=== PATIENT | male | born 1985 ===

== ENCOUNTER 2023-09-05 11:38 | Outpatient (REF) | payer MEDICAID, SELFPAY ==
[2023-09-05 13:17] LABS: MANUAL DIFF FLAG NO
[2023-09-05 13:25] LABS: Basophils Percent Auto 0.4 % (0-2); Eosinophils Percent Auto 0.4 % (0-4); Hematocrit 46.7 % (42.0-52.0); Hemoglobin 15.4 g/dl (14.0-18.0); Imm Gran Abs Auto 0.03 X10*3/uL (0.00-0.03); Imm Gran Pct Auto 0.3 % (0.0-0.4); Mean Corpuscular Hemoglobin 29.1 pg (27.0-33.0); Mean Corpuscular Volume 88.1 fL (80.0-98.0); Mean Platelet Volume 11.2 fL (9.4-12.4); Monocytes Absolute Auto 0.5 X10*3/uL (0.1-1.2); Monocytes Percent Auto 4.7 % (2-11); Neutrophils Absolute Auto 6.7 x10*3/uL (2.0-8.3); Neutrophils Percent Auto 65.2 % (45-73); Platelet Count 370 X10*3/uL (160-400); Red Cell Distribution Width 14.2 % (11.0-16.0); White Blood Count 10.3 X10*3/uL (4.8-10.8)
[2023-09-05 13:34] LABS: Estimated Average Glucose 111 mg/dL; Hemoglobin A1c % 5.5 % (<6.0)
[2023-09-05 14:12] LABS: Microalbum/Creatinine Ratio Ur 26.7 ug/mg cr (<30)
[2023-09-05 14:40] LABS: Alanine Aminotransferase 16 U/L (0-40); Albumin Level 4.4 g/dL (3.5-5.0); Alkaline Phosphatase 89 U/L (39-117); Anion Gap 18 (12-20); Aspartate Amino Transferase 16 U/L (5-37); Bilirubin Total 0.9 mg/dL (0.0-1.0); Blood Urea Nitrogen 9 mg/dL (9-16); Calcium 9.7 mg/dL (8.4-10.2); Carbon Dioxide 22 mmol/L (22-29); Chloride 108 mmol/L (96-108); Cholesterol 202 mg/dL (<200); Estimated Glomerular Filt Rate > 60; Glucose Random 103 mg/dL (60-115); HDL Cholesterol 49 mg/dL (>40); LDL Cholesterol Calculated 131 mg/dL (<100); Potassium 3.6 mmol/L (3.3-5.1); Sodium 144 mmol/L (135-145); Total Protein 8.5 g/dL (6.5-8.0); Triglycerides 111 mg/dL (<150); Vitamin D 25-OH Total 32.7 ng/mL (>30)
[2023-09-06 18:54] LABS: HCV Log PCR <1.18 NOT DETECTED Log IU/mL (NOT DETECTED); HepC Viral Load <15 NOT DETECTED IU/mL (NOT DETECTED)
== END 2023-09-05 11:39 | disposition home or self-care (01) ==
LOC: HO.HHCL 11:38
PROVIDERS: Visit Provider Family Medicine
DX: E11.9 Type 2 diabetes mellitus without complications (principal); E55.9 Vitamin D deficiency, unspecified; K21.9 Gastro-esophageal reflux disease without esophagitis; B18.2 Chronic viral hepatitis C
CPT/HCPCS: 36415; 80053; 80061; 82043; 82306; 82570; 83036; 85025; 87522

== ENCOUNTER 2023-09-30 19:19 | Inpatient (IN) | payer MEDICAID, OTHER, SELFPAY ==
[2023-09-30 19:36] VITALS: BP 130/73; PULSE 73; RESP 16; TEMP 36.6; O2SAT 98; BMI 38.8
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
[2023-09-30 20:44] LABS: MANUAL DIFF FLAG NO
[2023-09-30 20:52] LABS: Basophils Absolute Auto 0.1 X10*3/uL (0.0-0.2); Basophils Percent Auto 0.4 % (0-2); Eosinophils Absolute Auto 0.1 X10*3/uL (0.0-0.4); Eosinophils Percent Auto 0.8 % (0-4); Hematocrit 45.2 % (42.0-52.0); Hemoglobin 15.3 g/dl (14.0-18.0); Imm Gran Abs Auto 0.03 X10*3/uL (0.00-0.03); Imm Gran Pct Auto 0.2 % (0.0-0.4); Lymphocytes Absolute Auto 2.9 X10*3/uL (1.2-4.9); Lymphocytes Percent Auto 21.6 % (20-40); Mean Corpuscular HGB Conc 33.8 g/dl (31.0-36.0); Mean Corpuscular Hemoglobin 29.4 pg (27.0-33.0); Mean Corpuscular Volume 86.9 fL (80.0-98.0); Mean Platelet Volume 10.7 fL (9.4-12.4); Monocytes Absolute Auto 0.7 X10*3/uL (0.1-1.2); Monocytes Percent Auto 4.9 % (2-11); Neutrophils Absolute Auto 9.8 x10*3/uL (2.0-8.3); Neutrophils Percent Auto 72.1 % (45-73); Platelet Count 298 X10*3/uL (160-400); Red Cell Distribution Width 14.3 % (11.0-16.0); White Blood Count 13.6 X10*3/uL (4.8-10.8)
[2023-09-30 21:00] LABS: IDNOW Serial# 08D9AD1C
[2023-09-30 21:01] LABS: COVID-19 Test Negative (Negative)
[2023-09-30 21:09] LABS: Ethanol < 10 mg/dL
[2023-09-30 21:11] LABS: Alanine Aminotransferase 56 U/L (0-40); Albumin Level 4.4 g/dL (3.5-5.0); Alkaline Phosphatase 88 U/L (39-117); Anion Gap 13 (12-20); Aspartate Amino Transferase 158 U/L (5-37); Bilirubin Total 1.9 mg/dL (0.0-1.0); Blood Urea Nitrogen 20 mg/dL (9-16); Carbon Dioxide 22 mmol/L (22-29); Chloride 108 mmol/L (96-108); Creatinine Clr Calc Pharmacy 72.2; Estimated Glomerular Filt Rate 44; Glucose Random 136 mg/dL (60-115); Potassium 3.3 mmol/L (3.3-5.1); Sodium 140 mmol/L (135-145); Total Protein 8.1 g/dL (6.5-8.0)
[2023-09-30 22:44] LABS: Appearance Urine Clear; Color Urine Dark Yellow; Glucose Urine UA Negative (Negative); Leukocyte Esterase Urine Negative (Negative); Nitrite Urine Negative (Negative); Specific Gravity - Urine >= 1.030 (1.005-1.025); UMIC TRIGGER UACC YES; Urine Blood Negative (Negative); Urine Ketones 40 mg/dL (Negative); Urine Protein 30 (1+) mg/dL (Neg-Trace)
[2023-09-30 22:49] LABS: Bacteria Urine None Seen (None Seen); Hyaline Casts Urine 0-2 /LPF (0-2); RBC Urine 0-2 /HPF (0-2); Squamous Epithelial Cell Urine 0-2 /HPF (0-2); WBC Urine 0-5 /HPF (0-5)
[2023-09-30 22:54] LABS: Amphetamine Screen Urine Not Detected (Not Detect); Barbiturates, Urine Not Detected (Not Detect); Benzodiazepines Screen Urine Not Detected (Not Detect); Buprenorphine Scr Not Detected (Not Detect); Cannabinoid Screen Urine POSITIVE (Not Detect); Cocaine Screen Urine POSITIVE (Not Detect); Fentanyl, urine Not Detected (Not Detect); Methadone Screen, Urine Not Detected (Not Detect); Opiate Screen Urine Not Detected (Not Detect); Oxycodone Screen Urine Not Detected (Not Detect); Phencyclidine Screen Urine Not Detected (Not Detect)
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
[2023-10-01 06:30] VITALS: BP 92/68; PULSE 90; RESP 16; TEMP 37.1; O2SAT 98
[2023-10-01 07:25] VITALS: BP 123/74; PULSE 73; RESP 16; TEMP 36.8; O2SAT 97
--- NOTE | 2023-10-01 07:25 | PC.NURSE ---
PT IS A/O X 4 NO SOB/NIA NOTED SPEAKS IN FULL SENTENCES. PT DENIES ANY PAIN/DISC. PT AMB (I) GAIT STEADY TO BATHROOM AND BTB. PT STATES +SI, DENIES ANY HALLUCINATIONS. PT AWARE OF PLAN OF CARE. WILL CONTINUE TO MONITOR.
--- NOTE | 2023-10-01 07:53 | ECG_ITS ---
Test Reason : QT INTERVAL Blood Pressure : / mmHG Vent. Rate : 060 BPM Atrial Rate : 060 BPM P-R Int : 140 ms QRS Dur : 080 ms QT Int : 498 ms P-R-T Axes : 046 018 -05 degrees QTc Int : 498 ms Normal sinus rhythm Nonspecific T wave abnormality Prolonged QT Abnormal ECG No previous ECGs available Referred By: Treva Shannon Electronically Signed By:MURIEL LICONA MD
[2023-10-01 08:07] LABS: Anion Gap 15 (12-20); Blood Urea Nitrogen 16 mg/dL (9-16); Calcium 9.5 mg/dL (8.4-10.2); Carbon Dioxide 21 mmol/L (22-29); Chloride 108 mmol/L (96-108); Creatinine Clr Calc Pharmacy 123.9; Estimated Glomerular Filt Rate > 60; Glucose Random 106 mg/dL (60-115); Potassium 3.2 mmol/L (3.3-5.1); Sodium 141 mmol/L (135-145)
--- NOTE | 2023-10-01 08:29 | ECG_ITS ---
Test Reason : QT INTERVAL Blood Pressure : / mmHG Vent. Rate : 062 BPM Atrial Rate : 062 BPM P-R Int : 152 ms QRS Dur : 078 ms QT Int : 464 ms P-R-T Axes : 031 003 000 degrees QTc Int : 470 ms Normal sinus rhythm Normal ECG When compared with ECG of 01-OCT-2023 08:00, No significant change was found Referred By: Treva Shannon Electronically Signed By:MURIEL LICONA MD
[2023-10-01] MEDS: Potassium Chloride Packet 20 MEQ PACKET 40 MEQ PO (08:40)
--- NOTE | 2023-10-01 10:17 | PHA.MEDREC ---
Pharmacy Consult ? Medication Reconciliation Pharmacy has completed the medication reconciliation. Reviewed med rec done by nursing
[2023-10-01] MEDS: Famotidine 20 MG TABLET 40 MG PO (10:31)
[2023-10-01] MEDS: FLUoxetine HCl 20 MG CAPSULE 40 MG PO (10:31)
[2023-10-01] MEDS: metFORMIN HCl 500 MG TABLET PO ×2 (10:31→16:57)
[2023-10-01] MEDS: Aspirin Enteric Coated 81 MG TABLET.DR PO (10:32)
[2023-10-01] MEDS: Cholecalciferol (Vitamin D3) 25 MCG TABLET 50 MCG PO (10:32)
[2023-10-01] MEDS: Atorvastatin Calcium 20 MG TABLET PO (10:32)
[2023-10-01] MEDS: OXcarbazepine 300 MG TABLET PO ×2 (10:32→21:04)
[2023-10-01] MEDS: OLANZapine 10 MG TABLET PO ×2 (10:33→21:05)
[2023-10-01] MEDS: Losartan Potassium 25 MG TABLET PO (10:40)
[2023-10-01] MEDS: SITagliptin Phosphate 50 MG TABLET PO (11:22)
--- NOTE | 2023-10-01 13:41 | PC.NURSE ---
RN TO RN REPORT GIVEN TO TOBI PT AWARE OF PLAN OF CARE FOR TRANSFER TO [facility].
[2023-10-01 14:48] VITALS: BP 105/59; PULSE 68; RESP 20; TEMP 36.8; O2SAT 97
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
[2023-10-01 20:00] VITALS: BP 125/60; PULSE 65; RESP 16; TEMP 36.9; O2SAT 98
[2023-10-01 21:03] VITALS: BP 125/60
[2023-10-01] MEDS: Prazosin HCL 1 MG CAPSULE 2 MG PO (21:03)
[2023-10-01 21:04] VITALS: BP 125/60
[2023-10-01] MEDS: Prazosin HCL 5 MG CAPSULE PO (21:04)
[2023-10-01] MEDS: traZODone HCL 100 MG TABLET PO (21:04)
[2023-10-02] MEDS: Losartan Potassium 25 MG TABLET PO (08:23)
[2023-10-02] MEDS: Atorvastatin Calcium 20 MG TABLET PO (08:23)
[2023-10-02] MEDS: Aspirin Enteric Coated 81 MG TABLET.DR PO (08:23)
[2023-10-02] MEDS: Cholecalciferol (Vitamin D3) 25 MCG TABLET 50 MCG PO (08:23)
[2023-10-02] MEDS: OXcarbazepine 300 MG TABLET PO ×2 (08:23→20:29)
[2023-10-02] MEDS: SITagliptin Phosphate 50 MG TABLET PO (08:23)
[2023-10-02] MEDS: FLUoxetine HCl 20 MG CAPSULE 40 MG PO (08:23)
[2023-10-02] MEDS: OLANZapine 10 MG TABLET PO ×2 (08:23→20:29)
[2023-10-02] MEDS: Famotidine 20 MG TABLET 40 MG PO (08:23)
[2023-10-02] MEDS: metFORMIN HCl 500 MG TABLET PO ×2 (08:24→17:08)
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
[2023-10-02 20:28] VITALS: BP 109/56
[2023-10-02] MEDS: Prazosin HCL 5 MG CAPSULE PO (20:28)
[2023-10-02] MEDS: Prazosin HCL 1 MG CAPSULE 2 MG PO (20:28)
[2023-10-02] MEDS: traZODone HCL 100 MG TABLET PO (20:29)
[2023-10-02] MEDS: Bacitracin Oint 14 GM TUBE 1 APPL TOPICAL (20:33)
[2023-10-02 21:16] VITALS: BP 109/56; PULSE 78; RESP 16; TEMP 36.4; O2SAT 98
[2023-10-03 07:40] VITALS: BP 95/55; PULSE 62; RESP 14; TEMP 36.9; O2SAT 96
[2023-10-03 08:12] LABS: Glucose, Whole Blood 102 mg/dL (60-115)
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
[2023-10-03] MEDS: OLANZapine 10 MG TABLET PO ×2 (09:35→22:58)
[2023-10-03] MEDS: metFORMIN HCl 500 MG TABLET PO ×2 (09:35→17:09)
[2023-10-03] MEDS: Atorvastatin Calcium 20 MG TABLET PO (09:35)
[2023-10-03] MEDS: OXcarbazepine 300 MG TABLET PO ×2 (09:36→22:58)
[2023-10-03] MEDS: SITagliptin Phosphate 50 MG TABLET PO (09:36)
[2023-10-03] MEDS: FLUoxetine HCl 20 MG CAPSULE 40 MG PO (09:36)
[2023-10-03] MEDS: Losartan Potassium 25 MG TABLET PO (09:36)
[2023-10-03] MEDS: Aspirin Enteric Coated 81 MG TABLET.DR PO (09:36)
[2023-10-03] MEDS: Famotidine 20 MG TABLET 40 MG PO (09:36)
[2023-10-03] MEDS: Cholecalciferol (Vitamin D3) 25 MCG TABLET 50 MCG PO (09:36)
--- NOTE | 2023-10-03 14:49 | MHC.RECOVRN ---
Attempted to meet with pt to check in after consult placed to Addiction Medicine for [employer]. Pt sleeping soundly, does not wake to voice. Will return at a later time.
[2023-10-03 22:50] VITALS: BP 127/76; PULSE 79; RESP 16; TEMP 36.3; O2SAT 98
[2023-10-03 22:58] VITALS: BP 127/76
[2023-10-03] MEDS: Prazosin HCL 1 MG CAPSULE 2 MG PO (22:58)
[2023-10-03] MEDS: Prazosin HCL 5 MG CAPSULE PO (22:58)
[2023-10-03] MEDS: traZODone HCL 100 MG TABLET PO (22:58)
[2023-10-03] MEDS: Bacitracin Oint 14 GM TUBE 1 APPL TOPICAL (23:00)
[2023-10-03 23:02] LABS: Glucose, Whole Blood 93 mg/dL (60-115)
[2023-10-04 08:05] VITALS: BP 126/68; PULSE 68; RESP 18; TEMP 36.7; O2SAT 98
[2023-10-04] MEDS: FLUoxetine HCl 20 MG CAPSULE 40 MG PO (08:41)
[2023-10-04] MEDS: Bacitracin Oint 14 GM TUBE 1 APPL TOPICAL ×2 (08:41→21:34)
[2023-10-04] MEDS: OLANZapine 10 MG TABLET PO ×2 (08:41→21:32)
[2023-10-04 08:42] VITALS: BP 126/68
[2023-10-04] MEDS: Atorvastatin Calcium 20 MG TABLET PO (08:42)
[2023-10-04] MEDS: Losartan Potassium 25 MG TABLET PO (08:42)
[2023-10-04] MEDS: SITagliptin Phosphate 50 MG TABLET PO (08:42)
[2023-10-04] MEDS: OXcarbazepine 300 MG TABLET PO ×2 (08:42→21:31)
[2023-10-04] MEDS: metFORMIN HCl 500 MG TABLET PO ×2 (08:42→18:10)
[2023-10-04] MEDS: Cholecalciferol (Vitamin D3) 25 MCG TABLET 50 MCG PO (08:42)
[2023-10-04] MEDS: Aspirin Enteric Coated 81 MG TABLET.DR PO (08:43)
[2023-10-04] MEDS: Famotidine 20 MG TABLET 40 MG PO (08:43)
[2023-10-04 08:54] LABS: Glucose, Whole Blood 79 mg/dL (60-115)
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
[2023-10-04 21:18] VITALS: BP 135/84; PULSE 75; RESP 16; TEMP 36.4; O2SAT 98
[2023-10-04 21:28] LABS: Glucose, Whole Blood 90 mg/dL (60-115)
[2023-10-04] MEDS: traZODone HCL 100 MG TABLET PO (21:32)
[2023-10-04] MEDS: Prazosin HCL 5 MG CAPSULE PO (21:32)
[2023-10-04] MEDS: Prazosin HCL 1 MG CAPSULE 2 MG PO (21:32)
[2023-10-05 07:35] VITALS: BP 138/87; PULSE 66; RESP 18; TEMP 36.4; O2SAT 99
[2023-10-05 08:14] LABS: Glucose, Whole Blood 181 mg/dL (60-115)
[2023-10-05 08:22] LABS: MANUAL DIFF FLAG NO
[2023-10-05 08:29] LABS: Basophils Absolute Auto 0.1 X10*3/uL (0.0-0.2); Basophils Percent Auto 0.5 % (0-2); Eosinophils Absolute Auto 0.2 X10*3/uL (0.0-0.4); Eosinophils Percent Auto 2.1 % (0-4); Hematocrit 43.9 % (42.0-52.0); Hemoglobin 14.5 g/dl (14.0-18.0); Imm Gran Abs Auto 0.03 X10*3/uL (0.00-0.03); Imm Gran Pct Auto 0.3 % (0.0-0.4); Lymphocytes Absolute Auto 4.1 X10*3/uL (1.2-4.9); Lymphocytes Percent Auto 41.8 % (20-40); Mean Corpuscular Hemoglobin 29.8 pg (27.0-33.0); Mean Corpuscular Volume 90.3 fL (80.0-98.0); Mean Platelet Volume 10.4 fL (9.4-12.4); Monocytes Absolute Auto 0.4 X10*3/uL (0.1-1.2); Monocytes Percent Auto 3.9 % (2-11); Neutrophils Absolute Auto 5.1 x10*3/uL (2.0-8.3); Neutrophils Percent Auto 51.4 % (45-73); Platelet Count 279 X10*3/uL (160-400); Red Blood Count 4.86 X10*6/uL (4.60-5.80); Red Cell Distribution Width 14.1 % (11.0-16.0); White Blood Count 9.8 X10*3/uL (4.8-10.8)
[2023-10-05 08:39] LABS: Alanine Aminotransferase 26 U/L (0-40); Albumin Level 3.8 g/dL (3.5-5.0); Alkaline Phosphatase 83 U/L (39-117); Anion Gap 14 (12-20); Aspartate Amino Transferase 22 U/L (5-37); Bilirubin Total 0.3 mg/dL (0.0-1.0); Blood Urea Nitrogen 13 mg/dL (9-16); Calcium 9.4 mg/dL (8.4-10.2); Carbon Dioxide 24 mmol/L (22-29); Chloride 107 mmol/L (96-108); Cholesterol 134 mg/dL (<200); Estimated Glomerular Filt Rate > 60; Glucose Fasting 157 mg/dL (60-99); HDL Cholesterol 42 mg/dL (>40); LDL Cholesterol Calculated 66 mg/dL (<100); Potassium 3.7 mmol/L (3.3-5.1); Sodium 141 mmol/L (135-145); Total Protein 7.1 g/dL (6.5-8.0); Triglycerides 133 mg/dL (<150)
[2023-10-05] MEDS: Nicotine 21 MG PATCH.TD24 TRANSDERMA (08:44)
[2023-10-05] MEDS: Bacitracin Oint 14 GM TUBE 1 APPL TOPICAL ×2 (08:44→21:39)
[2023-10-05] MEDS: SITagliptin Phosphate 50 MG TABLET PO (08:45)
[2023-10-05] MEDS: FLUoxetine HCl 20 MG CAPSULE 40 MG PO (08:45)
[2023-10-05] MEDS: metFORMIN HCl 500 MG TABLET PO ×2 (08:45→17:34)
[2023-10-05] MEDS: Atorvastatin Calcium 20 MG TABLET PO (08:45)
[2023-10-05] MEDS: Famotidine 20 MG TABLET 40 MG PO (08:45)
[2023-10-05] MEDS: OLANZapine 10 MG TABLET PO ×2 (08:45→21:40)
[2023-10-05] MEDS: Aspirin Enteric Coated 81 MG TABLET.DR PO (08:45)
[2023-10-05] MEDS: OXcarbazepine 300 MG TABLET PO ×2 (08:45→21:40)
[2023-10-05 08:46] VITALS: BP 138/87
[2023-10-05] MEDS: Cholecalciferol (Vitamin D3) 25 MCG TABLET 50 MCG PO (08:46)
[2023-10-05] MEDS: Losartan Potassium 25 MG TABLET PO (08:46)
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
--- NOTE | 2023-10-05 09:43 | MHC.RECOVRN ---
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 Pt awake, alert, easily engages in conversation. Pt states I've done all kinds of drugs. Currently, pt reports cocaine and marijuana use. Pt reports day prior to presentation using cocaine, 7 grams, IN. Pt reports typical amount is 3.5 grams over 2-3 days. Pt states I'll feel like I want to crawl out of my skin so I'll stop for a couple days. Pt denies hx DIEUDONNE tx. Discussed outpatient recovery supports and options, pt continues to express interest in women's swim coach. Pt is also interest in [facility] for further treatment. Pt encouraged to discuss dc plans with SW. Provided pt with written resources and information as well as t/w contact information if needed. Pt denies questions or concerns for t/w. Plan for women's swim coach to see pt 10/06/23.
[2023-10-05 20:53] LABS: Glucose, Whole Blood 100 mg/dL (60-115)
[2023-10-05 21:30] VITALS: BP 141/77; PULSE 73; RESP 16; TEMP 36.9; O2SAT 99
[2023-10-05] MEDS: Prazosin HCL 1 MG CAPSULE 2 MG PO (21:39)
[2023-10-05] MEDS: traZODone HCL 100 MG TABLET PO (21:40)
[2023-10-05] MEDS: Prazosin HCL 5 MG CAPSULE PO (21:40)
[2023-10-06 07:49] VITALS: BP 129/70; PULSE 64; RESP 16; TEMP 36.3; O2SAT 98
[2023-10-06 08:41] VITALS: BP 129/70
[2023-10-06] MEDS: Losartan Potassium 25 MG TABLET PO (08:41)
[2023-10-06] MEDS: Cholecalciferol (Vitamin D3) 25 MCG TABLET 50 MCG PO (08:41)
[2023-10-06] MEDS: metFORMIN HCl 500 MG TABLET PO ×2 (08:41→17:40)
[2023-10-06] MEDS: SITagliptin Phosphate 50 MG TABLET PO (08:41)
[2023-10-06] MEDS: OXcarbazepine 300 MG TABLET PO ×2 (08:41→22:45)
[2023-10-06] MEDS: FLUoxetine HCl 20 MG CAPSULE 40 MG PO (08:41)
[2023-10-06] MEDS: OLANZapine 10 MG TABLET PO ×2 (08:41→22:45)
[2023-10-06] MEDS: Aspirin Enteric Coated 81 MG TABLET.DR PO (08:41)
[2023-10-06] MEDS: Atorvastatin Calcium 20 MG TABLET PO (08:41)
[2023-10-06] MEDS: Famotidine 20 MG TABLET 40 MG PO (08:41)
[2023-10-06] MEDS: Nicotine 21 MG PATCH.TD24 TRANSDERMA (08:43)
[2023-10-06 08:57] LABS: Glucose, Whole Blood 118 mg/dL (60-115)
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
[2023-10-06] MEDS: hydrOXYzine HCL 25 MG TABLET PO (14:25)
[2023-10-06 21:32] LABS: Glucose, Whole Blood 125 mg/dL (60-115)
[2023-10-06 22:40] VITALS: BP 133/81; PULSE 96; RESP 16; TEMP 36.9; O2SAT 97
[2023-10-06] MEDS: Prazosin HCL 5 MG CAPSULE PO (22:44)
[2023-10-06] MEDS: traZODone HCL 100 MG TABLET PO (22:44)
[2023-10-06] MEDS: Bacitracin Oint 14 GM TUBE 1 APPL TOPICAL (22:44)
[2023-10-06] MEDS: Prazosin HCL 1 MG CAPSULE 2 MG PO (22:45)
[2023-10-07 07:59] LABS: Glucose, Whole Blood 85 mg/dL (60-115)
[2023-10-07 08:00] VITALS: BP 110/59; PULSE 61; RESP 18; TEMP 36.4; O2SAT 96
[2023-10-07] MEDS: Atorvastatin Calcium 20 MG TABLET PO (08:39)
[2023-10-07] MEDS: FLUoxetine HCl 20 MG CAPSULE 40 MG PO (08:40)
[2023-10-07] MEDS: Cholecalciferol (Vitamin D3) 25 MCG TABLET 50 MCG PO (08:40)
[2023-10-07 08:41] VITALS: BP 110/59
[2023-10-07] MEDS: Losartan Potassium 25 MG TABLET PO (08:41)
[2023-10-07] MEDS: Aspirin Enteric Coated 81 MG TABLET.DR PO (08:42)
[2023-10-07] MEDS: Famotidine 20 MG TABLET 40 MG PO (08:42)
[2023-10-07] MEDS: OXcarbazepine 300 MG TABLET PO ×2 (08:43→22:26)
[2023-10-07] MEDS: SITagliptin Phosphate 50 MG TABLET PO (08:43)
[2023-10-07] MEDS: metFORMIN HCl 500 MG TABLET PO ×2 (08:43→17:25)
[2023-10-07] MEDS: OLANZapine 10 MG TABLET PO ×2 (08:43→22:28)
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
[2023-10-07] MEDS: hydrOXYzine HCL 25 MG TABLET PO (11:42)
[2023-10-07 21:00] LABS: Glucose, Whole Blood 113 mg/dL (60-115)
[2023-10-07 22:25] VITALS: BP 138/88; PULSE 82; RESP 16; TEMP 36.9; O2SAT 98
[2023-10-07] MEDS: Bacitracin Oint 14 GM TUBE 1 APPL TOPICAL (22:26)
[2023-10-07] MEDS: traZODone HCL 100 MG TABLET PO (22:27)
[2023-10-07] MEDS: Prazosin HCL 5 MG CAPSULE PO (22:27)
[2023-10-07] MEDS: Prazosin HCL 1 MG CAPSULE 2 MG PO (22:27)
[2023-10-08 07:40] VITALS: BP 129/60; PULSE 75; RESP 22; TEMP 35.8; O2SAT 93
[2023-10-08 08:30] LABS: Glucose, Whole Blood 88 mg/dL (60-115)
[2023-10-08] MEDS: Cholecalciferol (Vitamin D3) 25 MCG TABLET 50 MCG PO (08:38)
[2023-10-08] MEDS: FLUoxetine HCl 20 MG CAPSULE 60 MG PO (08:39)
[2023-10-08] MEDS: metFORMIN HCl 500 MG TABLET PO ×2 (08:40→17:08)
[2023-10-08] MEDS: Famotidine 20 MG TABLET 40 MG PO (08:40)
[2023-10-08] MEDS: Atorvastatin Calcium 20 MG TABLET PO (08:40)
[2023-10-08] MEDS: OLANZapine 10 MG TABLET PO ×2 (08:41→22:33)
[2023-10-08] MEDS: Aspirin Enteric Coated 81 MG TABLET.DR PO (08:41)
[2023-10-08] MEDS: OXcarbazepine 300 MG TABLET PO ×2 (08:41→22:32)
[2023-10-08] MEDS: SITagliptin Phosphate 50 MG TABLET PO (08:42)
[2023-10-08 08:49] VITALS: BP 132/74; PULSE 63; RESP 16
[2023-10-08 08:50] VITALS: BP 132/74
[2023-10-08] MEDS: Losartan Potassium 25 MG TABLET PO (08:50)
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
[2023-10-08 20:10] VITALS: BP 141/78; PULSE 77; RESP 16; TEMP 36.7; O2SAT 98
[2023-10-08 22:18] VITALS: BP 127/75; PULSE 70
[2023-10-08] MEDS: Prazosin HCL 1 MG CAPSULE 2 MG PO (22:32)
[2023-10-08] MEDS: Prazosin HCL 5 MG CAPSULE PO (22:33)
[2023-10-08] MEDS: traZODone HCL 100 MG TABLET PO (22:33)
[2023-10-09 07:00] VITALS: BMI 33.5
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
[2023-10-09 09:35] VITALS: BP 121/58; PULSE 98; RESP 16; TEMP 36.7; O2SAT 95
[2023-10-09] MEDS: Aspirin Enteric Coated 81 MG TABLET.DR PO (09:40)
[2023-10-09] MEDS: metFORMIN HCl 500 MG TABLET PO ×2 (09:40→17:43)
[2023-10-09] MEDS: Cholecalciferol (Vitamin D3) 25 MCG TABLET 50 MCG PO (09:40)
[2023-10-09] MEDS: OXcarbazepine 300 MG TABLET PO ×2 (09:40→22:34)
[2023-10-09] MEDS: Atorvastatin Calcium 20 MG TABLET PO (09:40)
[2023-10-09] MEDS: OLANZapine 10 MG TABLET PO ×2 (09:40→22:34)
[2023-10-09] MEDS: SITagliptin Phosphate 50 MG TABLET PO (09:40)
[2023-10-09] MEDS: FLUoxetine HCl 20 MG CAPSULE 60 MG PO (09:40)
[2023-10-09 09:41] VITALS: BP 121/58
[2023-10-09] MEDS: Famotidine 20 MG TABLET 40 MG PO (09:41)
[2023-10-09] MEDS: Losartan Potassium 25 MG TABLET PO (09:41)
[2023-10-09 12:32] LABS: Glucose, Whole Blood 83 mg/dL (60-115)
--- NOTE | 2023-10-09 19:01 | MHC.RECOVSUP ---
? Reason for consult o Current location: 324-1 o Identified substance use concern: Cocane - Support ? Intervention: o Community resources provided o Harm reduction discussion ? Plan: o Patient to follow up with [facility] after discharge ? Additional information: Met with patient and we talked about recovery and Harm reduction.. We talked about recovery resources, And Networking. Patient stated that he wants to go to [facility] program.
[2023-10-09 22:21] VITALS: BP 129/83; PULSE 77; RESP 18; TEMP 36.4; O2SAT 98
[2023-10-09] MEDS: Prazosin HCL 1 MG CAPSULE 2 MG PO (22:33)
[2023-10-09] MEDS: Prazosin HCL 5 MG CAPSULE PO (22:33)
[2023-10-09] MEDS: traZODone HCL 100 MG TABLET PO (22:33)
[2023-10-10 07:39] VITALS: BP 113/64; PULSE 70; RESP 14; TEMP 36.5; O2SAT 97
[2023-10-10 08:12] LABS: Glucose, Whole Blood 138 mg/dL (60-115)
[2023-10-10] MEDS: FLUoxetine HCl 20 MG CAPSULE 60 MG PO (08:40)
[2023-10-10] MEDS: metFORMIN HCl 500 MG TABLET PO ×2 (08:41→17:34)
[2023-10-10] MEDS: OXcarbazepine 300 MG TABLET PO ×2 (08:41→22:11)
[2023-10-10] MEDS: Cholecalciferol (Vitamin D3) 25 MCG TABLET 50 MCG PO (08:41)
[2023-10-10] MEDS: Famotidine 20 MG TABLET 40 MG PO (08:41)
[2023-10-10] MEDS: Atorvastatin Calcium 20 MG TABLET PO (08:41)
[2023-10-10] MEDS: SITagliptin Phosphate 50 MG TABLET PO (08:41)
[2023-10-10] MEDS: Aspirin Enteric Coated 81 MG TABLET.DR PO (08:41)
[2023-10-10] MEDS: Magnesium Hydrox/Alum Hydrox 30 ML ORAL.SUSP PO (08:49)
[2023-10-10 08:52] VITALS: BP 117/68
[2023-10-10] MEDS: Losartan Potassium 25 MG TABLET PO (08:52)
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
[2023-10-10 20:00] VITALS: BP 129/75; PULSE 86; RESP 16; TEMP 36.8; O2SAT 98
[2023-10-10 21:28] LABS: Glucose, Whole Blood 118 mg/dL (60-115)
[2023-10-10] MEDS: Prazosin HCL 1 MG CAPSULE 2 MG PO (22:10)
[2023-10-10] MEDS: traZODone HCL 100 MG TABLET PO (22:11)
[2023-10-10] MEDS: Prazosin HCL 5 MG CAPSULE PO (22:11)
[2023-10-10] MEDS: OLANZapine 10 MG TABLET 20 MG PO (22:11)
[2023-10-11 07:47] VITALS: BP 106/59; PULSE 76; RESP 16; TEMP 36.6; O2SAT 98
[2023-10-11] MEDS: SITagliptin Phosphate 50 MG TABLET PO (08:54)
[2023-10-11] MEDS: FLUoxetine HCl 20 MG CAPSULE 60 MG PO (08:54)
[2023-10-11] MEDS: Atorvastatin Calcium 20 MG TABLET PO (08:54)
[2023-10-11 08:55] VITALS: BP 106/59
[2023-10-11] MEDS: Aspirin Enteric Coated 81 MG TABLET.DR PO (08:55)
[2023-10-11] MEDS: metFORMIN HCl 500 MG TABLET PO ×2 (08:55→17:03)
[2023-10-11] MEDS: Losartan Potassium 25 MG TABLET PO (08:55)
[2023-10-11] MEDS: Famotidine 20 MG TABLET 40 MG PO (08:55)
[2023-10-11] MEDS: Cholecalciferol (Vitamin D3) 25 MCG TABLET 50 MCG PO (08:55)
[2023-10-11 09:07] LABS: Glucose, Whole Blood 86 mg/dL (60-115)
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
[2023-10-11] MEDS: OXcarbazepine 300 MG TABLET PO ×2 (10:07→22:22)
[2023-10-11] MEDS: Magnesium Hydrox/Alum Hydrox 30 ML ORAL.SUSP PO (15:09)
[2023-10-11 22:19] LABS: Glucose, Whole Blood 97 mg/dL (60-115)
[2023-10-11] MEDS: traZODone HCL 100 MG TABLET PO (22:20)
[2023-10-11] MEDS: Prazosin HCL 5 MG CAPSULE PO (22:21)
[2023-10-11] MEDS: OLANZapine 10 MG TABLET 20 MG PO (22:21)
[2023-10-11] MEDS: Prazosin HCL 1 MG CAPSULE 2 MG PO (22:21)
[2023-10-11 22:24] VITALS: BP 163/62; PULSE 82; RESP 16; TEMP 36.6; O2SAT 97
[2023-10-12 08:00] VITALS: BP 119/62; PULSE 66; RESP 18; TEMP 37; O2SAT 97
[2023-10-12 08:28] LABS: Creatinine Clr Calc Pharmacy 139.6; Estimated Glomerular Filt Rate > 60
[2023-10-12 09:00] LABS: Glucose, Whole Blood 86 mg/dL (60-115)
[2023-10-12] MEDS: Famotidine 20 MG TABLET 40 MG PO (09:16)
[2023-10-12] MEDS: FLUoxetine HCl 20 MG CAPSULE 60 MG PO (09:16)
[2023-10-12 09:17] VITALS: BP 119/62
[2023-10-12] MEDS: Losartan Potassium 25 MG TABLET PO (09:17)
[2023-10-12] MEDS: SITagliptin Phosphate 50 MG TABLET PO (09:17)
[2023-10-12] MEDS: Cholecalciferol (Vitamin D3) 25 MCG TABLET 50 MCG PO (09:17)
[2023-10-12] MEDS: OXcarbazepine 300 MG TABLET PO ×2 (09:17→22:28)
[2023-10-12] MEDS: metFORMIN HCl 500 MG TABLET PO ×2 (09:17→16:58)
[2023-10-12] MEDS: Aspirin Enteric Coated 81 MG TABLET.DR PO (09:17)
[2023-10-12] MEDS: Atorvastatin Calcium 20 MG TABLET PO (09:17)
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
[2023-10-12 12:38] LABS: Glucose, Whole Blood 94 mg/dL (60-115)
[2023-10-12 19:35] VITALS: BP 123/66; PULSE 74; RESP 16; TEMP 36.9; O2SAT 99
[2023-10-12 22:02] LABS: Glucose, Whole Blood 129 mg/dL (60-115)
[2023-10-12 22:27] VITALS: BP 130/76
[2023-10-12] MEDS: Prazosin HCL 1 MG CAPSULE 2 MG PO (22:27)
[2023-10-12] MEDS: Prazosin HCL 5 MG CAPSULE PO (22:27)
[2023-10-12] MEDS: traZODone HCL 100 MG TABLET PO (22:28)
[2023-10-12] MEDS: OLANZapine 10 MG TABLET 20 MG PO (22:28)
[2023-10-13 07:56] LABS: Glucose, Whole Blood 78 mg/dL (60-115)
[2023-10-13 08:00] VITALS: BP 128/77; PULSE 77; RESP 16; TEMP 36.8; O2SAT 99
[2023-10-13 08:51] VITALS: BP 128/77
[2023-10-13] MEDS: SITagliptin Phosphate 50 MG TABLET PO (08:51)
[2023-10-13] MEDS: Cholecalciferol (Vitamin D3) 25 MCG TABLET 50 MCG PO (08:51)
[2023-10-13] MEDS: Losartan Potassium 25 MG TABLET PO (08:51)
[2023-10-13] MEDS: FLUoxetine HCl 20 MG CAPSULE 60 MG PO (08:51)
[2023-10-13] MEDS: Famotidine 20 MG TABLET 40 MG PO (08:51)
[2023-10-13] MEDS: metFORMIN HCl 500 MG TABLET PO ×2 (08:51→16:52)
[2023-10-13] MEDS: Aspirin Enteric Coated 81 MG TABLET.DR PO (08:51)
[2023-10-13] MEDS: OXcarbazepine 300 MG TABLET PO ×2 (08:51→22:28)
[2023-10-13] MEDS: Atorvastatin Calcium 20 MG TABLET PO (08:52)
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
[2023-10-13 22:00] VITALS: BP 120/69; PULSE 82; RESP 18; TEMP 36.9; O2SAT 98
[2023-10-13 22:07] LABS: Glucose, Whole Blood 124 mg/dL (60-115)
[2023-10-13 22:27] VITALS: BP 120/69
[2023-10-13] MEDS: Prazosin HCL 1 MG CAPSULE 2 MG PO (22:27)
[2023-10-13 22:28] VITALS: BP 120/69
[2023-10-13] MEDS: Prazosin HCL 5 MG CAPSULE PO (22:28)
[2023-10-13] MEDS: OLANZapine 10 MG TABLET 20 MG PO (22:28)
[2023-10-13] MEDS: traZODone HCL 100 MG TABLET PO (22:29)
[2023-10-14 07:38] VITALS: BP 122/67; PULSE 73; RESP 16; TEMP 36.5; O2SAT 97
[2023-10-14 08:56] LABS: Glucose, Whole Blood 171 mg/dL (60-115)
[2023-10-14 08:59] VITALS: BP 122/67
[2023-10-14] MEDS: metFORMIN HCl 500 MG TABLET PO (08:59)
[2023-10-14] MEDS: Losartan Potassium 25 MG TABLET PO (08:59)
[2023-10-14] MEDS: Atorvastatin Calcium 20 MG TABLET PO (08:59)
[2023-10-14] MEDS: FLUoxetine HCl 20 MG CAPSULE 60 MG PO (08:59)
[2023-10-14] MEDS: OXcarbazepine 300 MG TABLET PO (09:00)
[2023-10-14] MEDS: Aspirin Enteric Coated 81 MG TABLET.DR PO (09:00)
[2023-10-14] MEDS: Famotidine 20 MG TABLET 40 MG PO (09:00)
[2023-10-14] MEDS: SITagliptin Phosphate 50 MG TABLET PO (09:00)
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
== END 2023-10-14 11:57 | disposition home or self-care (01) | DRG 751 ==
LOC: HO.ED 23:48 → HO.PADLT16 10-01 12:53
PROVIDERS: Emergency Medicine; Registered Nurse Emergency; Admitting Provider Registered Nurse; Emergency Provider Internal Medicine; Responsible Provider Registered Nurse; Visit Provider Psychiatry & Neurology Psychiatry
DX: F33.1 Major depressive disorder, recurrent, moderate (principal); R45.851 Suicidal ideations; F17.210 Nicotine dependence, cigarettes, uncomplicated; Z71.6 Tobacco abuse counseling; F43.10 Post-traumatic stress disorder, unspecified; F14.10 Cocaine abuse, uncomplicated; Z20.822 Contact with and (suspected) exposure to COVID-19; Z79.82 Long term (current) use of aspirin; Z79.84 Long term (current) use of oral hypoglycemic drugs; Z79.899 Other long term (current) drug therapy
CPT/HCPCS: 36415; 80048; 80053; 80061; 80307; 81001; 82565; 82947; 85025; 87635; 93005; 99285; S9485

== ENCOUNTER → 2023-10-01 07:53 | Outpatient (BNV) | payer MEDICAID, SELFPAY | PROVIDERS: Emergency Provider Internal Medicine; Visit Provider Internal Medicine Cardiovascular Disease | DX: I45.81 Long QT syndrome (principal) | CPT/HCPCS: 93010 ==

== ENCOUNTER → 2023-10-01 12:46 | Outpatient (BNV) | payer OTHER, SELFPAY | PROVIDERS: Admitting Provider Registered Nurse; Emergency Provider Internal Medicine; Responsible Provider Registered Nurse; Visit Provider Registered Nurse | DX: F33.2 Major depressive disorder, recurrent severe without psychotic features (principal); F14.10 Cocaine abuse, uncomplicated; F43.11 Post-traumatic stress disorder, acute | CPT/HCPCS: 99231; 99232; 99233 ==

== ENCOUNTER 2023-10-15 20:56 | Emergency (ER) | payer OTHER, SELFPAY ==
[2023-10-15 21:03] VITALS: BP 152/89; PULSE 82; O2SAT 99; BMI 31.2
[2023-10-15 21:09] VITALS: BP 159/96; PULSE 96; RESP 17; TEMP 36.4; O2SAT 98
[2023-10-15 21:36] LABS: Appearance Urine Cloudy; Color Urine Yellow; Glucose Urine UA Negative (Negative); Leukocyte Esterase Urine Negative (Negative); Nitrite Urine Negative (Negative); PH 5.5 (5.0-9.0); Specific Gravity - Urine >= 1.030 (1.005-1.025); UMIC TRIGGER UACC YES; Urine Blood Trace (Negative); Urine Ketones 15 mg/dL (Negative); Urine Protein 30 (1+) mg/dL (Neg-Trace)
[2023-10-15 21:47] LABS: Bacteria Urine None Seen (None Seen); RBC Urine 0-2 /HPF (0-2); Squamous Epithelial Cell Urine 0-2 /HPF (0-2); WBC Urine 0-5 /HPF (0-5)
[2023-10-15 22:26] LABS: MANUAL DIFF FLAG NO
--- NOTE | 2023-10-15 22:26 | ED_ITS ---
HPI - Psych General Chief Complaint: Psychiatric Symptoms Stated Complaint: SI Time Seen by Provider: 10/15/23 20:57 Source: patient Mode of arrival: EMS Limitations: no limitations History of Present Illness HPI Narrative: Patient is a 38-year-old male who presents emergency department for evaluation via EMS. He was discharged from inpatient psychiatric care at this hospital yesterday. He reports that he went to [facility] in [place]. He reports that the staff from inpatient psych floor felt that he may have been leaving too early, and had tried to advise him against it but he wanted to leave. He states that he was having hallucinations today where he was demons because he thought they had killed his son. He ultimately went to his friend's house after asking for a gun because he wanted to kill himself. He endorses SI at this time. He is denying homicidal ideations. He denies any recreational drug or alcohol usage. EMS reported found patient at a park, where he called EMS on his own Related Data Home Medications ?Medication ?Instructions ?Recorded ?Confirmed quetiapine 100 mg tablet 100 mg PO DAILY 10/15/23 10/15/23 sitagliptin phosphate 50 mg tablet 25 mg PO DAILY 10/15/23 10/15/23 (Merna) Previous Rx's ?Medication ?Instructions ?Recorded aspirin 81 mg tablet,delayed 81 mg PO DAILY #30 tabs 10/14/23 release atorvastatin 20 mg tablet 20 mg PO DAILY #30 tabs 10/14/23 cholecalciferol (vitamin D3) 25 50 mcg (2 x 25 mcg (1,000 unit)) 10/14/23 mcg (1,000 unit) tablet PO DAILY #30 tabs fluoxetine 60 mg tablet 60 mg PO DAILY #30 tabs 10/14/23 metformin 500 mg tablet 500 mg PO BIDWM #60 tabs 10/14/23 olanzapine 20 mg tablet 20 mg PO BEDTIME #30 tabs 10/14/23 trazodone 100 mg tablet 100 mg PO BEDTIME #30 tabs 10/14/23 Allergies Allergy/AdvReac Type Severity Reaction Status Date / Time No Known Allergies Allergy Verified 10/15/23 21:06 Review of Systems 2 Review of Systems: Yes all other systems are reviewed and are negative PMFSH Past Medical History Attestation statement: The following information was validated with the patient. Source: old records reviewed Social History Social History Household Members Other:: ex Housing: Apartment Do you presently have visiting nurse or other home services: No Patient Tobacco Use Status: Current everyday Tobacco user Tobacco use type: Cigarette Cigarette Packs Per Day: 0.25 Cigarettes Per Day: 5.0 Smoked in Last 30 Days: No Second Hand Smoke Exposure: No Substance Use Type: Crack/Cocaine and Marijuana Advance Directives: No Advance Directives Information Provided: No Do you have a plan to hurt others: No Plan service: No Sexual orientation: Straight/Heterosexual Physical Exam 2 Vital Signs: Vital Signs: Last Vital Signs Temp 97.9 F 10/16/23 01:02 Pulse 76 10/16/23 01:02 Resp 16 10/16/23 01:02 BP 138/75 10/16/23 01:02 Pulse Ox 96 10/16/23 01:02 O2 Del Method Room Air 10/16/23 01:02 BMI result Body Mass Index 31.2 Appearance: Alert.?Oriented to person, place and time. No acute distress.?Normal affect. Eyes: Pupils equal, round and reactive to light.? ENT: Pharynx normal.?? Neck: Normal inspection.? Neck supple.?? CVS: Heart sounds normal. Normal heart rate and rhythm.? Pulses normal.?? Respiratory: No respiratory distress.? Lung sounds clear to auscultation bilaterally?? Abdomen: Soft and non-tender. Normoactive bowel sounds. Skin: Skin warm and dry.? Normal skin color.? Extremities: No lower extremity edema.? Neuro: Moves all extremities spontaneously. Sensation intact bilaterally. CN II- XII intact. No focal neuro deficits. Ambulates with normal steady gait. Medications Administered Generic Name Dose Route Start Last Admin Trade Name Freq PRN Reason Stop Dose Admin Olanzapine 20 mg 10/15/23 22:45 10/15/23 22:43 Olanzapine 10 Mg Tablet PO 20 mg BEDTIME ISAÍAS Administration Trazodone HCl 100 mg 10/15/23 22:45 10/15/23 22:43 Trazodone Hcl 100 Mg Tablet PO 100 mg BEDTIME ISAÍAS Administration Medical Decision Making Medical Decision Making [facility] Narrative: Patient is a 38-year-old male past medical history of depression, PTSD, substance use disorder who presents emergency department for evaluation suicidal ideations and visual hallucinations as per HPI. At the time my evaluation he is calm and cooperative. Of note he was discharged yesterday from inpatient psych after admission from 10/02/2023-10/14/2023 discharged to [facility], at that time was denying SI/HI/hallucinations. He has no physical complaints and his physical examination is benign at this time. Plan to obtain basic labs for medical clearance and refer to care team for further evaluation planning/determination as to whether further inpatient psych services are required at this time. Differential Diagnosis Differential Diagnoses: The differential diagnosis associated with the presentation includes Admission/Observation Consideration of admission/observation: Escalation of care including admission/observation considered (See narrative above) Placed in physician observation 23:55 - no respiratory distress, speaking clear full sentences, calm and cooperative. Consult Healthcare Provider Management of the patient was discussed with: Behavioral Health Provider (Care team) Lab Data MDM Lab Attestation statement: I reviewed the patient's lab results. CBC reveals leukocytosis which may be reactive in nature, currently asymptomatic for any infectious pathology, normocytic anemia, no electrolyte derangement, no IVIS, transaminases within normal range, normal hydroxybutyrate. Urinalysis without evidence of infection. Toxicology positive for cocaine and marijuana. Alcohol level below detectable limits 10/15/23 22:16 10/15/23 22:17 Labs: Lab Results 10/15/23 10/15/23 10/15/23 Range/Units 21:16 22:16 22:17 WBC 16.4 H (4.8-10.8) X10*3/uL RBC 4.51 L (4.60-5.80) X10*6/uL Hgb 13.1 L (14.0-18.0) g/dl Hct 39.7 L (42.0-52.0) % MCV 88.0 (80.0-98.0) fL MCH 29.0 (27.0-33.0) pg MCHC 33.0 (31.0-36.0) g/dl RDW 14.4 (11.0-16.0) % Plt Count 339 (160-400) X10*3/uL MPV 10.1 (9.4-12.4) fL Immature Gran % (Auto) 0.4 (0.0-0.4) % Neut % (Auto) 82.0 H (45-73) % Lymph % (Auto) 11.8 L (20-40) % [place] % (Auto) 5.6 (2-11) % Eos % (Auto) 0.0 (0-4) % Baso % (Auto) 0.2 (0-2) % Lymph # (Auto) 1.9 (1.2-4.9) X10*3/uL [place] # (Auto) 0.9 (0.1-1.2) X10*3/uL Eos # (Auto) 0.0 (0.0-0.4) X10*3/uL Baso # (Auto) 0.0 (0.0-0.2) X10*3/uL Abs Immat Gran (auto) 0.07 H (0.00-0.03) X10*3/uL Absolute Neuts (auto) 13.5 H (2.0-8.3) x10*3/uL Absolute Nucleated RBC 0.000 (0.0-0.012) X10*3/uL Nucleated RBC % (auto) 0.0 (0.0-0.2) /100WBC Sodium 143 (135-145) mmol/L Potassium 3.7 (3.3-5.1) mmol/L Chloride 107 (96-108) mmol/L Carbon Dioxide 22 (22-29) mmol/L Anion Gap 18 (12-20) BUN 13 (9-16) mg/dL Creatinine 0.91 (0.5-1.4) mg/dL Estim Creat Clear Calc 136.1 Estimated GFR > 60 POC Glucose (60-115) mg/dL Random Glucose 111 (60-115) mg/dL Calcium 9.7 (8.4-10.2) mg/dL Total Bilirubin 0.7 (0.0-1.0) mg/dL Direct Bilirubin 0.2 (0.0-0.5) mg/dL AST 30 (5-37) U/L ALT 23 (0-40) U/L Alkaline Phosphatase 77 (39-117) U/L Total Protein 7.7 (6.5-8.0) g/dL Albumin 4.2 (3.5-5.0) g/dL Beta-Hydroxybutyrate 0.16 (0.02-0.27) mmol/L Urine Color Yellow Urine Appearance Cloudy Urine pH 5.5 (5.0-9.0) Ur Specific [place] >= 1.030 H (1.005-1.025) Urine Protein 30 (1+) H (Neg-Trace) mg/dL Urine Glucose (UA) Negative (Negative) mg/dL Urine Ketones 15 (Negative) mg/dL Urine Blood Trace H (Negative) Urine Nitrite Negative (Negative) Ur Leukocyte Esterase Negative (Negative) Urine RBC 0-2 (0-2) /HPF Urine WBC 0-5 (0-5) /HPF Ur Squamous Epith Cells 0-2 (0-2) /HPF Urine Bacteria None Seen (None Seen) Hyaline Casts 3-5 (0-2) /LPF Salicylates < 5.0 L (15-30) mg/dL Urine Opiates Screen Not Detected (Not Detect) Ur Buprenorphine Scrn Not Detected (Not Detect) ng/mL Ur Oxycodone Screen Not Detected (Not Detect) ng/mL Urine Methadone Screen Not Detected (Not Detect) ng/mL Urine Fentanyl Screen Not Detected (Not Detect) Acetaminophen < 3 (<30) mcg/mL Ur Barbiturates Screen Not Detected (Not Detect) Ur Phencyclidine Scrn Not Detected (Not Detect) Ur Amphetamines Screen Not Detected (Not Detect) U Benzodiazepines Scrn Not Detected (Not Detect) Urine Cocaine Screen POSITIVE H (Not Detect) U Marijuana (THC) Screen POSITIVE H (Not Detect) Ethyl Alcohol < 10 mg/dL 10/16/23 Range/Units 01:02 WBC (4.8-10.8) X10*3/uL RBC (4.60-5.80) X10*6/uL Hgb (14.0-18.0) g/dl Hct (42.0-52.0) % MCV (80.0-98.0) fL MCH (27.0-33.0) pg MCHC (31.0-36.0) g/dl RDW (11.0-16.0) % Plt Count (160-400) X10*3/uL MPV (9.4-12.4) fL Immature Gran % (Auto) (0.0-0.4) % Neut % (Auto) (45-73) % Lymph % (Auto) (20-40) % [place] % (Auto) (2-11) % Eos % (Auto) (0-4) % Baso % (Auto) (0-2) % Lymph # (Auto) (1.2-4.9) X10*3/uL [place] # (Auto) (0.1-1.2) X10*3/uL Eos # (Auto) (0.0-0.4) X10*3/uL Baso # (Auto) (0.0-0.2) X10*3/uL Abs Immat Gran (auto) (0.00-0.03) X10*3/uL Absolute Neuts (auto) (2.0-8.3) x10*3/uL Absolute Nucleated RBC (0.0-0.012) X10*3/uL Nucleated RBC % (auto) (0.0-0.2) /100WBC Sodium (135-145) mmol/L Potassium (3.3-5.1) mmol/L Chloride (96-108) mmol/L Carbon Dioxide (22-29) mmol/L Anion Gap (12-20) BUN (9-16) mg/dL Creatinine (0.5-1.4) mg/dL Estim Creat Clear Calc Estimated GFR POC Glucose 97 (60-115) mg/dL Random Glucose (60-115) mg/dL Calcium (8.4-10.2) mg/dL Total Bilirubin (0.0-1.0) mg/dL Direct Bilirubin (0.0-0.5) mg/dL AST (5-37) U/L ALT (0-40) U/L Alkaline Phosphatase (39-117) U/L Total Protein (6.5-8.0) g/dL Albumin (3.5-5.0) g/dL Beta-Hydroxybutyrate (0.02-0.27) mmol/L Urine Color Urine Appearance Urine pH (5.0-9.0) Ur Specific [place] (1.005-1.025) Urine Protein (Neg-Trace) mg/dL Urine Glucose (UA) (Negative) mg/dL Urine Ketones (Negative) mg/dL Urine Blood (Negative) Urine Nitrite (Negative) Ur Leukocyte Esterase (Negative) Urine RBC (0-2) /HPF Urine WBC (0-5) /HPF Ur Squamous Epith Cells (0-2) /HPF Urine Bacteria (None Seen) Hyaline Casts (0-2) /LPF Salicylates (15-30) mg/dL Urine Opiates Screen (Not Detect) Ur Buprenorphine Scrn (Not Detect) ng/mL Ur Oxycodone Screen (Not Detect) ng/mL Urine Methadone Screen (Not Detect) ng/mL Urine Fentanyl Screen (Not Detect) Acetaminophen (<30) mcg/mL Ur Barbiturates Screen (Not Detect) Ur Phencyclidine Scrn (Not Detect) Ur Amphetamines Screen (Not Detect) U Benzodiazepines Scrn (Not Detect) Urine Cocaine Screen (Not Detect) U Marijuana (THC) Screen (Not Detect) Ethyl Alcohol mg/dL Discharge Plan Discharge Clinical Impression: Suicidal ideation, Depression, Hallucinations, Cocaine use disorder Patient Disposition: Still a Patient Prescriptions: No Action atorvastatin 20 mg Tablet 20 mg PO DAILY Qty: 30 0RF aspirin 81 mg Tablet,Delayed Release (Dr/Ec) 81 mg PO DAILY Qty: 30 0RF fluoxetine 60 mg tablet 60 mg PO DAILY Qty: 30 0RF olanzapine 20 mg tablet 20 mg PO BEDTIME Qty: 30 0RF trazodone 100 mg Tablet 100 mg PO BEDTIME Qty: 30 0RF metformin 500 mg Tablet 500 mg PO BIDWM Qty: 60 0RF cholecalciferol (vitamin D3) 25 mcg (1,000 unit) Tablet 50 mcg PO DAILY Qty: 30 0RF Januvia 50 mg tablet 25 mg PO DAILY quetiapine 100 mg Tablet 100 mg PO DAILY Interventions: [place]-Suicide Risk Severity Scale Last Done: 10/15/23 22:11 Print Language: Romanian
[2023-10-15 22:27] LABS: Basophils Percent Auto 0.2 % (0-2); Hematocrit 39.7 % (42.0-52.0); Hemoglobin 13.1 g/dl (14.0-18.0); Imm Gran Abs Auto 0.07 X10*3/uL (0.00-0.03); Imm Gran Pct Auto 0.4 % (0.0-0.4); Lymphocytes Absolute Auto 1.9 X10*3/uL (1.2-4.9); Lymphocytes Percent Auto 11.8 % (20-40); Mean Platelet Volume 10.1 fL (9.4-12.4); Monocytes Absolute Auto 0.9 X10*3/uL (0.1-1.2); Monocytes Percent Auto 5.6 % (2-11); Neutrophils Absolute Auto 13.5 x10*3/uL (2.0-8.3); Platelet Count 339 X10*3/uL (160-400); Red Blood Count 4.51 X10*6/uL (4.60-5.80); Red Cell Distribution Width 14.4 % (11.0-16.0); White Blood Count 16.4 X10*3/uL (4.8-10.8)
[2023-10-15 22:30] LABS: Amphetamine Screen Urine Not Detected (Not Detect); Barbiturates, Urine Not Detected (Not Detect); Benzodiazepines Screen Urine Not Detected (Not Detect); Buprenorphine Scr Not Detected (Not Detect); Cannabinoid Screen Urine POSITIVE (Not Detect); Cocaine Screen Urine POSITIVE (Not Detect); Fentanyl, urine Not Detected (Not Detect); Methadone Screen, Urine Not Detected (Not Detect); Opiate Screen Urine Not Detected (Not Detect); Oxycodone Screen Urine Not Detected (Not Detect); Phencyclidine Screen Urine Not Detected (Not Detect)
[2023-10-15 22:43] LABS: Acetaminophen LAB < 3 mcg/mL (<30); Salicylate < 5.0 mg/dL (15-30)
[2023-10-15 22:43] LABS: Alanine Aminotransferase 23 U/L (0-40); Albumin Level 4.2 g/dL (3.5-5.0); Alkaline Phosphatase 77 U/L (39-117); Anion Gap 18 (12-20); Aspartate Amino Transferase 30 U/L (5-37); Beta-Hydroxybutyrate 0.16 mmol/L (0.02-0.27); Bilirubin Direct 0.2 mg/dL (0.0-0.5); Bilirubin Total 0.7 mg/dL (0.0-1.0); Blood Urea Nitrogen 13 mg/dL (9-16); Calcium 9.7 mg/dL (8.4-10.2); Carbon Dioxide 22 mmol/L (22-29); Chloride 107 mmol/L (96-108); Creatinine Clr Calc Pharmacy 136.1; Estimated Glomerular Filt Rate > 60; Ethanol < 10 mg/dL; Glucose Random 111 mg/dL (60-115); Potassium 3.7 mmol/L (3.3-5.1); Sodium 143 mmol/L (135-145); Total Protein 7.7 g/dL (6.5-8.0)
[2023-10-15] MEDS: OLANZapine 10 MG TABLET 20 MG PO (22:43)
[2023-10-15] MEDS: traZODone HCL 100 MG TABLET PO (22:43)
--- NOTE | 2023-10-15 23:59 | PC.NURSE ---
care team at bedside
[2023-10-16 01:02] VITALS: BP 138/75; PULSE 76; RESP 16; TEMP 36.6; O2SAT 96
[2023-10-16 01:06] LABS: Glucose, Whole Blood 97 mg/dL (60-115)
[2023-10-16] MEDS: metFORMIN HCl 500 MG TABLET PO ×2 (08:31→16:59)
[2023-10-16] MEDS: Cholecalciferol (Vitamin D3) 25 MCG TABLET 50 MCG PO (09:03)
[2023-10-16] MEDS: Aspirin Enteric Coated 81 MG TABLET.DR PO (09:03)
[2023-10-16] MEDS: QUEtiapine Fumarate 100 MG TABLET PO (09:03)
[2023-10-16] MEDS: Atorvastatin Calcium 20 MG TABLET PO (09:03)
[2023-10-16] MEDS: FLUoxetine HCl 20 MG CAPSULE 60 MG PO (09:03)
[2023-10-16 09:12] VITALS: BP 126/75; PULSE 98; RESP 16; TEMP 36.9; O2SAT 98
[2023-10-16] MEDS: SITagliptin Phosphate 25 MG TABLET PO (09:16)
--- NOTE | 2023-10-16 09:47 | PC.NURSE ---
Assumed care of patient at 0645. Patient is observed resting in his bed. No signs of distress observed. Breathing is even and unlabored. Will continue plan of care.
--- NOTE | 2023-10-16 14:29 | MHC.CARE ---
Patient has been accepted to [facility] for today 10/16/23. The address is [address] [place] [id number] [address] doc is Dr. Lane. ETA is [phone].
[2023-10-16 14:45] LABS: MANUAL DIFF FLAG NO
[2023-10-16 14:49] LABS: Basophils Absolute Auto 0.1 X10*3/uL (0.0-0.2); Basophils Percent Auto 0.6 % (0-2); Eosinophils Absolute Auto 0.1 X10*3/uL (0.0-0.4); Eosinophils Percent Auto 1.2 % (0-4); Hematocrit 37.9 % (42.0-52.0); Hemoglobin 12.7 g/dl (14.0-18.0); Imm Gran Abs Auto 0.04 X10*3/uL (0.00-0.03); Imm Gran Pct Auto 0.3 % (0.0-0.4); Lymphocytes Absolute Auto 3.6 X10*3/uL (1.2-4.9); Lymphocytes Percent Auto 30.7 % (20-40); Mean Corpuscular HGB Conc 33.5 g/dl (31.0-36.0); Mean Corpuscular Hemoglobin 29.6 pg (27.0-33.0); Mean Corpuscular Volume 88.3 fL (80.0-98.0); Mean Platelet Volume 9.9 fL (9.4-12.4); Monocytes Absolute Auto 0.9 X10*3/uL (0.1-1.2); Monocytes Percent Auto 7.7 % (2-11); Neutrophils Absolute Auto 6.9 x10*3/uL (2.0-8.3); Neutrophils Percent Auto 59.5 % (45-73); Platelet Count 337 X10*3/uL (160-400); Red Blood Count 4.29 X10*6/uL (4.60-5.80); Red Cell Distribution Width 14.4 % (11.0-16.0); White Blood Count 11.6 X10*3/uL (4.8-10.8)
[2023-10-16 15:05] LABS: Alanine Aminotransferase 20 U/L (0-40); Albumin Level 3.5 g/dL (3.5-5.0); Alkaline Phosphatase 73 U/L (39-117); Anion Gap 15 (12-20); Aspartate Amino Transferase 29 U/L (5-37); Bilirubin Total 0.6 mg/dL (0.0-1.0); Blood Urea Nitrogen 12 mg/dL (9-16); Calcium 8.9 mg/dL (8.4-10.2); Carbon Dioxide 24 mmol/L (22-29); Chloride 107 mmol/L (96-108); Creatinine Clr Calc Pharmacy 156.7; Estimated Glomerular Filt Rate > 60; Glucose Random 105 mg/dL (60-115); Potassium 3.5 mmol/L (3.3-5.1); Sodium 142 mmol/L (135-145); Total Protein 6.5 g/dL (6.5-8.0)
[2023-10-16 18:36] VITALS: BP 126/75; PULSE 98; RESP 16; TEMP 36.9; O2SAT 98
== END 2023-10-16 18:40 | disposition still patient (30) ==
PROVIDERS: Emergency Medicine; Emergency Provider Emergency Medicine
DX: F33.1 Major depressive disorder, recurrent, moderate (principal); R45.851 Suicidal ideations; F14.10 Cocaine abuse, uncomplicated; Z79.899 Other long term (current) drug therapy; Z51.81 Encounter for therapeutic drug level monitoring
CPT/HCPCS: 36415; 80053; 80143; 80179; 80307; 81001; 82010; 82248; 82947; 85025; 99285; S9485

== ENCOUNTER 2023-11-20 22:49 | Inpatient (IN) | payer MEDICAID, OTHER, SELFPAY ==
[2023-11-20 23:00] VITALS: BP 142/90; PULSE 98; RESP 16; TEMP 37.3; O2SAT 97; BMI 31.2
[2023-11-20 23:01] VITALS: RESP 16
--- NOTE | 2023-11-20 23:25 | ED_ITS ---
HPI - Psych General Chief Complaint: Psychiatric Symptoms Stated Complaint: SI Time Seen by Provider: 11/20/23 23:03 Source: patient Mode of arrival: ambulatory Limitations: no limitations History of Present Illness ED Provider: irina PULIDO Narrative: Patient history of PTSD, depression, schizoaffective disorder history of cocaine use comes here for increased depression with suicidal thoughts plan to jump off the bridge. Patient is not taking his medication as he is supposed to hearing voices telling him to kill himself increased life stresses and poor sleep been admitted to the hospital with similar reasons in the past Related Data Home Medications ?Medication ?Instructions ?Recorded ?Confirmed atorvastatin 20 mg tablet 20 mg PO QAM 11/20/23 11/20/23 famotidine 40 mg tablet 40 mg PO QAM 11/20/23 11/20/23 losartan 25 mg tablet 25 mg PO QAM 11/20/23 11/20/23 metformin 500 mg tablet 500 mg PO BID 11/20/23 11/20/23 oxcarbazepine 300 mg tablet 300 mg PO BID 11/20/23 11/20/23 sitagliptin phosphate 50 mg tablet 50 mg PO DAILY 11/20/23 11/20/23 (Januvia) Allergies Allergy/AdvReac Type Severity Reaction Status Date / Time No Known Allergies Allergy Verified 11/20/23 23:01 Review of Systems 2 Review of Systems: Yes all other systems are reviewed and are negative [facility] Social History Social History Household Members Other:: ex Housing: Apartment Do you presently have visiting nurse or other home services: No Patient Tobacco Use Status: Current everyday Tobacco user Tobacco use type: Cigarette Cigarette Packs Per Day: 0.25 Cigarettes Per Day: 5.0 Smoked in Last 30 Days: Yes Second Hand Smoke Exposure: No Use of substances other than those prescribed or required for medical reasons: Yes Substance Use Type: Crack/Cocaine and Marijuana Substance Use Frequency: Weekly Last Used Substance: Days (ago) Any prior treatment program specific to substance use: No Advance Directives: No Advance Directives Information Provided: Yes service: No Sexual orientation: Straight/Heterosexual Physical Exam 2 Vital Signs: Vital Signs: Last Vital Signs Temp 99.2 F 11/20/23 23:00 Pulse 98 11/20/23 23:00 Resp 16 11/20/23 23:01 BP 140/92 H 11/21/23 00:12 Pulse Ox 97 11/20/23 23:00 O2 Del Method Room Air 11/20/23 23:00 BMI result Body Mass Index 31.2 Appearance: Alert. Oriented X3. No acute distress. Eyes: PERRLA, No Nystagmus ENT: Pharynx normal. Oral Mucosa moist Neck: Normal inspection. Neck supple. CVS: Normal heart rate and rhythm. Pulses normal. Respiratory: No respiratory distress. Equal air entry bilateral, no wheezing/rales/rhonchi Abdomen: Soft and nontender. Bowel sounds are present, no mass palpable, no CVA tenderness Skin: Skin warm and dry. Normal skin color. Normal skin turgor. Extremities: No lower extremity edema. No calf tenderness psych: Feel depressed and suicidal no current plan at this time Neuro: Oriented X 3. No motor deficit. No sensory deficit.No cerebellar signs , cranial nerves II-XII intact Medications Administered Generic Name Dose Route Start Last Admin Trade Name Freq PRN Reason Stop Dose Admin Atorvastatin Calcium 20 mg 11/20/23 23:30 11/21/23 00:11 Atorvastatin Calcium 20 Mg Tablet PO 20 mg DAILY ISAÍAS Administration Famotidine 40 mg 11/20/23 23:30 11/21/23 00:12 Famotidine 20 Mg Tablet PO 40 mg DAILY ISAÍAS Administration Losartan Potassium 25 mg 11/20/23 23:30 11/21/23 00:12 Losartan Potassium 25 Mg Tablet PO 25 mg DAILY ISAÍAS Administration Protocol Metformin HCl 500 mg 11/20/23 23:30 11/21/23 00:12 Metformin Hcl 500 Mg Tablet PO 500 mg BID ISAÍAS Administration Oxcarbazepine 300 mg 11/20/23 23:30 11/21/23 00:11 Oxcarbazepine 300 Mg Tablet PO 300 mg BID ISAÍAS Administration Discontinued Medications Generic Name Dose Route Start Last Admin Trade Name Freq PRN Reason Stop Dose Admin Lorazepam 2 mg 11/20/23 23:23 11/21/23 00:12 Lorazepam 1 Mg Tablet PO 11/20/23 23:24 2 mg ONCE ONE Administration Medical Decision Making Medical Decision Making [facility] Narrative: Patient with significant depression with suicidal ideation with history of cocaine abuse previous psych admission will get psych consultation Differential Diagnosis Differential Diagnoses: The differential diagnosis associated with the presentation includes Lab Data [facility] Lab Attestation statement: I reviewed the patient's lab results. 11/20/23 23:26 11/20/23 23:26 Labs: Lab Results 11/20/23 11/20/23 Range/Units 23:21 23:26 WBC 12.5 H (4.8-10.8) X10*3/uL RBC 4.43 L (4.60-5.80) X10*6/uL Hgb 13.2 L (14.0-18.0) g/dl Hct 38.7 L (42.0-52.0) % MCV 87.4 (80.0-98.0) fL MCH 29.8 (27.0-33.0) pg MCHC 34.1 (31.0-36.0) g/dl RDW 15.0 (11.0-16.0) % Plt Count 315 (160-400) X10*3/uL MPV 10.2 (9.4-12.4) fL Immature Gran % (Auto) 0.3 (0.0-0.4) % Neut % (Auto) 79.6 H (45-73) % Lymph % (Auto) 14.8 L (20-40) % [place] % (Auto) 5.0 (2-11) % Eos % (Auto) 0.0 (0-4) % Baso % (Auto) 0.3 (0-2) % Lymph # (Auto) 1.9 (1.2-4.9) X10*3/uL [place] # (Auto) 0.6 (0.1-1.2) X10*3/uL Eos # (Auto) 0.0 (0.0-0.4) X10*3/uL Baso # (Auto) 0.0 (0.0-0.2) X10*3/uL Abs Immat Gran (auto) 0.04 H (0.00-0.03) X10*3/uL Absolute Neuts (auto) 10.0 H (2.0-8.3) x10*3/uL Absolute Nucleated RBC 0.000 (0.0-0.012) X10*3/uL Nucleated RBC % (auto) 0.0 (0.0-0.2) /100WBC Sodium 144 (135-145) mmol/L Potassium 4.0 (3.3-5.1) mmol/L Chloride 106 (96-108) mmol/L Carbon Dioxide 26 (22-29) mmol/L Anion Gap 16 (12-20) BUN 16 (9-16) mg/dL Creatinine 1.11 (0.5-1.4) mg/dL Estim Creat Clear Calc 121.3 Estimated GFR > 60 Random Glucose 100 (60-115) mg/dL Calcium 9.7 D (8.4-10.2) mg/dL Total Bilirubin 0.6 (0.0-1.0) mg/dL AST 40 H (5-37) U/L ALT 45 H (0-40) U/L Alkaline Phosphatase 91 (39-117) U/L Total Protein 8.4 H (6.5-8.0) g/dL Albumin 4.5 (3.5-5.0) g/dL Urine Color Yellow Urine Appearance Clear Urine pH 5.5 (5.0-9.0) Ur Specific [place] >= 1.030 H (1.005-1.025) Urine Protein 30 (1+) H (Neg-Trace) mg/dL Urine Glucose (UA) Negative (Negative) mg/dL Urine Ketones Trace (Negative) mg/dL Urine Blood Negative (Negative) Urine Nitrite Negative (Negative) Ur Leukocyte Esterase Negative (Negative) Urine RBC 0-2 (0-2) /HPF Urine WBC 0-5 (0-5) /HPF Ur Squamous Epith Cells 0-2 (0-2) /HPF Urine Bacteria None Seen (None Seen) Hyaline Casts 0-2 (0-2) /LPF Urine Opiates Screen Not Detected (Not Detect) Ur Buprenorphine Scrn Not Detected (Not Detect) ng/mL Ur Oxycodone Screen Not Detected (Not Detect) ng/mL Urine Methadone Screen Not Detected (Not Detect) ng/mL Urine Fentanyl Screen Not Detected (Not Detect) Ur Barbiturates Screen Not Detected (Not Detect) Ur Phencyclidine Scrn Not Detected (Not Detect) Ur Amphetamines Screen Not Detected (Not Detect) U Benzodiazepines Scrn Not Detected (Not Detect) Urine Cocaine Screen POSITIVE H (Not Detect) U Marijuana (THC) Screen Not Detected (Not Detect) Ethyl Alcohol < 10 mg/dL Discharge Plan Discharge Clinical Impression: MDD (major depressive disorder), recurrent episode, Suicidal ideation, PTSD (post-traumatic stress disorder), Cocaine use disorder, Bipolar disorder Patient Disposition: Still a Patient Prescriptions: No Action metformin 500 mg tablet 500 mg PO BID atorvastatin 20 mg tablet 20 mg PO QAM famotidine 40 mg tablet 40 mg PO QAM oxcarbazepine 300 mg tablet 300 mg PO BID losartan 25 mg tablet 25 mg PO QAM Januvia 50 mg tablet 50 mg PO DAILY Interventions: [place]-Suicide Risk Severity Scale Last Done: 11/20/23 23:02 Print Language: Kinyarwanda
[2023-11-20 23:33] LABS: Basophils Percent Auto 0.3 % (0-2); Hematocrit 38.7 % (42.0-52.0); Hemoglobin 13.2 g/dl (14.0-18.0); Imm Gran Abs Auto 0.04 X10*3/uL (0.00-0.03); Imm Gran Pct Auto 0.3 % (0.0-0.4); Lymphocytes Absolute Auto 1.9 X10*3/uL (1.2-4.9); Lymphocytes Percent Auto 14.8 % (20-40); MANUAL DIFF FLAG NO; Mean Corpuscular HGB Conc 34.1 g/dl (31.0-36.0); Mean Corpuscular Hemoglobin 29.8 pg (27.0-33.0); Mean Corpuscular Volume 87.4 fL (80.0-98.0); Mean Platelet Volume 10.2 fL (9.4-12.4); Monocytes Absolute Auto 0.6 X10*3/uL (0.1-1.2); Neutrophils Percent Auto 79.6 % (45-73); Platelet Count 315 X10*3/uL (160-400); Red Blood Count 4.43 X10*6/uL (4.60-5.80); White Blood Count 12.5 X10*3/uL (4.8-10.8)
[2023-11-20 23:35] LABS: Appearance Urine Clear; Color Urine Yellow; Glucose Urine UA Negative (Negative); Leukocyte Esterase Urine Negative (Negative); Nitrite Urine Negative (Negative); PH 5.5 (5.0-9.0); Specific Gravity - Urine >= 1.030 (1.005-1.025); UMIC TRIGGER UA YES; Urine Blood Negative (Negative); Urine Ketones Trace mg/dL (Negative); Urine Protein 30 (1+) mg/dL (Neg-Trace)
[2023-11-20 23:41] LABS: Bacteria Urine None Seen (None Seen); Hyaline Casts Urine 0-2 /LPF (0-2); RBC Urine 0-2 /HPF (0-2); Squamous Epithelial Cell Urine 0-2 /HPF (0-2); WBC Urine 0-5 /HPF (0-5)
[2023-11-20 23:49] LABS: Amphetamine Screen Urine Not Detected (Not Detect); Barbiturates, Urine Not Detected (Not Detect); Benzodiazepines Screen Urine Not Detected (Not Detect); Buprenorphine Scr Not Detected (Not Detect); Cannabinoid Screen Urine Not Detected (Not Detect); Cocaine Screen Urine POSITIVE (Not Detect); Fentanyl, urine Not Detected (Not Detect); Methadone Screen, Urine Not Detected (Not Detect); Opiate Screen Urine Not Detected (Not Detect); Oxycodone Screen Urine Not Detected (Not Detect); Phencyclidine Screen Urine Not Detected (Not Detect)
[2023-11-20 23:52] LABS: Ethanol < 10 mg/dL
[2023-11-20 23:53] LABS: Alanine Aminotransferase 45 U/L (0-40); Albumin Level 4.5 g/dL (3.5-5.0); Alkaline Phosphatase 91 U/L (39-117); Anion Gap 16 (12-20); Aspartate Amino Transferase 40 U/L (5-37); Bilirubin Total 0.6 mg/dL (0.0-1.0); Blood Urea Nitrogen 16 mg/dL (9-16); Calcium 9.7 mg/dL (8.4-10.2); Carbon Dioxide 26 mmol/L (22-29); Chloride 106 mmol/L (96-108); Creatinine Clr Calc Pharmacy 121.3; Estimated Glomerular Filt Rate > 60; Glucose Random 100 mg/dL (60-115); Sodium 144 mmol/L (135-145); Total Protein 8.4 g/dL (6.5-8.0)
[2023-11-21] VITALS (7 sets, daily range): BP systolic 123–142; BP diastolic 69–98; PULSE 74–76; RESP 16–18; TEMP 36.4–37.2; O2SAT 98–100; BMI 33.8
--- NOTE | 2023-11-21 | ECG_ITS ---
Test Reason : cocaine use Blood Pressure : / mmHG Vent. Rate : 072 BPM Atrial Rate : 072 BPM P-R Int : 168 ms QRS Dur : 084 ms QT Int : 412 ms P-R-T Axes : 033 008 019 degrees QTc Int : 451 ms Normal sinus rhythm Normal ECG When compared with ECG of 01-OCT-2023 10:15, No significant change was found Referred By: Treva Shannon Electronically Signed By:SONIYA NAVA
[2023-11-21] MEDS: OXcarbazepine 300 MG TABLET PO ×3 (00:11→21:03)
[2023-11-21] MEDS: Atorvastatin Calcium 20 MG TABLET PO ×2 (00:11→08:45)
[2023-11-21] MEDS: metFORMIN HCl 500 MG TABLET PO ×3 (00:12→21:03)
[2023-11-21] MEDS: Famotidine 20 MG TABLET 40 MG PO ×2 (00:12→08:45)
[2023-11-21] MEDS: LORazepam 1 MG TABLET 2 MG PO (00:12)
[2023-11-21] MEDS: Losartan Potassium 25 MG TABLET PO ×2 (00:12→08:45)
--- NOTE | 2023-11-21 02:04 | MHC.CARE ---
T/W attempted to awaken Pt at 2am but he would not wake up.(Previously medicated) . He will be assessed in the morning.
--- NOTE | 2023-11-21 06:42 | PC.NURSE ---
Patient slept through the night, no distress observed/reported, meds and meals compliant, disposition pending care team evaluation, VSS, will continue to monitor
[2023-11-21] MEDS: SITagliptin Phosphate 50 MG TABLET PO (08:45)
--- NOTE | 2023-11-21 18:40 | PC.ADMIT ---
Taran arrived via wheelchair from [facility] ED at 1700. He signed a CV with Dr Ramires. Cooperated with the safety/skin check. He is polite, soft spoken and oriented x4. Taran self presented to the ED after standing on a bridge planning to jump and was stopped by a stranger in a car, who offered to drive him to the hospital. He reports that he has not been taking his medications as i should have , I was feeling ok, didn't think I needed them . I need help, I want to go to a program after this, I cant do it on my own, I thought I could. He says his girlfriend told him that she has been cheating on him with a friend of his . Because he hasn't been taking his meds, the auditory hallucinations have been intermittently present. He finds them distressing as they tell me to do bad things to myself , the cocaine helps quiet them. But this time the [facility] told him to kill my girlfriend, her brother, her friend and myself , he reports having access to firearms. He endorses urge to kill himself now but doesn't have a plan currently. He reports no AH/VH at this time. He reports using marijuana daily and snorting cocaine a few times a week, last 2 days ago. He smokes 1/2 ppd cigarettes, but declines any NRT at this time. He did not want to discuss trauma history but was incarcerated a few times, last released 2018. He denies most health concerns but does have some lower back and left knee pain intermittently. His skin check was unremarkable. He remains on 15 minute safety checks.
[2023-11-21] MEDS: QUEtiapine Fumarate 300 MG TABLET PO (21:03)
[2023-11-21] MEDS: hydrOXYzine HCL 25 MG TABLET PO (21:04)
[2023-11-21] MEDS: OLANZapine 5 MG TABLET PO (21:04)
[2023-11-21] MEDS: traZODone HCL 100 MG TABLET PO (21:04)
[2023-11-22 08:00] VITALS: BP 132/88; PULSE 91; RESP 16; TEMP 36.5; O2SAT 93
[2023-11-22 08:31] LABS: Estimated Average Glucose 117 mg/dL; Hemoglobin A1c % 5.7 % (<6.0)
[2023-11-22 08:32] LABS: Cholesterol 152 mg/dL (<200); HDL Cholesterol 62 mg/dL (>40); LDL Cholesterol Calculated 65 mg/dL (<100); Triglycerides 128 mg/dL (<150)
[2023-11-22] MEDS: metFORMIN HCl 500 MG TABLET PO ×2 (09:01→21:09)
[2023-11-22] MEDS: Atorvastatin Calcium 20 MG TABLET PO (09:01)
[2023-11-22] MEDS: SITagliptin Phosphate 50 MG TABLET PO (09:02)
[2023-11-22] MEDS: Famotidine 20 MG TABLET 40 MG PO (09:02)
[2023-11-22] MEDS: OXcarbazepine 300 MG TABLET PO ×2 (09:02→21:09)
[2023-11-22 09:03] VITALS: BP 132/88
[2023-11-22] MEDS: Losartan Potassium 25 MG TABLET PO (09:03)
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
[2023-11-22 20:00] VITALS: BP 145/81; PULSE 73; RESP 18; TEMP 36.4; O2SAT 98
[2023-11-22] MEDS: traZODone HCL 100 MG TABLET PO (21:09)
[2023-11-22] MEDS: QUEtiapine Fumarate 300 MG TABLET PO (21:12)
[2023-11-23 08:00] VITALS: BP 133/72; PULSE 88; RESP 18; TEMP 36.8; O2SAT 97
[2023-11-23 08:10] VITALS: BP 133/72
[2023-11-23] MEDS: SITagliptin Phosphate 50 MG TABLET PO (08:10)
[2023-11-23] MEDS: Losartan Potassium 25 MG TABLET PO (08:10)
[2023-11-23] MEDS: OXcarbazepine 300 MG TABLET PO ×2 (08:10→22:26)
[2023-11-23] MEDS: metFORMIN HCl 500 MG TABLET PO ×2 (08:10→22:26)
[2023-11-23] MEDS: Atorvastatin Calcium 20 MG TABLET PO (08:10)
[2023-11-23] MEDS: Famotidine 20 MG TABLET 40 MG PO (08:11)
[2023-11-23 09:39] LABS: Glucose, Whole Blood 173 mg/dL (60-115)
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
[2023-11-23 20:00] VITALS: BP 134/72; BP 134/79; PULSE 83; TEMP 36.4; O2SAT 96; O2SAT 98
[2023-11-23] MEDS: traZODone HCL 100 MG TABLET PO (22:26)
[2023-11-23] MEDS: QUEtiapine Fumarate 300 MG TABLET PO (22:26)
[2023-11-24 08:00] VITALS: BP 126/88; PULSE 71; RESP 16; TEMP 36.3; O2SAT 97
[2023-11-24] MEDS: OLANZapine 5 MG TABLET PO (08:58)
[2023-11-24] MEDS: Famotidine 20 MG TABLET 40 MG PO (08:58)
[2023-11-24] MEDS: Atorvastatin Calcium 20 MG TABLET PO (08:58)
[2023-11-24] MEDS: SITagliptin Phosphate 50 MG TABLET PO (08:58)
[2023-11-24] MEDS: metFORMIN HCl 500 MG TABLET PO ×2 (08:58→21:33)
[2023-11-24] MEDS: Losartan Potassium 25 MG TABLET PO (08:58)
[2023-11-24] MEDS: OXcarbazepine 300 MG TABLET PO ×2 (08:59→21:33)
--- NOTE | 2023-11-24 10:09 | P.PNPSI_ITS ---
Subjective Subjective Date of Service: 11/24/23 Reason For Visit: Psychosis Interim History: Met with patient; discussed with team Patient reports that his mood is much better. He is glad that medication doses were not increased. Patient said that he would very much like to go to a program and reached out to a place called [facility] where he is on a waiting list. Patient said otherwise he does not want to go to [facility] since there is drug use there and in the vicinity. Patient reports sleeping well, eating well. He asks for point of care to be added since he says he checks his blood pressure twice a day; resume writer reviewed labs and hemoglobin A1c 5.7 Mental Status Exam Mental Status Exam Narrative: Pt is alert and oriented; behavior is cooperative, friendly and calm; patient is not in distress; dressed in hospital attire, facial tattoos facial piercings; unkempt;described as good and affect congruent, brighter; eye contact appropriate; Speech is normal rate, volume and prosody and not pressured; no psychomotor retardation; thought process is organized and goal directed; Thought content is on tx; otherwise pertinent to relevant topics and without any delusional content, paranoid ideations or grandiosity; no SI; no HI; no AH Patients insight and judgment fair. Diagnostics Vital Signs (24Hr): Vital Signs - 24 hr 11/23/23 20:00 11/23/23 20:00 11/24/23 08:00 Temperature 97.5 F 97.5 F 97.3 F Pulse Rate 83 83 71 Respiratory Rate 16 Blood Pressure 134/72 134/79 126/88 Pulse Oximetry 98 96 97 Oxygen Delivery Method Room Air Room Air Room Air BMI result Body Mass Index 33.8 Labs 11/20/23 23:26 11/20/23 23:26 Labs: Laboratory Results - last 48 hr 11/23/23 09:36 POC Glucose 173 H Medications Medications Current Medications Acetaminophen (Acetaminophen 325 Mg Tablet) 650 mg PO Q6H PRN PRN Reason: Headache/Pain Mild Scale (1-3) Al Hydroxide/Mg Hydroxide (Magnesium Hydrox/Alum Hydrox 30 Ml Oral.Susp) 30 ml PO Q6H PRN PRN Reason: Heartburn/Nausea Atorvastatin Calcium (Atorvastatin Calcium 20 Mg Tablet) 20 mg PO DAILY [facility] Last Admin: 11/24/23 08:58 Dose: 20 mg Famotidine (Famotidine 20 Mg Tablet) 40 mg PO DAILY [facility] Last Admin: 11/24/23 08:58 Dose: 40 mg Hydroxyzine HCl (Hydroxyzine Hcl 25 Mg Tablet) 25 mg PO Q6H PRN PRN Reason: Anxiety Last Admin: 11/21/23 21:04 Dose: 25 mg Losartan Potassium (Losartan Potassium 25 Mg Tablet) 25 mg PO DAILY [facility]; Protocol Last Admin: 11/24/23 08:58 Dose: 25 mg Magnesium Hydroxide (Milk Of Magnesia 30 Ml Oral.Susp) 30 ml PO DAILY PRN PRN Reason: Constipation Metformin HCl (Metformin Hcl 500 Mg Tablet) 500 mg PO BID [facility] Last Admin: 11/24/23 08:58 Dose: 500 mg Nicotine (Nicotine 21 Mg Patch.Td24) 21 mg TRANSDERMA DAILY PRN PRN Reason: smoking cessation Nicotine Polacrilex (Nicotine Polacrilex 2 Mg Gum) 4 mg BUCCAL Q2H PRN PRN Reason: Nicotine Cravings Olanzapine (Olanzapine 5 Mg Tablet) 5 mg PO TID PRN PRN Reason: agitation Last Admin: 11/24/23 08:58 Dose: 5 mg Oxcarbazepine (Oxcarbazepine 300 Mg Tablet) 300 mg PO BID [facility] Last Admin: 11/24/23 08:59 Dose: 300 mg Quetiapine Fumarate (Quetiapine Fumarate 300 Mg Tablet) 300 mg PO BEDTIME [facility] Last Admin: 11/23/23 22:26 Dose: 300 mg Sitagliptin Phosphate (Sitagliptin Phosphate 50 Mg Tablet) 50 mg PO DAILY [facility] Last Admin: 11/24/23 08:58 Dose: 50 mg Trazodone HCl (Trazodone Hcl 100 Mg Tablet) 100 mg PO BEDTIME [facility] Last Admin: 11/23/23 22:26 Dose: 100 mg Allergies Allergies Allergy/AdvReac Type Severity Reaction Status Date / Time No Known Allergies Allergy Verified 11/20/23 23:01 Assessment & Plan Assessment & Plan (1) Bipolar disorder: Status: Acute Code(s): F31.9 - Bipolar disorder, unspecified (2) PTSD (post-traumatic stress disorder): Status: Acute Code(s): F43.10 - Post-traumatic stress disorder, unspecified (3) Cocaine use disorder: Status: Acute Code(s): F14.10 - Cocaine abuse, uncomplicated Plan Patient is a 38-year-old male with history of depression PTSD, mood lability who presents for depression and SI in the face of broken relationship, coming off medication and relapse with cocaine. Patient says that he was overall doing well until, happy, living with his girlfriend, taking his medications and sober for 2 months about a month ago when he found out his girlfriend and best friend were having an affair. He said I snapped, said Fck-it and feeling depressed and hurt, gave in to relapse. He stopped taking his medications and for the past several weeks he has been homeless and engaged in ongoing cocaine abuse, depression, and having suicidal thoughts. He was admitted to [facility] but felt he left too soon and this past week he walked to a bridge planning to jump off; a pedestrian reached out to him and helped him come to the hospital. Patient denies any alcohol or opiate abuse; Patient endorses history of trauma. Patient endorses history of manic episode, while sober but not on medication, most recently a few months ago where for about 4 days, had excessively high energy, did not need any sleep, was talking very fast, felt like he was on something although he was fully sober; patient was cleaning all parts of the house over and over and was talking to unsafe people and visiting unsafe areas, places he would never go otherwise; patient also said during this time he had some paranoid thoughts, thinking people were watching him and his girlfriend got him to the hospital and he was psychiatrically admitted. A similar episode happened several months earlier. Formulation/clinical reasoning: From report, patient meets criteria for bipolar disorder; this was discussed with patient who accepts this possibility. It seems though that he only had manic episodes when he was not taking his prescribed Seroquel 300 mg q.h.s. which he has been on for years. Also his current depression seems triggered by situational event rather than medications being ineffective, so for now, will continue current medication regimen. Patient reports AH but says they are only present when depressed. -patient says he very much wants a program to help him be sober Hospital course: On admission, patient depressed, with lingering SI; restarted home medications 11/22 still depressed with suicidal thoughts; hoping that current home dose of Seroquel 300 mg will again become enough to help with depression and wants to remain on current dose before going up. Patient made sexually inappropriate remarks to female staff however was easily redirectable and very apologetic. Again discussed diagnosis and patient said he feels that bipolar disorder seems to make sense. 11/23 patient reports mood is good and that he is doing much better. Wants medications to stay at current dose. Still wants to go to a program but not [facility] due to reputation. Plan: CV Q 15 minute checks Continue Seroquel 300 mg q.h.s. Continue trazodone 100 mg q.h.s. Continue Trileptal 300 mg b.i.d. Continue Atorvastatin 20 mg daily Continue Famotidine 40 mg daily Continue Losartan 25 mg daily Continue Metformin 500 mg b.i.d. Continue Januvia 50 mg daily Patient educated on: diagnosis, medication risk/benefits, substance abuse and therapeutic strategies Informed Consent: understands Reason for continued inpatient stay Substantial Risk for: stable for discharge Time Spent With Patient Time: Total time managing care of this patient today ____ minutes.
--- NOTE | 2023-11-24 14:31 | MHC.RECOVRN ---
Met with pt on [facility] after consult placed to Addiction Medicine for cocaine use. Pt had presented to the ED reporting SI with plan to jump off bridge. Subsequently admitted to the behavioral health unit. Pt laying in bed, eyes closed, wakes to voice and engages in conversation. Pt reports cocaine use, 2 grams daily x 4 months. Pt reports K2 use, last use 7-8 months ago. Denies other substances. Pt reports longest period in recovery was while in [facility], 6 months. Pt denies other times in recovery. Pt is interested in reducing use. Discussed recovery resources and supports. Pt interested in cost recovery technician and continuing with inpatient [facility] treatment upon discharge from [facility]. Provided pt with written resources as well as t/w contact information if needed. Plan for assistant football coach to meet with pt this evening. Pt denies questions or concerns for t/w.
[2023-11-24 20:00] VITALS: BP 166/91; PULSE 74; TEMP 36.4; O2SAT 98
[2023-11-24] MEDS: traZODone HCL 100 MG TABLET PO (21:32)
[2023-11-24] MEDS: QUEtiapine Fumarate 300 MG TABLET PO (21:32)
[2023-11-24 23:50] VITALS: BP 137/65; PULSE 95; TEMP 36.4
[2023-11-25 00:02] LABS: Glucose, Whole Blood 109 mg/dL (60-115)
[2023-11-25 08:00] VITALS: BP 141/86; PULSE 67; RESP 16; TEMP 36.4; O2SAT 99
[2023-11-25] MEDS: metFORMIN HCl 500 MG TABLET PO ×2 (09:08→21:38)
[2023-11-25] MEDS: Famotidine 20 MG TABLET 40 MG PO (09:08)
[2023-11-25] MEDS: Losartan Potassium 25 MG TABLET PO (09:09)
[2023-11-25] MEDS: Atorvastatin Calcium 20 MG TABLET PO (09:09)
[2023-11-25] MEDS: hydrOXYzine HCL 25 MG TABLET PO (09:09)
[2023-11-25] MEDS: OXcarbazepine 300 MG TABLET PO ×2 (09:09→21:38)
[2023-11-25] MEDS: OLANZapine 5 MG TABLET PO (09:09)
[2023-11-25] MEDS: SITagliptin Phosphate 50 MG TABLET PO (09:09)
--- NOTE | 2023-11-25 09:58 | P.PNPSI_ITS ---
Subjective Subjective Date of Service: 11/25/23 Reason For Visit: Psychosis Interim History: met with patient; discussed with team Same presentation, no AVH, no SI. Still wants program at [facility]. No complaints; social with peers; no groups. Mental Status Exam Mental Status Exam Narrative: Pt is alert and oriented; behavior is cooperative, friendly and calm; patient is not in distress; dressed in hospital attire, facial tattoos facial piercings; unkempt;described as good and affect congruent, brighter; eye contact appropriate; Speech is normal rate, volume and prosody and not pressured; no psychomotor retardation; thought process is organized and goal directed; Thought content is on tx; otherwise pertinent to relevant topics and without any delusional content, paranoid ideations or grandiosity; no SI; no HI; no AH Patients insight and judgment fair. Diagnostics Vital Signs (24Hr): Vital Signs - 24 hr 11/24/23 20:00 11/24/23 23:50 11/25/23 08:00 Temperature 97.6 F 97.6 F 97.5 F Pulse Rate 74 95 67 Respiratory Rate 16 Blood Pressure 166/91 H 137/65 141/86 H Pulse Oximetry 98 99 Oxygen Delivery Method Room Air Room Air BMI result Body Mass Index 33.8 Labs 11/20/23 23:26 11/20/23 23:26 Labs: Laboratory Results - last 48 hr 11/24/23 23:58 POC Glucose 109 Medications Medications Current Medications Acetaminophen (Acetaminophen 325 Mg Tablet) 650 mg PO Q6H PRN PRN Reason: Headache/Pain Mild Scale (1-3) Al Hydroxide/Mg Hydroxide (Magnesium Hydrox/Alum Hydrox 30 Ml Oral.Susp) 30 ml PO Q6H PRN PRN Reason: Heartburn/Nausea Atorvastatin Calcium (Atorvastatin Calcium 20 Mg Tablet) 20 mg PO DAILY [facility] Last Admin: 11/25/23 09:09 Dose: 20 mg Famotidine (Famotidine 20 Mg Tablet) 40 mg PO DAILY [facility] Last Admin: 11/25/23 09:08 Dose: 40 mg Hydroxyzine HCl (Hydroxyzine Hcl 25 Mg Tablet) 25 mg PO Q6H PRN PRN Reason: Anxiety Last Admin: 11/25/23 09:09 Dose: 25 mg Losartan Potassium (Losartan Potassium 25 Mg Tablet) 25 mg PO DAILY [facility]; Protocol Last Admin: 11/25/23 09:09 Dose: 25 mg Magnesium Hydroxide (Milk Of Magnesia 30 Ml Oral.Susp) 30 ml PO DAILY PRN PRN Reason: Constipation Metformin HCl (Metformin Hcl 500 Mg Tablet) 500 mg PO BID [facility] Last Admin: 11/25/23 09:08 Dose: 500 mg Nicotine (Nicotine 21 Mg Patch.Td24) 21 mg TRANSDERMA DAILY PRN PRN Reason: smoking cessation Nicotine Polacrilex (Nicotine Polacrilex 2 Mg Gum) 4 mg BUCCAL Q2H PRN PRN Reason: Nicotine Cravings Olanzapine (Olanzapine 5 Mg Tablet) 5 mg PO TID PRN PRN Reason: agitation Last Admin: 11/25/23 09:09 Dose: 5 mg Oxcarbazepine (Oxcarbazepine 300 Mg Tablet) 300 mg PO BID [facility] Last Admin: 11/25/23 09:09 Dose: 300 mg Quetiapine Fumarate (Quetiapine Fumarate 300 Mg Tablet) 300 mg PO BEDTIME [facility] Last Admin: 11/24/23 21:32 Dose: 300 mg Sitagliptin Phosphate (Sitagliptin Phosphate 50 Mg Tablet) 50 mg PO DAILY [facility] Last Admin: 11/25/23 09:09 Dose: 50 mg Trazodone HCl (Trazodone Hcl 100 Mg Tablet) 100 mg PO BEDTIME [facility] Last Admin: 11/24/23 21:32 Dose: 100 mg Allergies Allergies Allergy/AdvReac Type Severity Reaction Status Date / Time No Known Allergies Allergy Verified 11/20/23 23:01 Assessment & Plan Assessment & Plan (1) Bipolar disorder: Status: Acute Code(s): F31.9 - Bipolar disorder, unspecified (2) PTSD (post-traumatic stress disorder): Status: Acute Code(s): F43.10 - Post-traumatic stress disorder, unspecified (3) Cocaine use disorder: Status: Acute Code(s): F14.10 - Cocaine abuse, uncomplicated Plan Patient is a 38-year-old male with history of depression PTSD, mood lability who presents for depression and SI in the face of broken relationship, coming off medication and relapse with cocaine. Patient says that he was overall doing well until, happy, living with his girlfriend, taking his medications and sober for 2 months about a month ago when he found out his girlfriend and best friend were having an affair. He said I snapped, said Fck-it and feeling depressed and hurt, gave in to relapse. He stopped taking his medications and for the past several weeks he has been homeless and engaged in ongoing cocaine abuse, depression, and having suicidal thoughts. He was admitted to [facility] but felt he left too soon and this past week he walked to a bridge planning to jump off; a pedestrian reached out to him and helped him come to the hospital. Patient denies any alcohol or opiate abuse; Patient endorses history of trauma. Patient endorses history of manic episode, while sober but not on medication, most recently a few months ago where for about 4 days, had excessively high energy, did not need any sleep, was talking very fast, felt like he was on something although he was fully sober; patient was cleaning all parts of the house over and over and was talking to unsafe people and visiting unsafe areas, places he would never go otherwise; patient also said during this time he had some paranoid thoughts, thinking people were watching him and his girlfriend got him to the hospital and he was psychiatrically admitted. A similar episode happened several months earlier. Formulation/clinical reasoning: From report, patient meets criteria for bipolar disorder; this was discussed with patient who accepts this possibility. It seems though that he only had manic episodes when he was not taking his prescribed Seroquel 300 mg q.h.s. which he has been on for years. Also his current depression seems triggered by situational event rather than medications being ineffective, so for now, will continue current medication regimen. Patient reports AH but says they are only present when depressed. -patient says he very much wants a program to help him be sober Hospital course: On admission, patient depressed, with lingering SI; restarted home medications 11/22 still depressed with suicidal thoughts; hoping that current home dose of Seroquel 300 mg will again become enough to help with depression and wants to remain on current dose before going up. Patient made sexually inappropriate remarks to female staff however was easily redirectable and very apologetic. Again discussed diagnosis and patient said he feels that bipolar disorder seems to make sense. 11/23 patient reports mood is good and that he is doing much better. Wants medications to stay at current dose. Still wants to go to a program but not [facility] due to reputation. 11/24 continue current tx plan Plan: CV Q 15 minute checks Continue Seroquel 300 mg q.h.s. Continue trazodone 100 mg q.h.s. Continue Trileptal 300 mg b.i.d. Continue Atorvastatin 20 mg daily Continue Famotidine 40 mg daily Continue Losartan 25 mg daily Continue Metformin 500 mg b.i.d. Continue Januvia 50 mg daily Patient educated on: diagnosis and medication risk/benefits Informed Consent: understands Reason for continued inpatient stay Substantial Risk for: stable for discharge Time Spent With Patient Time: Total time managing care of this patient today ____ minutes.
[2023-11-25 20:00] VITALS: BP 125/70; PULSE 81; RESP 16; TEMP 37.2; O2SAT 97
[2023-11-25] MEDS: QUEtiapine Fumarate 300 MG TABLET PO (21:37)
[2023-11-25] MEDS: traZODone HCL 100 MG TABLET PO (21:38)
[2023-11-25 21:54] LABS: Glucose, Whole Blood 160 mg/dL (60-115)
[2023-11-26 08:00] VITALS: BP 122/65; PULSE 96; RESP 16; TEMP 36.4; O2SAT 95
[2023-11-26 08:03] LABS: Glucose, Whole Blood 98 mg/dL (60-115)
[2023-11-26] MEDS: OXcarbazepine 300 MG TABLET PO ×2 (08:58→21:33)
[2023-11-26] MEDS: OLANZapine 5 MG TABLET PO (08:58)
[2023-11-26] MEDS: hydrOXYzine HCL 25 MG TABLET PO (08:58)
[2023-11-26] MEDS: SITagliptin Phosphate 50 MG TABLET PO (08:58)
[2023-11-26] MEDS: Atorvastatin Calcium 20 MG TABLET PO (08:58)
[2023-11-26] MEDS: Losartan Potassium 25 MG TABLET PO (08:59)
[2023-11-26] MEDS: Famotidine 20 MG TABLET 40 MG PO (08:59)
[2023-11-26] MEDS: metFORMIN HCl 500 MG TABLET PO ×2 (08:59→21:32)
[2023-11-26] MEDS: Magnesium Hydrox/Alum Hydrox 30 ML ORAL.SUSP PO (09:52)
--- NOTE | 2023-11-26 15:43 | P.PNPSI_ITS ---
Subjective Subjective Date of Service: 11/26/23 Reason For Visit: Psychosis Interim History: met with patient; discussed with team Same presentation. Patient says he is doing good feeling good, no AH, no SI and hopeful about getting into a program. Otherwise he says he will just go to a hotel until he gets accepted somewhere. Patient knows that this is a risk for relapse but has nowhere else to go and wants to be sober. Patient appropriate with peers and staff; social in the milieu. Not going to groups Mental Status Exam Mental Status Exam Narrative: Pt is alert and oriented; behavior is cooperative, friendly and calm; patient is not in distress; dressed in hospital attire, facial tattoos facial piercings; unkempt;described as good and affect congruent, brighter; eye contact appropriate; Speech is normal rate, volume and prosody and not pressured; no psychomotor retardation; thought process is organized and goal directed; Thought content is on tx; otherwise pertinent to relevant topics and without any delusional content, paranoid ideations or grandiosity; no SI; no HI; no AH Patients insight and judgment fair. Diagnostics Vital Signs (24Hr): Vital Signs - 24 hr 11/25/23 20:00 11/26/23 08:00 Temperature 98.9 F 97.5 F Pulse Rate 81 96 Respiratory Rate 16 16 Blood Pressure 125/70 122/65 Pulse Oximetry 97 95 Oxygen Delivery Method Room Air Room Air BMI result Body Mass Index 33.8 Labs 11/20/23 23:26 11/20/23 23:26 Labs: Laboratory Results - last 48 hr 11/24/23 11/25/23 11/26/23 23:58 21:35 07:54 POC Glucose 109 160 H 98 Medications Medications Current Medications Acetaminophen (Acetaminophen 325 Mg Tablet) 650 mg PO Q6H PRN PRN Reason: Headache/Pain Mild Scale (1-3) Al Hydroxide/Mg Hydroxide (Magnesium Hydrox/Alum Hydrox 30 Ml Oral.Susp) 30 ml PO Q6H PRN PRN Reason: Heartburn/Nausea Last Admin: 11/26/23 09:52 Dose: 30 ml Atorvastatin Calcium (Atorvastatin Calcium 20 Mg Tablet) 20 mg PO DAILY [facility] Last Admin: 11/26/23 08:58 Dose: 20 mg Famotidine (Famotidine 20 Mg Tablet) 40 mg PO DAILY [facility] Last Admin: 11/26/23 08:59 Dose: 40 mg Hydroxyzine HCl (Hydroxyzine Hcl 25 Mg Tablet) 25 mg PO Q6H PRN PRN Reason: Anxiety Last Admin: 11/26/23 08:58 Dose: 25 mg Losartan Potassium (Losartan Potassium 25 Mg Tablet) 25 mg PO DAILY [facility]; Protocol Last Admin: 11/26/23 08:59 Dose: 25 mg Magnesium Hydroxide (Milk Of Magnesia 30 Ml Oral.Susp) 30 ml PO DAILY PRN PRN Reason: Constipation Metformin HCl (Metformin Hcl 500 Mg Tablet) 500 mg PO BID [facility] Last Admin: 11/26/23 08:59 Dose: 500 mg Nicotine (Nicotine 21 Mg Patch.Td24) 21 mg TRANSDERMA DAILY PRN PRN Reason: smoking cessation Nicotine Polacrilex (Nicotine Polacrilex 2 Mg Gum) 4 mg BUCCAL Q2H PRN PRN Reason: Nicotine Cravings Olanzapine (Olanzapine 5 Mg Tablet) 5 mg PO TID PRN PRN Reason: agitation Last Admin: 11/26/23 08:58 Dose: 5 mg Oxcarbazepine (Oxcarbazepine 300 Mg Tablet) 300 mg PO BID [facility] Last Admin: 11/26/23 08:58 Dose: 300 mg Quetiapine Fumarate (Quetiapine Fumarate 300 Mg Tablet) 300 mg PO BEDTIME [facility] Last Admin: 11/25/23 21:37 Dose: 300 mg Sitagliptin Phosphate (Sitagliptin Phosphate 50 Mg Tablet) 50 mg PO DAILY [facility] Last Admin: 11/26/23 08:58 Dose: 50 mg Trazodone HCl (Trazodone Hcl 100 Mg Tablet) 100 mg PO BEDTIME [facility] Last Admin: 11/25/23 21:38 Dose: 100 mg Allergies Allergies Allergy/AdvReac Type Severity Reaction Status Date / Time No Known Allergies Allergy Verified 11/20/23 23:01 Assessment & Plan Assessment & Plan (1) Bipolar disorder: Status: Acute Code(s): F31.9 - Bipolar disorder, unspecified (2) PTSD (post-traumatic stress disorder): Status: Acute Code(s): F43.10 - Post-traumatic stress disorder, unspecified (3) Cocaine use disorder: Status: Acute Code(s): F14.10 - Cocaine abuse, uncomplicated Plan Patient is a 38-year-old male with history of depression PTSD, mood lability who presents for depression and SI in the face of broken relationship, coming off medication and relapse with cocaine. Patient says that he was overall doing well until, happy, living with his girlfriend, taking his medications and sober for 2 months about a month ago when he found out his girlfriend and best friend were having an affair. He said I snapped, said Fck-it and feeling depressed and hurt, gave in to relapse. He stopped taking his medications and for the past several weeks he has been homeless and engaged in ongoing cocaine abuse, depression, and having suicidal thoughts. He was admitted to [facility] but felt he left too soon and this past week he walked to a bridge planning to jump off; a pedestrian reached out to him and helped him come to the hospital. Patient denies any alcohol or opiate abuse; Patient endorses history of trauma. Patient endorses history of manic episode, while sober but not on medication, most recently a few months ago where for about 4 days, had excessively high energy, did not need any sleep, was talking very fast, felt like he was on something although he was fully sober; patient was cleaning all parts of the house over and over and was talking to unsafe people and visiting unsafe areas, places he would never go otherwise; patient also said during this time he had some paranoid thoughts, thinking people were watching him and his girlfriend got him to the hospital and he was psychiatrically admitted. A similar episode happened several months earlier. Formulation/clinical reasoning: From report, patient meets criteria for bipolar disorder; this was discussed with patient who accepts this possibility. It seems though that he only had manic episodes when he was not taking his prescribed Seroquel 300 mg q.h.s. which he has been on for years. Also his current depression seems triggered by situational event rather than medications being ineffective, so for now, will continue current medication regimen. Patient reports AH but says they are only present when depressed. -patient says he very much wants a program to help him be sober Hospital course: On admission, patient depressed, with lingering SI; restarted home medications 11/22 still depressed with suicidal thoughts; hoping that current home dose of Seroquel 300 mg will again become enough to help with depression and wants to remain on current dose before going up. Patient made sexually inappropriate remarks to female staff however was easily redirectable and very apologetic. Again discussed diagnosis and patient said he feels that bipolar disorder seems to make sense. 11/23 patient reports mood is good and that he is doing much better. Wants medications to stay at current dose. Still wants to go to a program but not [facility] due to reputation. 11/24 continue current tx plan 11/25 same presentation; continue treatment plan -POC's WNL Plan: CV Q 15 minute checks Continue Seroquel 300 mg q.h.s. Continue trazodone 100 mg q.h.s. Continue Trileptal 300 mg b.i.d. Continue Atorvastatin 20 mg daily Continue Famotidine 40 mg daily Continue Losartan 25 mg daily Continue Metformin 500 mg b.i.d. Continue Januvia 50 mg daily Patient educated on: diagnosis, medication risk/benefits and therapeutic strategies Informed Consent: understands Reason for continued inpatient stay Substantial Risk for: stable for discharge Time Spent With Patient Time: Total time managing care of this patient today ____ minutes.
[2023-11-26 19:45] VITALS: BP 140/83; PULSE 75; TEMP 36.4; O2SAT 99
[2023-11-26 21:32] VITALS: BP 140/83
[2023-11-26] MEDS: traZODone HCL 100 MG TABLET PO (21:32)
[2023-11-26] MEDS: QUEtiapine Fumarate 300 MG TABLET PO (21:32)
[2023-11-26] MEDS: cloNIDine HCL 0.1 MG TABLET PO (21:32)
[2023-11-26 21:48] LABS: Glucose, Whole Blood 174 mg/dL (60-115)
[2023-11-27 07:00] VITALS: BMI 35.1
[2023-11-27 08:31] LABS: Glucose, Whole Blood 134 mg/dL (60-115)
[2023-11-27 08:48] LABS: Creatinine Clr Calc Pharmacy 144.6; Estimated Glomerular Filt Rate > 60
[2023-11-27 08:52] VITALS: BP 133/85; PULSE 76; RESP 20; TEMP 36.3; O2SAT 98
[2023-11-27 08:56] VITALS: BP 133/85
[2023-11-27] MEDS: Famotidine 20 MG TABLET 40 MG PO (08:56)
[2023-11-27] MEDS: OXcarbazepine 300 MG TABLET PO ×2 (08:56→21:16)
[2023-11-27] MEDS: Losartan Potassium 25 MG TABLET PO (08:56)
[2023-11-27] MEDS: SITagliptin Phosphate 50 MG TABLET PO (08:56)
[2023-11-27] MEDS: Atorvastatin Calcium 20 MG TABLET PO (08:57)
[2023-11-27] MEDS: metFORMIN HCl 500 MG TABLET PO ×2 (09:06→21:16)
--- NOTE | 2023-11-27 16:58 | P.PNPSI_ITS ---
Subjective Subjective Date of Service: 11/27/23 Reason For Visit: Psychosis Interim History: Met with patient; discussed with team Patient reports much trouble sleeping and that clonidine has not helped all. He again asks for increase in Seroquel; pattern chart writer reviewed risks/side effects and that they are dose dependent with which patient understood but feels that potential benefit of increased dose outweighs the risks. Otherwise patient reports he has in a good mood, doing well and grateful for help received. Mental Status Exam Mental Status Exam Narrative: Pt is alert and oriented; behavior is cooperative, friendly and calm; patient is not in distress; dressed in hospital attire, facial tattoos facial piercings; unkempt;described as good and affect congruent, brighter; eye contact appropriate; Speech is normal rate, volume and prosody and not pressured; no psychomotor retardation; thought process is organized and goal directed; Thought content is on tx; otherwise pertinent to relevant topics and without any delusional content, paranoid ideations or grandiosity; no SI; no HI; no AH Patients insight and judgment fair. Diagnostics Vital Signs (24Hr): Vital Signs - 24 hr 11/26/23 19:45 11/26/23 21:32 11/27/23 08:52 Temperature 97.5 F 97.4 F Pulse Rate 75 76 Respiratory Rate 20 Blood Pressure 140/83 H 140/83 H 133/85 Pulse Oximetry 99 98 Oxygen Delivery Method Room Air Room Air 11/27/23 08:56 Temperature Pulse Rate Respiratory Rate Blood Pressure 133/85 Pulse Oximetry Oxygen Delivery Method BMI result Body Mass Index 35.1 Labs 11/20/23 23:26 11/27/23 08:01 Labs: Laboratory Results - last 48 hr 11/25/23 11/26/23 11/26/23 21:35 07:54 21:44 Creatinine Estim Creat Clear Calc Estimated GFR POC Glucose 160 H 98 174 H 11/27/23 11/27/23 08:01 08:20 Creatinine 0.89 Estim Creat Clear Calc 144.6 Estimated GFR > 60 POC Glucose 134 H Medications Medications Current Medications Acetaminophen (Acetaminophen 325 Mg Tablet) 650 mg PO Q6H PRN PRN Reason: Headache/Pain Mild Scale (1-3) Al Hydroxide/Mg Hydroxide (Magnesium Hydrox/Alum Hydrox 30 Ml Oral.Susp) 30 ml PO Q6H PRN PRN Reason: Heartburn/Nausea Last Admin: 11/26/23 09:52 Dose: 30 ml Atorvastatin Calcium (Atorvastatin Calcium 20 Mg Tablet) 20 mg PO DAILY [facility] Last Admin: 11/27/23 08:57 Dose: 20 mg Clonidine HCl (Clonidine Hcl 0.1 Mg Tablet) 0.1 mg PO BEDTIME [facility]; Protocol Last Admin: 11/26/23 21:32 Dose: 0.1 mg Clonidine HCl (Clonidine Hcl 0.1 Mg Tablet) 0.1 mg PO Q4H PRN; Protocol PRN Reason: anxiety/continued insomnia Famotidine (Famotidine 20 Mg Tablet) 40 mg PO DAILY [facility] Last Admin: 11/27/23 08:56 Dose: 40 mg Hydroxyzine HCl (Hydroxyzine Hcl 25 Mg Tablet) 25 mg PO Q6H PRN PRN Reason: Anxiety Last Admin: 11/26/23 08:58 Dose: 25 mg Losartan Potassium (Losartan Potassium 25 Mg Tablet) 25 mg PO DAILY [facility]; Protocol Last Admin: 11/27/23 08:56 Dose: 25 mg Magnesium Hydroxide (Milk Of Magnesia 30 Ml Oral.Susp) 30 ml PO DAILY PRN PRN Reason: Constipation Metformin HCl (Metformin Hcl 500 Mg Tablet) 500 mg PO BID [facility] Last Admin: 11/27/23 09:06 Dose: 500 mg Nicotine (Nicotine 21 Mg Patch.Td24) 21 mg TRANSDERMA DAILY PRN PRN Reason: smoking cessation Nicotine Polacrilex (Nicotine Polacrilex 2 Mg Gum) 4 mg BUCCAL Q2H PRN PRN Reason: Nicotine Cravings Olanzapine (Olanzapine 5 Mg Tablet) 5 mg PO TID PRN PRN Reason: agitation Last Admin: 11/26/23 08:58 Dose: 5 mg Oxcarbazepine (Oxcarbazepine 300 Mg Tablet) 300 mg PO BID [facility] Last Admin: 11/27/23 08:56 Dose: 300 mg Quetiapine Fumarate (Quetiapine Fumarate 300 Mg Tablet) 300 mg PO BEDTIME [facility] Last Admin: 11/26/23 21:32 Dose: 300 mg Sitagliptin Phosphate (Sitagliptin Phosphate 50 Mg Tablet) 50 mg PO DAILY [facility] Last Admin: 11/27/23 08:56 Dose: 50 mg Trazodone HCl (Trazodone Hcl 100 Mg Tablet) 100 mg PO BEDTIME [facility] Last Admin: 11/26/23 21:32 Dose: 100 mg Allergies Allergies Allergy/AdvReac Type Severity Reaction Status Date / Time No Known Allergies Allergy Verified 11/20/23 23:01 Assessment & Plan Assessment & Plan (1) Bipolar disorder: Status: Acute Code(s): F31.9 - Bipolar disorder, unspecified (2) PTSD (post-traumatic stress disorder): Status: Acute Code(s): F43.10 - Post-traumatic stress disorder, unspecified (3) Cocaine use disorder: Status: Acute Code(s): F14.10 - Cocaine abuse, uncomplicated Plan Patient is a 38-year-old male with history of depression PTSD, mood lability who presents for depression and SI in the face of broken relationship, coming off medication and relapse with cocaine. Patient says that he was overall doing well until, happy, living with his girlfriend, taking his medications and sober for 2 months about a month ago when he found out his girlfriend and best friend were having an affair. He said I snapped, said Fck-it and feeling depressed and hurt, gave in to relapse. He stopped taking his medications and for the past several weeks he has been homeless and engaged in ongoing cocaine abuse, depression, and having suicidal thoughts. He was admitted to [facility] but felt he left too soon and this past week he walked to a bridge planning to jump off; a pedestrian reached out to him and helped him come to the hospital. Patient denies any alcohol or opiate abuse; Patient endorses history of trauma. Patient endorses history of manic episode, while sober but not on medication, most recently a few months ago where for about 4 days, had excessively high energy, did not need any sleep, was talking very fast, felt like he was on something although he was fully sober; patient was cleaning all parts of the house over and over and was talking to unsafe people and visiting unsafe areas, places he would never go otherwise; patient also said during this time he had some paranoid thoughts, thinking people were watching him and his girlfriend got him to the hospital and he was psychiatrically admitted. A similar episode happened several months earlier. Formulation/clinical reasoning: From report, patient meets criteria for bipolar disorder; this was discussed with patient who accepts this possibility. It seems though that he only had manic episodes when he was not taking his prescribed Seroquel 300 mg q.h.s. which he has been on for years. Also his current depression seems triggered by situational event rather than medications being ineffective, so for now, will continue current medication regimen. Patient reports AH but says they are only present when depressed. -patient says he very much wants a program to help him be sober Hospital course: On admission, patient depressed, with lingering SI; restarted home medications 11/22 still depressed with suicidal thoughts; hoping that current home dose of Seroquel 300 mg will again become enough to help with depression and wants to remain on current dose before going up. Patient made sexually inappropriate remarks to female staff however was easily redirectable and very apologetic. Again discussed diagnosis and patient said he feels that bipolar disorder seems to make sense. 11/23 patient reports mood is good and that he is doing much better. Wants medications to stay at current dose. Still wants to go to a program but not [facility] due to reputation. 11/24 continue current tx plan 11/25 same presentation; continue treatment plan -POC's WNL 11/26 increase Seroquel to 400 mg Patient remains in good behavioral and impulse control; appropriate peers and staff; feels stable and is asking for and anticipating discharge on Friday with which pattern chart writer agrees. His plan is to stay in a hotel and though he knows he is vulnerable for relapse he is optimistic about staying sober and hopeful to get into [facility] treatment program for which he is currently on the list and waiting for an opening. Patient is not in imminent risk for harm to self and appropriate to return to the community for treatment. His discharge request is honored. Plan: CV Q 15 minute checks Increase to Seroquel 400 mg q.h.s. Continue trazodone 100 mg q.h.s. Continue Trileptal 300 mg b.i.d. Continue Atorvastatin 20 mg daily Continue Famotidine 40 mg daily Continue Losartan 25 mg daily Continue Metformin 500 mg b.i.d. Continue Januvia 50 mg daily Patient educated on: diagnosis, medication risk/benefits and substance abuse Informed Consent: understands Reason for continued inpatient stay Substantial Risk for: stable for discharge Time Spent With Patient Time: Total time managing care of this patient today ____ minutes.
[2023-11-27 20:00] VITALS: BP 178/100; PULSE 89; RESP 18; TEMP 36.6; O2SAT 96
[2023-11-27 20:33] LABS: Glucose, Whole Blood 129 mg/dL (60-115)
[2023-11-27 21:15] VITALS: BP 178/100
[2023-11-27] MEDS: cloNIDine HCL 0.1 MG TABLET PO (21:15)
[2023-11-27] MEDS: traZODone HCL 100 MG TABLET PO (21:16)
[2023-11-27] MEDS: hydrOXYzine HCL 25 MG TABLET PO (21:16)
[2023-11-27] MEDS: OLANZapine 5 MG TABLET PO (21:16)
[2023-11-27] MEDS: QUEtiapine Fumarate 300 MG TABLET PO (21:45)
[2023-11-28 07:51] LABS: Glucose, Whole Blood 119 mg/dL (60-115)
[2023-11-28 08:27] VITALS: BP 124/58; PULSE 65; RESP 16; TEMP 36.4; O2SAT 98
[2023-11-28 09:41] VITALS: BP 140/94
[2023-11-28] MEDS: Famotidine 20 MG TABLET 40 MG PO (09:41)
[2023-11-28] MEDS: metFORMIN HCl 500 MG TABLET PO ×2 (09:41→22:34)
[2023-11-28] MEDS: Losartan Potassium 25 MG TABLET PO ×2 (09:41→15:00)
[2023-11-28] MEDS: Atorvastatin Calcium 20 MG TABLET PO (09:41)
[2023-11-28] MEDS: SITagliptin Phosphate 50 MG TABLET PO (09:42)
[2023-11-28] MEDS: OXcarbazepine 300 MG TABLET PO ×2 (09:42→22:34)
--- NOTE | 2023-11-28 12:15 | PM.PSYDC ---
DS: Providers Provider Date of Service: 11/29/23 Date of admission: 11/21/23 16:17 Date of discharge: 11/29/23 Primary care physician: Unknown Physician Attending physician on admission: Mick Ramires Consults: 11/20/23 23:16 Consult to Care Team Stat Comment: Reason for consultation: si 11/21/23 21:03 Addiction Medicine Routine Consulting Provider: Addiction Covering Reason for consultation: cocaine use disorder Has provider been notified: Yes Attending physician on discharge: Mick Ramires DS: Diagnosis Discharge Diagnosis (1) Bipolar disorder: Status: Acute (2) PTSD (post-traumatic stress disorder): Status: Acute (3) Cocaine use disorder: Status: Acute DS: Medications Discharge Medications Home Medications: Previous Rx's ?Medication ?Instructions ?Recorded atorvastatin 20 mg tablet 20 mg PO QAM 30 days #30 tabs 11/28/23 famotidine 40 mg tablet 40 mg PO QAM 30 days #30 tabs 11/28/23 hydroxyzine HCl 25 mg tablet 25 mg PO Q6H PRN Anxiety 30 days 11/28/23 #60 tabs losartan 50 mg tablet 50 mg PO DAILY 30 days #30 tabs 11/28/23 metformin 500 mg tablet 500 mg PO BID 30 days #60 tabs 11/28/23 oxcarbazepine 300 mg tablet 300 mg PO BID 30 days #60 tabs 11/28/23 quetiapine 400 mg tablet 400 mg PO BEDTIME 30 days #30 tabs 11/28/23 sitagliptin phosphate 50 mg tablet 50 mg PO DAILY 30 days #30 tabs 11/28/23 (Januvia) trazodone 100 mg tablet 100 mg PO BEDTIME PRN insomnia 30 11/28/23 days #30 tabs Mental Status Exam Mental Status Exam Narrative: Pt is alert and oriented; behavior is cooperative, friendly and calm; patient is not in distress; dressed in casual attire, facial tattoos facial piercings; unkempt;described as good and affect congruent, brighter; eye contact appropriate; Speech is normal rate, volume and prosody and not pressured; no psychomotor retardation; thought process is organized and goal directed; Thought content is on tx; otherwise pertinent to relevant topics and without any delusional content, paranoid ideations or grandiosity; no SI; no HI; no AH Patients insight and judgment fair. Data Data Completed and Pending Completed studies during hospitalization [Text1]: 11/22/23 11/23/23 11/24/23 08:02 09:36 23:58 Creatinine Estim Creat Clear Calc Estimated GFR POC Glucose 173 H 109 Estimat Average Glucose 117 Hemoglobin A1c % 5.7 Triglycerides 128 Cholesterol 152 LDL Cholesterol, Calc 65 HDL Cholesterol 62 11/25/23 11/26/23 11/26/23 21:35 07:54 21:44 Creatinine Estim Creat Clear Calc Estimated GFR POC Glucose 160 H 98 174 H Estimat Average Glucose Hemoglobin A1c % Triglycerides Cholesterol LDL Cholesterol, Calc HDL Cholesterol 11/27/23 11/27/23 11/27/23 08:01 08:20 20:26 Creatinine 0.89 Estim Creat Clear Calc 144.6 Estimated GFR > 60 POC Glucose 134 H 129 H Estimat Average Glucose Hemoglobin A1c % Triglycerides Cholesterol LDL Cholesterol, Calc HDL Cholesterol 11/28/23 07:47 Creatinine Estim Creat Clear Calc Estimated GFR POC Glucose 119 H Estimat Average Glucose Hemoglobin A1c % Triglycerides Cholesterol LDL Cholesterol, Calc HDL Cholesterol DS: Summary Hospital Course Hospital Course: Patient is a 38-year-old male with history of depression PTSD, mood lability who presents for depression and SI in the face of broken relationship, coming off medication and relapse with cocaine. Patient says that he was overall doing well until, happy, living with his girlfriend, taking his medications and sober for 2 months about a month ago when he found out his girlfriend and best friend were having an affair. He said I snapped, said Fck-it and feeling depressed and hurt, gave in to relapse. He stopped taking his medications and for the past several weeks he has been homeless and engaged in ongoing cocaine abuse, depression, and having suicidal thoughts. He was admitted to [facility] but felt he left too soon and this past week he walked to a bridge planning to jump off; a pedestrian reached out to him and helped him come to the hospital. Patient denies any alcohol or opiate abuse; Patient endorses history of trauma. Patient endorses history of manic episode, while sober but not on medication, most recently a few months ago where for about 4 days, had excessively high energy, did not need any sleep, was talking very fast, felt like he was on something although he was fully sober; patient was cleaning all parts of the house over and over and was talking to unsafe people and visiting unsafe areas, places he would never go otherwise; patient also said during this time he had some paranoid thoughts, thinking people were watching him and his girlfriend got him to the hospital and he was psychiatrically admitted. A similar episode happened several months earlier. Formulation/clinical reasoning: From report, patient meets criteria for bipolar disorder; this was discussed with patient who accepts this possibility. It seems though that he only had manic episodes when he was not taking his prescribed Seroquel 300 mg q.h.s. which he has been on for years. Also his current depression seems triggered by situational event rather than medications being ineffective, so for now, will continue current medication regimen. Patient reports AH but says they are only present when depressed. -patient says he very much wants a program to help him be sober Hospital course: On admission, patient depressed, with lingering SI; restarted home medications 11/22 still depressed with suicidal thoughts; hoping that current home dose of Seroquel 300 mg will again become enough to help with depression and wants to remain on current dose before going up. Patient made sexually inappropriate remarks to female staff however was easily redirectable and very apologetic. Again discussed diagnosis and patient said he feels that bipolar disorder seems to make sense. 11/23 patient reports mood is good and that he is doing much better. Wants medications to stay at current dose. Still wants to go to a program but not [facility] due to reputation. 11/24 continue current tx plan 11/25 same presentation; continue treatment plan -POC's WNL 11/26 increase Seroquel to 400 mg Patient remains in good behavioral and impulse control; appropriate peers and staff; feels stable and is asking for and anticipating discharge on Friday with which typewriter assembler agrees. His plan is to stay in a hotel and though he knows he is vulnerable for relapse he is optimistic about staying sober and hopeful to get into [facility] treatment program for which he is currently on the list and waiting for an opening. Patient is not in imminent risk for harm to self and appropriate to return to the community for treatment. His discharge request is honored. Medication: Increase to Seroquel 400 mg q.h.s. Continue trazodone 100 mg q.h.s. Continue Trileptal 300 mg b.i.d. Continue Atorvastatin 20 mg daily Continue Famotidine 40 mg daily Continue Losartan 25 mg daily Continue Metformin 500 mg b.i.d. Continue Januvia 50 mg daily Time spent discussing smoking cessation with patient: 3 to 10 minutes Status at Discharge Functional status at discharge: independent ambulation Overall status at discharge: patient is back to baseline Time Spent with Patient Time attestation: Total time managing care of this patient today ____ minutes. Time spent: Less than 30 minutes Discharge Plan Discharge Anticipated Discharge Date/Time: 11/29/23 10:30 Patient Disposition: Care Home Discharge Diagnosis: Bipolar I disorder, severe, recurrent, most recently depressed, in full remission Referrals: ALISE CARRERO: [facility] (Therapy) [Other] - 12/09/23 10:00 am (Hospital discharge appointment Initial diagnostic evaluation for therapy Appointment in person at [facility]) Tino Bar: [facility] (Psychiatry) [Other] - 01/05/24 4:00 pm (Hospital Discharge appointment Initial psychiatric evaluation for medication management by a psychiatric provider. Appointment in person at [facility]) Physician,Unknown J [Primary Care Provider] - 1 Week Discharge Medications: Discontinued metformin 500 mg tablet 500 mg PO BID atorvastatin 20 mg tablet 20 mg PO QAM famotidine 40 mg tablet 40 mg PO QAM oxcarbazepine 300 mg tablet 300 mg PO BID losartan 25 mg tablet 25 mg PO QAM Januvia 50 mg tablet 50 mg PO DAILY No Action atorvastatin 20 mg tablet 20 mg PO DAILY 30 Days Qty: 30 1RF prazosin 5 mg capsule 5 mg PO BEDTIME 30 Days Qty: 30 1RF Rx Instructions: Take with 2 mg capsule quetiapine 50 mg Tablet 50 mg PO BEDTIME 30 Days Qty: 30 1RF Rx Instructions: Take with 300 mg tablet simethicone [Gas Relief (simethicone)] 80 mg Tablet,Chewable 80 mg PO QIDWMHS PRN (Reason: flatulance) 30 Days Qty: 60 0RF Januvia 50 mg Tablet 50 mg PO DAILY 30 Days Qty: 30 0RF losartan 50 mg tablet 50 mg PO DAILY 30 Days Qty: 30 0RF metformin 500 mg tablet 500 mg PO BID 30 Days Qty: 60 0RF quetiapine 300 mg tablet 300 mg PO BEDTIME 30 Days Qty: 30 1RF Rx Instructions: Take with 50 mg tablet oxcarbazepine 300 mg tablet 300 mg PO BID 30 Days Qty: 60 1RF famotidine 20 mg tablet 20 mg PO BID 30 Days Qty: 60 1RF trazodone 100 mg Tablet 100 mg PO BEDTIME PRN (Reason: insomnia) 30 Days Qty: 30 1RF hydroxyzine HCl 25 mg Tablet 25 mg PO Q6H PRN (Reason: Anxiety) 30 Days Qty: 60 1RF prazosin 2 mg capsule 2 mg PO BEDTIME 30 Days Qty: 30 1RF Rx Instructions: Take with 5 mg capsule cholecalciferol (vitamin D3) [Vitamin D3] 25 mcg (1,000 unit) Tablet 25 mcg PO DAILY 30 Days Qty: 30 0RF melatonin 5 mg tablet 10 mg PO BEDTIME PRN (Reason: sleep) 30 Days Qty: 60 1RF Discharge Orders: Discharge Order (Routine); Ordered 11/29/23 Ordered By: Mick Ramires Diet: Diabetic diet Activity on Discharge: As tolerated Stand Alone Forms: Patient Portal Discharge page, Community Support Print Language: Portuguese Care Plan Goals: Maintain mood and safe behaviors Take medications as prescribed Continue to pursue sobriety Practice coping skills Continue with outpatient providers and reach out to them as needed Health Concerns: Mood stability and behaviors Sobriety Diabetes Hypertension Plan of Treatment: Follow up with your PCP, psychiatric provider and other outpatient providers regarding above concerns Take medications as prescribed Assessment: Risk assessment at time of discharge:? Patient was interviewed prior to discharge and found to be fully oriented and without any SI or HI. Patient has improved insight and judgment and wants to continue treatment. Patient is not in imminent risk of harm to self or others and has a safety plan that includes presenting to the closest ER or calling 911 if feeling unsafe.? Patient has been observed closely by nursing and unit staff throughout admission; patient has not engaged in any behaviors that suggest dangerousness to self or others and has demonstrated appropriate behaviors and impulse control Discharge Date/Time: 11/29/23 10:35
--- NOTE | 2023-11-28 13:25 | HO.PSYCHPN ---
Subjective Subjective Date of Service: 11/28/23 Reason For Visit: Psychosis Subjective Notes: Conditional Voluntary Interim History: Active on unit, social with peers. Pt reports feeling good today; pt stated, I'm not feeling anxious or depressed. I feel ready to go. I'm going to go back to my ex-girlfriend's apartment because I don't have anywhere else to go. I'm going to look for a room to rent . Pt denies SI/HI/VH/AH. Medication Compliance: Yes Side effects from medications: No Attending Groups: Yes Review of Systems Constitutional: Reports as per HPI Eyes: Reports as per HPI Reports as per HPI Cardiovascular: Reports as per HPI Respiratory: Reports as per HPI Gastrointestinal: Reports as per HPI Genitourinary: Reports as per HPI Musculoskeletal: Reports as per HPI Skin/Breast: Reports as per HPI Reports as per HPI Psychiatric: Reports as per HPI Endocrine: Reports as per HPI Hematologic/Lymphatic: Reports as per HPI Allergic/Immunologic: Reports as per HPI Mental Status Exam Mental Status Exam Narrative: Pt is alert and oriented; behavior is cooperative, friendly and calm; dressed in casual attire; mood is described as good ; eye contact appropriate; Speech is normal rate, volume and not pressured; thought process is organized and goal directed; Thought content is on tx; otherwise pertinent to relevant topics and without any delusional content, paranoid ideations or grandiosity; denies SI/HI/VH/AH. Diagnostics Vital Signs (24Hr): Vital Signs - 24 hr 11/27/23 20:00 11/27/23 21:15 11/28/23 08:27 Temperature 98 F 97.6 F Pulse Rate 89 65 Respiratory Rate 18 16 Blood Pressure 178/100 H 178/100 H 124/58 L Pulse Oximetry 96 98 Oxygen Delivery Method Room Air Room Air 11/28/23 09:41 Temperature Pulse Rate Respiratory Rate Blood Pressure 140/94 H Pulse Oximetry Oxygen Delivery Method BMI result Body Mass Index 35.1 Labs 11/20/23 23:26 11/27/23 08:01 Labs: Laboratory Results - last 48 hr 11/26/23 11/27/23 11/27/23 21:44 08:01 08:20 Creatinine 0.89 Estim Creat Clear Calc 144.6 Estimated GFR > 60 POC Glucose 174 H 134 H 11/27/23 11/28/23 20:26 07:47 Creatinine Estim Creat Clear Calc Estimated GFR POC Glucose 129 H 119 H Medications Medications Current Medications Acetaminophen (Acetaminophen 325 Mg Tablet) 650 mg PO Q6H PRN PRN Reason: Headache/Pain Mild Scale (1-3) Al Hydroxide/Mg Hydroxide (Magnesium Hydrox/Alum Hydrox 30 Ml Oral.Susp) 30 ml PO Q6H PRN PRN Reason: Heartburn/Nausea Last Admin: 11/26/23 09:52 Dose: 30 ml Atorvastatin Calcium (Atorvastatin Calcium 20 Mg Tablet) 20 mg PO DAILY [facility] [place] Last Admin: 11/28/23 09:41 Dose: 20 mg Clonidine HCl (Clonidine Hcl 0.1 Mg Tablet) 0.1 mg PO Q4H PRN; Protocol PRN Reason: anxiety/continued insomnia Famotidine (Famotidine 20 Mg Tablet) 40 mg PO DAILY [facility] [place] Last Admin: 11/28/23 09:41 Dose: 40 mg Hydroxyzine HCl (Hydroxyzine Hcl 25 Mg Tablet) 25 mg PO Q6H PRN PRN Reason: Anxiety Last Admin: 11/27/23 21:16 Dose: 25 mg Losartan Potassium (Losartan Potassium 50 Mg Tablet) 50 mg PO DAILY [facility] [place]; Protocol Magnesium Hydroxide (Milk Of Magnesia 30 Ml Oral.Susp) 30 ml PO DAILY PRN PRN Reason: Constipation Metformin HCl (Metformin Hcl 500 Mg Tablet) 500 mg PO BID [facility] [place] Last Admin: 11/28/23 09:41 Dose: 500 mg Naloxone HCl (Naloxone Hcl Nasal Take Home 4 Mg [place]) 8 mg NOSTRILALT ONCE ONE Stop: 11/29/23 09:01 Nicotine (Nicotine 21 Mg Patch.Td24) 21 mg TRANSDERMA DAILY PRN PRN Reason: smoking cessation Nicotine Polacrilex (Nicotine Polacrilex 2 Mg Gum) 4 mg BUCCAL Q2H PRN PRN Reason: Nicotine Cravings Olanzapine (Olanzapine 5 Mg Tablet) 5 mg PO TID PRN PRN Reason: agitation Last Admin: 11/27/23 21:16 Dose: 5 mg Oxcarbazepine (Oxcarbazepine 300 Mg Tablet) 300 mg PO BID [facility] [place] Last Admin: 11/28/23 09:42 Dose: 300 mg Quetiapine Fumarate (Quetiapine Fumarate 400 Mg Tablet) 400 mg PO BEDTIME [facility] [place] Sitagliptin Phosphate (Sitagliptin Phosphate 50 Mg Tablet) 50 mg PO DAILY [facility] [place] Last Admin: 11/28/23 09:42 Dose: 50 mg Trazodone HCl (Trazodone Hcl 100 Mg Tablet) 100 mg PO BEDTIME [facility] Last Admin: 11/27/23 21:16 Dose: 100 mg Allergies Allergies Allergy/AdvReac Type Severity Reaction Status Date / Time No Known Allergies Allergy Verified 11/20/23 23:01 Assessment & Plan Assessment & Plan (1) Bipolar disorder: Status: Acute Code(s): F31.9 - Bipolar disorder, unspecified (2) PTSD (post-traumatic stress disorder): Status: Acute Code(s): F43.10 - Post-traumatic stress disorder, unspecified (3) Cocaine use disorder: Status: Acute Code(s): F14.10 - Cocaine abuse, uncomplicated Plan Patient is a 38-year-old male with history of depression PTSD, mood lability who presents for depression and SI in the face of broken relationship, coming off medication and relapse with cocaine. Patient says that he was overall doing well until, happy, living with his girlfriend, taking his medications and sober for 2 months about a month ago when he found out his girlfriend and best friend were having an affair. He said I snapped, said Fck-it and feeling depressed and hurt, gave in to relapse. He stopped taking his medications and for the past several weeks he has been homeless and engaged in ongoing cocaine abuse, depression, and having suicidal thoughts. He was admitted to [facility] but felt he left too soon and this past week he walked to a bridge planning to jump off; a pedestrian reached out to him and helped him come to the hospital. Patient denies any alcohol or opiate abuse; Patient endorses history of trauma. Patient endorses history of manic episode, while sober but not on medication, most recently a few months ago where for about 4 days, had excessively high energy, did not need any sleep, was talking very fast, felt like he was on something although he was fully sober; patient was cleaning all parts of the house over and over and was talking to unsafe people and visiting unsafe areas, places he would never go otherwise; patient also said during this time he had some paranoid thoughts, thinking people were watching him and his girlfriend got him to the hospital and he was psychiatrically admitted. A similar episode happened several months earlier. Formulation/clinical reasoning: From report, patient meets criteria for bipolar disorder; this was discussed with patient who accepts this possibility. It seems though that he only had manic episodes when he was not taking his prescribed Seroquel 300 mg q.h.s. which he has been on for years. Also his current depression seems triggered by situational event rather than medications being ineffective, so for now, will continue current medication regimen. Patient reports AH but says they are only present when depressed. -patient says he very much wants a program to help him be sober Hospital course: On admission, patient depressed, with lingering SI; restarted home medications 11/22 still depressed with suicidal thoughts; hoping that current home dose of Seroquel 300 mg will again become enough to help with depression and wants to remain on current dose before going up. Patient made sexually inappropriate remarks to female staff however was easily redirectable and very apologetic. Again discussed diagnosis and patient said he feels that bipolar disorder seems to make sense. 11/23 patient reports mood is good and that he is doing much better. Wants medications to stay at current dose. Still wants to go to a program but not [facility] due to reputation. 11/24 continue current tx plan 11/25 same presentation; continue treatment plan -POC's WNL 11/26 increase Seroquel to 400 mg Patient remains in good behavioral and impulse control; appropriate peers and staff; feels stable and is asking for and anticipating discharge on Friday with which sheet writer agrees. His plan is to stay in a hotel and though he knows he is vulnerable for relapse he is optimistic about staying sober and hopeful to get into [facility] treatment program for which he is currently on the list and waiting for an opening. Patient is not in imminent risk for harm to self and appropriate to return to the community for treatment. His discharge request is honored. 11/27: Active on unit, social with peers. Pt reports feeling good today; pt stated, I'm not feeling anxious or depressed. I feel ready to go. I'm going to go back to my ex-girlfriend's apartment because I don't have anywhere else to go. I'm going to look for a room to rent . Pt denies SI/HI/VH/AH. Plan: CV Q 15 minute checks Increase to Seroquel 400 mg q.h.s. Continue trazodone 100 mg q.h.s. Continue Trileptal 300 mg b.i.d. Continue Atorvastatin 20 mg daily Continue Famotidine 40 mg daily Continue Losartan 25 mg daily Continue Metformin 500 mg b.i.d. Continue Januvia 50 mg daily Patient educated on: diagnosis, medication risk/benefits and therapeutic strategies Informed Consent: understands Reason for continued inpatient stay Substantial Risk for: stable for discharge Time Spent With Patient Time: Total time managing care of this patient today _20___ minutes.
[2023-11-28 15:00] VITALS: BP 133/67
[2023-11-28 20:00] VITALS: BP 124/87; PULSE 93; TEMP 36.6; O2SAT 96
[2023-11-28 20:21] LABS: Glucose, Whole Blood 107 mg/dL (60-115)
[2023-11-28] MEDS: QUEtiapine Fumarate 400 MG TABLET PO (22:36)
[2023-11-28] MEDS: traZODone HCL 100 MG TABLET PO (22:36)
[2023-11-29 08:26] VITALS: BP 110/69; PULSE 84; RESP 16; TEMP 36.3; O2SAT 97
[2023-11-29 08:59] LABS: Glucose, Whole Blood 117 mg/dL (60-115)
[2023-11-29] MEDS: OXcarbazepine 300 MG TABLET PO (09:20)
[2023-11-29] MEDS: SITagliptin Phosphate 50 MG TABLET PO (09:20)
[2023-11-29] MEDS: Atorvastatin Calcium 20 MG TABLET PO (09:21)
[2023-11-29] MEDS: Famotidine 20 MG TABLET 40 MG PO (09:21)
[2023-11-29] MEDS: metFORMIN HCl 500 MG TABLET PO (09:21)
[2023-11-29 09:25] VITALS: BP 110/69
[2023-11-29] MEDS: Naloxone HCl Nasal TAKE HOME 4 MG SPRAY 8 MG NOSTRILALT (09:25)
[2023-11-29] MEDS: Losartan Potassium 50 MG TABLET PO (09:25)
== END 2023-11-29 10:35 | disposition home or self-care (01) | DRG 753 ==
LOC: HO.ED 11-21 02:01 → HO.PM5 11-21 16:34
PROVIDERS: Admitting Provider Psychiatry & Neurology Psychiatry; Emergency Provider Internal Medicine; Visit Provider Psychiatry & Neurology Psychiatry
DX: F31.9 Bipolar disorder, unspecified (principal); R45.851 Suicidal ideations; F17.210 Nicotine dependence, cigarettes, uncomplicated; F43.10 Post-traumatic stress disorder, unspecified; Z71.6 Tobacco abuse counseling; Z79.84 Long term (current) use of oral hypoglycemic drugs; Z79.899 Other long term (current) drug therapy
CPT/HCPCS: 36415; 80053; 80061; 80307; 81001; 82565; 82947; 83036; 85025; 93005; 99285; S9485

== ENCOUNTER → 2023-11-21 14:53 | Outpatient (BNV) | payer MEDICAID, SELFPAY | PROVIDERS: Admitting Provider Psychiatry & Neurology Psychiatry; Emergency Provider Internal Medicine; Visit Provider Internal Medicine | DX: F14.10 Cocaine abuse, uncomplicated (principal) | CPT/HCPCS: 93010 ==

== ENCOUNTER → 2023-11-21 16:17 | Outpatient (BNV) | payer OTHER, SELFPAY | PROVIDERS: Admitting Provider Psychiatry & Neurology Psychiatry; Emergency Provider Internal Medicine; Visit Provider Psychiatry & Neurology Psychiatry | DX: F31.4 Bipolar disorder, current episode depressed, severe, without psychotic features (principal); F14.10 Cocaine abuse, uncomplicated; F43.11 Post-traumatic stress disorder, acute | CPT/HCPCS: 99231; 99232 ==

== ENCOUNTER 2023-12-30 23:08 | Inpatient (IN) | payer MEDICAID, SELFPAY ==
--- NOTE | 2023-12-30 | ECG_ITS ---
Test Reason : TACHYCARDIA Blood Pressure : / mmHG Vent. Rate : 125 BPM Atrial Rate : 125 BPM P-R Int : 138 ms QRS Dur : 066 ms QT Int : 332 ms P-R-T Axes : 066 050 017 degrees QTc Int : 479 ms Sinus tachycardia Possible Left atrial enlargement Borderline ECG When compared with ECG of 21-NOV-2023 14:53, Vent. rate has increased BY 53 BPM Referred By: Generic ED Physician Electronically Signed By:SONIYA NAVA
[2023-12-30 23:10] VITALS: BP 131/82; PULSE 137; RESP 18; TEMP 36.6; O2SAT 95; BMI 37.7
[2023-12-30 23:31] LABS: MANUAL DIFF FLAG NO
[2023-12-30 23:33] LABS: Basophils Absolute Auto 0.1 X10*3/uL (0.0-0.2); Basophils Percent Auto 0.3 % (0-2); Hematocrit 48.6 % (42.0-52.0); Hemoglobin 16.3 g/dl (14.0-18.0); Imm Gran Abs Auto 0.11 X10*3/uL (0.00-0.03); Imm Gran Pct Auto 0.6 % (0.0-0.4); Lymphocytes Absolute Auto 1.3 X10*3/uL (1.2-4.9); Lymphocytes Percent Auto 6.8 % (20-40); Mean Corpuscular HGB Conc 33.5 g/dl (31.0-36.0); Mean Corpuscular Hemoglobin 29.7 pg (27.0-33.0); Mean Corpuscular Volume 88.7 fL (80.0-98.0); Mean Platelet Volume 10.2 fL (9.4-12.4); Monocytes Absolute Auto 1.2 X10*3/uL (0.1-1.2); Monocytes Percent Auto 6.1 % (2-11); Neutrophils Percent Auto 86.2 % (45-73); Platelet Count 303 X10*3/uL (160-400); Red Blood Count 5.48 X10*6/uL (4.60-5.80); Red Cell Distribution Width 14.7 % (11.0-16.0); White Blood Count 19.6 X10*3/uL (4.8-10.8)
--- NOTE | 2023-12-30 23:47 | PC.NURSE ---
addendum to triage- patient states fully current with medications he was dc'ed with states uses [facility] for pharmacy. states some recent use of thc and cocaine last 2d [employer] no hallucinations present states contracts for safety presently. also states living with ex and theres some conflicts there.
[2023-12-30 23:51] LABS: Alanine Aminotransferase 30 U/L (0-40); Alkaline Phosphatase 94 U/L (39-117); Anion Gap 22 (12-20); Aspartate Amino Transferase 47 U/L (5-37); Bilirubin Total 1.1 mg/dL (0.0-1.0); Blood Urea Nitrogen 28 mg/dL (9-16); Calcium 10.3 mg/dL (8.4-10.2); Carbon Dioxide 16 mmol/L (22-29); Chloride 111 mmol/L (96-108); Creatinine Clr Calc Pharmacy 60.9; Estimated Glomerular Filt Rate 34; Ethanol < 10 mg/dL; Glucose Random 122 mg/dL (60-115); Potassium 3.7 mmol/L (3.3-5.1); Sodium 145 mmol/L (135-145); Total Protein 9.2 g/dL (6.5-8.0)
--- NOTE | 2023-12-31 | ECG_ITS ---
Test Reason : psych symptoms Blood Pressure : / mmHG Vent. Rate : 070 BPM Atrial Rate : 070 BPM P-R Int : 160 ms QRS Dur : 092 ms QT Int : 448 ms P-R-T Axes : 039 003 -37 degrees QTc Int : 483 ms Normal sinus rhythm Nonspecific T wave abnormality Prolonged QT Abnormal ECG When compared with ECG of 30-DEC-2023 23:16, Vent. rate has decreased BY [address] and T wave abnormality lateral leads Referred By: Gopal Dent Electronically Signed By:SONIYA NAVA
[2023-12-31 00:02] VITALS: BP 132/87; PULSE 122; RESP 20; TEMP 36.2; O2SAT 96
--- OUTSIDE RECORDS SUMMARY | 2023-12-31 00:54 | XMS_ITS | Continuity of Care Document ---
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 endorse feeling ready for discharge and commits to safety. I provided him with updated information around his appointments, which includes an intake at [facility] in [place] on August 13 at 10am for therapy, pscyhiatry and case management. He was also given a new patient packet for [facility] P[facility] and endorsed he would complete this form to schedule his first PCP appointment with them. . Discharge Information Case Management Discharge Plan : Case Management Discharge Plan Data 08/09/2022 10:23 EST Discharge Level of Care at Discharge Home/Longterm/Foster Care * Isaac Pérez RN: SIGN, VERIFY, PERFORM Event Display: Progress Note Hospital Authored Date: [id number] Patient: MICHELINE AMIN Age: 37 years Sex: Male : 1985 Associated Diagnoses: None Author: Isaac Pérez RN Findings Problems Problem 1 : Problem - 1 08/08/2022 8:00 EST Problem 1 Danger/self - suicidal ideation Goals, Problem 1 Micheline will maintain safety. Problem 1, Patient agrees to Attend groups, Demonstrate ability to care for self, Identify 2 goals for treatment, Identify 2 strengths, Increase ability to refrain from impulses to harm self, Take PRN medication as needed, Take scheduled medication, Work with Psychiatrist to find acceptable medication plan, Develop a safety plan for outpatient treatment, Verbalize ability to cope w/ anxiety using2 new skills, Rationally counter negative thoughts in a positive manner, Other: Alert staff if having urges to SH and/or SI Problem 1, Nursing Interventions Assess/observe regularly for signs of increasing agitation, Assess/observe regularly for signs of increasing anxiety, Encourage participation in groups, Explain unit rules clearly & honestly to pt, Monitor food and fluid intake, Monitor hygiene, Monitor nutrition, Monitor sleep, Offer medication as needed, Provide information about illness and recovery, Provide information about medication, Set limits - behavior that interferes w/healing environment, Review safety plan each shift, Meet regularly w/ pt -allow him/her to talk about concerns, Meet regularly w/ pt -allow him/her to talk about feelings, Assist patient to identify strengths . Narrative/Incidental Micheline appeared asleep in bed when the shift started. He slept for 6+ hours overnight without any concerns noted or verbalized. He remains safe on unit standard checks. He is on a VPP without any incidence of aggression or agitations observed. He is for discharge today at 10AM via cab at [facility] in [place], [place].. * Brenda Hoffman RN: MODIFY, SIGN, VERIFY, PERFORM Event Display: Progress Note Hospital Authored Date: Patient: MICHELINE AMIN Age: 37 years Sex: Male : 1985 Associated Diagnoses: None Author: Brenda Hoffman RN Findings Problems Problem 1 : Problem - 1 08/08/2022 8:00 EST Problem 1 Danger/self - suicidal ideation Goals, Problem 1 Micheline will maintain safety. Problem 1, Patient agrees to Attend groups, Demonstrate ability to care for self, Identify 2 goals for treatment, Identify 2 strengths, Increase ability to refrain from impulses to harm self, Take PRN medication as needed, Take scheduled medication, Work with Psychiatrist to find acceptable medication plan, Develop a safety plan for outpatient treatment, Verbalize ability to cope w/ anxiety using2 new skills, Rationally counter negative thoughts in a positive manner, Other: Alert staff if having urges to SH and/or SI Problem 1, Nursing Interventions Assess/observe regularly for signs of increasing agitation, Assess/observe regularly for signs of increasing anxiety, Encourage participation in groups, Explain unit rules clearly & honestly to pt, Monitor food and fluid intake, Monitor hygiene, Monitor nutrition, Monitor sleep, Offer medication as needed, Provide information about illness and recovery, Provide information about medication, Set limits - behavior that interferes w/healing environment, Review safety plan each shift, Meet regularly w/ pt -allow him/her to talk about concerns, Meet regularly w/ pt -allow him/her to talk about feelings, Assist patient to identify strengths Problem 1, Psychiatrist Interventions Evaluate medication, Order medication as appropriate, Supervise treatment Problem 1, Counselor Interventions Encourage participation in groups, Explain unit rules clearly & honestly to pt, Set limits - behavior that interferes w/healing environment Problem 1, Social Work Interventions Review discharge plans [employer] Comment: Problem 1 ADRYAN Guevara Problem 1, Start Date and Time 07/31/2022 14:48 Reviewed Plan With, Problem 1 Patient Patient Progression, Problem 1 Progressing . Narrative/Incidental Micheline was received on the unit in no cardiopulmonary distress no complains voiced. Physically well. He is on unit standard safety checks and is on a VPP with no incidence of aggression or agitation. He was calm and cooperative on approach by this communications writer, speech clear normal tone, rational. Thought process, logical and connected. Denies any suicidal or homicidal ideations, no delusions expressed. Denies ay anxiety or depression. No pain. Micheline quickly become loud stating I know you heard what happened and what I said and I am keeping on that I really hate that woman This communications writer redirected Micheline with which he was compliant. This communications writer continues to set limits with Micheline. He self presented for blood glucose check which was 117@1656, no insulin coverage needed. He stated to this communications writer Ms Pacheco, if I have ever done anything to offend you I am sorry . He at 100% of dinner and spent most of the shift watching TV with peers. Occasionally seen pacing with peer and being loud. He self presented for VS and HS medications which he took willingly. Micheline had a fair shift basic need met, nursing care and management ongoing. . Note * Sarah MOSES, Joi Ruiz: MODIFY, PERFORM Event Display: Discharge/Transfer Note Hospital Authored Date: Patient: ??MICHELINE AMIN ? Age:??37 Years?Sex:??Male?:??1985?? Patient Information Discharge Location: U Primary Care Physician: Not on Staff, PCP Admit Date/Time: 07/31/22 11:35 Discharge Disposition Discharge Disposition: ?? 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 _ Discharge Medications Carbamazepine (carBAMazepine 200 mg oral tablet)?200?Milligram?1?tablet?By Mouth?2 times a day Fluoxetine (FLUoxetine 40 mg oral capsule)?1?capsule?40?Milligram?By Mouth?Daily Insulin Lispro (insulin lispro 100 u/ml subcutaneous injection)?0?unit(s)?Subcutaneous Injection?3 times a day before meals?<150: zero insulin, ??151-200: 2 units, 201-250: 4 units,251-300: 6 units, 301-350: 8 units, > 350: 10 units & Call PCP Metformin (metFORMIN 500 mg oral tablet)?2?tab(s)?1,000?Milligram?By Mouth?Daily Pantoprazole (pantoprazole 40 mg oral delayed release tablet)?1?tab(s)?40?Milligram?By Mouth?Daily Quetiapine (QUEtiapine XR Tablet)?1,000?Milligram?By Mouth?Daily at bedtime ? Quality Measures Tobacco Use Treatment:? Substance Use Treatment Provided at Discharge:? Screening for Metabolic Disorders:?Lipid Panel:??Has Results for Lipid Panel within the last 12 months ? Inpatient Medications Medications (11) Active SCHEDULED: (7) Carbamazepine 200 mg Tablet (carBAMazepine 200 mg oral tablet) ??200 mg, By Mouth, 2 times a day Fluoxetine 20 mg Capsule (FLUoxetine 20 mg oral capsule) ??40 mg, By Mouth, Daily Insulin Lispro 100 units/mL Inj (3mL) (Insulin LISPRO Sliding Scale) ??2-10 units, Subcutaneous Injection, 3 times a day before meals Melatonin 3 mg Tablet (Melatonin Tablet) ??9 mg, By Mouth, Daily at bedtime Metformin 500 mg Tablet (metFORMIN 500 mg oral tablet) ??1,000 mg 2 each, By Mouth, Daily Pantoprazole 40 mg EC Tablet (pantoprazole 40 mg oral delayed release tablet) ??40 mg, By Mouth, Daily Quetiapine 400mg XR Tablet + QUEtiapine 200 mg XR (QUEtiapine XR Tablet) ??1,000 mg, By Mouth, Daily at bedtime CONTINUOUS: (0) PRN: (4) Acetaminophen 325 mg Tablet (Acetaminophen Tablet) ??650 mg, By Mouth, Every 4 hours Al hydroxide/Mg hydroxide/simethicone 200 mg-200 mg-20 mg/5 mL Susp UD (Maalox Plus Liquid) ??30 mL, By Mouth, Every 4 hours Bisacodyl 5 mg EC Tablet (Dulcolax Tablet) ??5 mg, By Mouth, 2 times a day Olanzapine 5 mg Tablet (Zyprexa Tablet) ??5 mg, By Mouth, Every 4 hours ? Allergies Allergies ?(Active and Proposed Allergies Only) NKA? (Severity: Unknown severity, Onset: Unknown) ? Hospital Course He did fairly well during his hospitalization, compliant with treatment. There were some??behavioral issues especially with??other patients, female patients that??did to be monitored and limits set.??He did not have any major problems with his medications.??[place] He is connected with appointments to [facility] in [place]??and he is going to be calling [facility] for a bed opening??when available. He has enough of his medications??that he is on right now. I strongly recommended, decreasing his Seroquel to 800 mg??at most. Currently he is on 1000 mg.??The reasons for this were discussed. ?? Objective Assessment and Plan Assessment:??Continue current regimen and plans.??Social work is pursuing [facility] bed availability ?? Discharge Planning:? Vital Signs?? Temperature: 97.7 DegF (08/08/22 22:39:00) Temperature Route: Tympanic (08/08/22 22:39:00) Pulse Rate:??92 bpm??High (08/08/22 22:39:00) Respiratory Rate: 18 br/min (08/08/22 22:39:00) Systolic Blood Pressure: 124 mm Hg (08/08/22 22:39:00) Diastolic Blood Pressure: 80 mm Hg (08/08/22 22:39:00) Mean Arterial Pressure: 95 mm Hg (08/08/22 22:39:00) Pulse Pressure: 44 mm Hg (08/08/22 22:39:00) Oxygen Saturation: 99 % (08/08/22 22:39:00) ? . Physical Exam From admission note: History of Present Illness Identifying information:?Micheline Amin is a 37-year-old gentleman with past medical history significant for??[id number] diabetes mellitus,??gastroesophageal reflux disease,??and??bipolar disorder, who initially presented to [facility] on??07/06/2022 for evaluation of suicidal ideation??with plans to shoot himself with??a firearm that he owns, recently hospitalized on the [facility]. ?? History of Present Illness:? Mr. Amin discharged from the hospital about a week ago, and??stayed with??a fellow patient??in her home. ?? It was weird, she is weird.?? I spazzed out yesterday morning, had an episode, and I made threats against myself.?? I felt suicidal, and I said??I had jump off a building. ?? He states that the week with her was very sexual, but something is wrong with her. ??We would have sex, and then walked to??[employer] to buy condoms.?? He reports that??for a day, he did not take his quetiapine medication and I would think??crazy shit.?? The first day I did not take it at all,??and if we rode by building,??I had envision myself jumping off. ?? Today he states that he is thinking about having plastic surgery, to??hide from the??white supremacist gang members who he believes are tracking him. ?? I want to change my appearance.?? I was thinking I could get my eyes moved to the side of??my head,??and then have the middle of my head turned into sharks head,??and I could get a few rows of teeth. ??I think they will see me??as a predator. ?? W guadalupe it was pointed out that that would make him??unique and perhaps easier to find, he said that Icould turn into a grizzly bear??and maul my attackers. ?? Patient is originally from??[place],??but traveled up to [place] in order to meet??a woman approximately 1 to 2 months ago.?? This woman never showed up and??he has been homeless??in [place] since.?? Micheline reports??that he became the target of [employer] gangs and felt cornered and trapped by the gang members who he believes were actively looking to kill him. He reported he became suicidal after he starting feeling that the gang??members were out??to get him and trying to kill him.?? With??crisis clinicians,??patient reported??suicidal ideation,??holding a loaded gun to hishead, before subsequently throwing the gun into the roy to find a mcfp. In the emergency department, had tachycardia with heart rate of 109, elevated blood pressure 147/89, but otherwise unremarkable. ??Labs demonstrated a mild leukocytosis with WBC 13.4, elevated bicarbonate level 19, anion gap of 19, but no additional electrolyte derangements or renal impairment. ??TSH within normal limits. ??Serum ethanol not detected. ??Urine toxicology was positive for cannabinoids and cocaine, but otherwise negative for barbiturates, benzodiazepines, amphetamines, and opiates. ??Virology testing was negative for COVID-19 by PCR. Patient was subsequently medically cleared and transferred to [facility]. ?? His outpatient medications include Seroquel, Prazosin, Tegretol and Trazodone. He states that he last took these medications at least one month prior and ran out since coming to [place].?? He reports thatthese medications have been helpful to him and he wants to get back on therapeutic doses. ?? Per Crisis [facility] dated 07/09/22, Micheline shared My life is heading in the wrong direction and I don't like it. I don't feel I have anything to live for. ??He also endorsed recent auditory hallucinations, hearing voices of his mother who in 2011 saying join us . He also endorsed command auditory hallucinations telling him to harm himself in the past, including on the day that he heldthe gun to his head just prior to ED arrival. ? Today's visit??prior to discharge. ??He was seen for this evaluation. ??The patient is alert, oriented and pleasant. ??Casually kempt. ??Normal speech. ??Good eye contact. ??Affect is appropriate andvaried. ??No signs of psychosis. ??No SI/HI upon inquiry. ??No abnormalities of gait. ??No musculoskeletal problems observed. ??Cognitively is intact. ??Judgment is intact Pending Results Hepatitis C RNA PCR Quant ordered on 08/07/2022 Home Health Face to Face ^HomeHealthFTF Results Blood Glucose Trend Glucose, POC:??137 mg/dL??High (08/09/22 08:24:00) Glucose, POC:??118 mg/dL??High (08/08/22 21:07:00) Glucose, POC:??117 mg/dL??High (08/08/22 16:56:00) Glucose, POC:??181 mg/dL??High (08/08/22 11:57:00) ? _ minutes spent on discharge * Paola Sullivan RN: PERFORM Event Display: Patient Education/Instruction Authored Date: [id number] Inpatient Adult Discharge Instructions [facility] Inpatient Psychiatry [address] [place] [address] Name: MICHELINE AMIN : 1985 Visit: 07/31/2022 11:35:00 Current Date: 08/09/2022 09:19 Account: [id number] Inpatient Adult Discharge Instructions We would like to thank you for allowing us to assist you with your healthcare needs. The following includes patient education materials and information regarding your injury/illness. Our entire staffstrives to provide an excellent experience for our patients and their families. PLEASE ENSURE YOU FOLLOW-UP PER THE INSTRUCTIONS BELOW! ?? YOUR OPINION IS IMPORTANT TO US! Please complete the survey you may receive by mail or email. Your feedback will be used to make improvements to the healthcare experiences of our patients and their families. Surveys are administered by [employer] ?? If further treatment with your primary care physician or another doctor is recommended, it is important for you to keep the appointment. Call your primary care physician or return to the Emergency Department immediately if your condition worsens, fails to improve, or new symptoms develop. If you need to find a doctor, you can call [facility] [employer] for a referral at [phone] or toll free at [phone]) or log in to [email or web address].. ?? You can view and manage your care through the patient portal or by using a health care daren of your choosing. [employer] is a website that allows you to securely view your medical information including your hospital discharge summary, office visit summaries, medications and follow-up visits. You can also request appointments, renew medications, and request access to your medical information using a health care daren of your choosing, or just ask a question. You can enroll at [email or web address] or register during your next office visit. You have been discharged from [facility] Inpatient Psychiatry, Patient Care Unit: MHU. If you have any questions regarding these instructions after you leave, please call us and we will be happy to assist you. [facility] Inpatient Psychiatry Your Care Team Attending Physician Price MOSES, Celestine Hodges Consulting Providers Price MOSES, Celestine Hodges; John Champion MD Discharging Providers Joi Smith MD Reason for Admission I had another episode. I spazzed out Your Diagnosis Cannabis use with psychotic disorder Bipolar disorder with psychotic features Diabetes mellitus Obese class II Prolonged QT interval Suicide attempt Chronic GERD Tests Performed Below is a partial list of the tests performed during your hospitalization. You may have had other tests and procedures not included in this list. Please discuss all test results with your provider. Alcohol Level Amphetamine Urine Screen Barbiturate Urine Screen Basic Metabolic Panel Benzodiazepine Urine Screen Cannabinoid Urine Screen CBC w/ Differential Cocaine Urine Screen COVID-19 (2019 Novel Coronavirus) PCR GLUCOSE POC Hepatic Function Panel Hepatitis C Ab HOLD BLUE TUBE HOLD GEL TUBE Opiate Screen Urine Primary Care Provider Not on Staff, PCP Advance Directive Health Care Proxy on File No Patient refuses to discuss Discharge Vitals Temperature: 97.7 DegF Height: 183 cm Pulse Rate:??92 bpm??High Weight: 128.8 kg Respiratory Rate: 16 br/min Body Mass Index:??38.46 kg/m2??Critical Systolic Blood Pressure: 124 mm Hg Body surface area: 2.56 Diastolic Blood Pressure: 80 mm Hg ?? Oxygen Saturation: 99 % ?? Studies Pending All tests and labs ordered during this hospital stay have been completed unless listed below. Please discuss all pending results with your provider listed above in these instructions. ?? Hepatitis C RNA PCR Quant What to do next Instructions From Your Doctor Discharge Orders Discharge Medications MICHELINE AMIN :1985 Visit Date:07/31/2022 Medications: Please continue your medications until treatment is completed or stopped by your provider. Medications not listed below should be discontinued. Discuss any questions related to medications with your provider. What How Much When Instructions Next Dose Changed Quetiapine (QUEtiapine XR Tablet) 1,000 Milligram Oral Daily at Bedtime 08/09 9pm Unchanged Carbamazepine (carBAMazepine 200 mg oral tablet) 1 tab(s) Oral Twice a day 08/09 9pm Unchanged Fluoxetine (FLUoxetine 40 mg oral capsule) 1 capsule Oral Daily 08/10 9am Unchanged Insulin Lispro (insulin lispro 100 u/ ml subcutaneous injection) 0 unit(s) Subcutaneous Injection 3 times a day before meals <150: zero insulin, ??151-200: 2 units, 201-250: 4 units, 251-300: 6 units, 301- 350: 8 units, > 350: 10 units & Call PCP ?? 08/09 11:30 am Unchanged Metformin (metFORMIN 500 mg oral tablet) 2 tab(s) Oral Daily 08/09 9pm Unchanged Pantoprazole (pantoprazole 40 mg oral delayed release tablet) 1 tab(s) Oral Daily 08/10 9am Test Results Below is a partial list of the most recent Laboratory test results done prior to this discharge. You may have had other tests and procedures not included in this list. Please discuss all test resultswith your provider. Alcohol Level (07/30/2022) ???Ethanol, Serum or Plasma - NONE DETECTED Amphetamine Urine Screen (07/30/2022) ???Amphetamine Screen, Urine - NONE DETECTED Barbiturate Urine Screen (07/30/2022) ???Barbiturate Screen, Urine - NONE DETECTED Basic Metabolic Panel (07/30/2022) ???Sodium - 139 mmol/L???Potassium - 3.6 mmol/L???Chloride - 106 mmol/L???Bicarbonate Level - 22 mmol/L???Anion Gap - 11???Glucose Level - 140 mg/dL???BUN - 8 mg/dL???Creatinine-Blood - 0.9 mg/dL???Estimated GFR Creatinine - 108 ML/MIN/1.73 M2???Calcium - 9.1 mg/dL Benzodiazepine Urine Screen (07/30/2022) ???Benzodiazepine Screen, Urine - NONE DETECTED Cannabinoid Urine Screen (07/30/2022) ???Cannabinoid Screen, Urine - POSITIVE CBC w/ Differential (07/30/2022) ???WBC - 9.7 k/mm3???RBC - 4.72 m/mm3???Hgb - 14.1 Gm/dL???Hct - 42.6 %???MCV - 90.3 femtoliters???MCH - 29.9 pg???MCHC - 33.1 g/dL???Platelet Count - 331 k/mm3???RDW-SD - 46.5 femtoliters???MPV - 9.7 femtoliters???Nucleated RBC (Automated) - 0.0 #/100 WBC'S???Abs. NRBC - 0.0 k/mm3???Abs. Neut - 5.5 k/mm3???Abs. Lymph - 3.3 k/mm3???Abs. [place] - 0.6 k/mm3???Abs. Eo - 0.2 k/mm3???Abs. Baso - 0.0 k/mm3???Neut % - 56.6 %???Lymph % - 34.3 %???[place] % - 5.7 %???Eos % - 2.5 %???Baso % - 0.4 %???Imm Gran- 0.5 %???Abs. Imm Gran - 0.1 k/mm3 Cocaine Urine Screen (07/30/2022) ???Cocaine Metabolite Screen, Urine - NONE DETECTED COVID-19 (2019 Novel Coronavirus) PCR (08/05/2022) ???COVID-19 PCR Specimen Source - NASAL???COVID-19 PCR Result - NEGATIVE GLUCOSE POC (08/09/2022) ???Glucose, POC - 137 mg/dL Hepatic Function Panel (08/01/2022) ???Protein, Total - 6.6 Gm/dL???Albumin - 3.5 Gm/dL???Alkaline Phosphatase - 92 units/L???AST (SGOT) - 28 units/L???ALT (SGPT) - 46 units/L???Bilirubin, Total - 0.2 mg/dL???Bilirubin, Direct - 0.1 mg/dL???Bilirubin, Indirect - 0.1 mg/dL Hepatitis C Ab (08/01/2022) ???Hepatitis C Ab - Reactive by screening EIA. HOLD BLUE TUBE (07/30/2022) ???Hold Blue Top - SPECIMEN DISCARDED AFTER 4 HOURS. HOLD GEL TUBE (07/30/2022) ???Hold Gel Top - SPECIMEN DISCARDED AFTER 1 WEEK Opiate Screen Urine (07/30/2022) ???Opiate Screen, Urine - NONE DETECTED Allergies (NKA means No Known Allergies) NKA Problems Active Problems??(7) Bipolar disorder with psychotic features?? Cannabis use with psychotic disorder?? Cocaine use disorder?? Diabetes mellitus?? Obese class II?? Prolonged QT interval?? Suicide attempt?? Education Materials Below is the list of Educational Leaflet Providered with your Discharge Instructions. Valuables and Belongings I fully understand and agree that [facility] accepts no responsibility for all my personal property including clothing, toilet articles, radios, jewelry, dentures, hearing aids, rings, money, or any other property that is in my possession or is brought to me after admission. I understand certain valuables may be placed in a hospital safe for a short period of time. I understand that the hospital is not liable for loss or damage due to accident, fire, or other natural occurrence while said property is in the safe. I accept full responsibility for any personal property that I keep with me, and will not hold the hospital responsible in case of loss or disappearance. I acknowledge that i have been encouraged to send valuables and belongings home. ?? Date for Pt to Sign Valuables/Belongings: 07/31/22 11:38:00 ?? Other Discharge Information ? Pulmonary Rehab Status?? Pulmonary Rehab Discharge Status?? Respiratory Rate: 16 br/min ?? Psychiatric Discharge Plan?? Discharge Plan Psych?? Clinics?? Recovery Homes/Shelters?? Other Agency?? Crisis Services?? Level of Care at Discharge: Home/Family/SelfCare/RestHome/Group Home/Sub AbuseTx ([facility]) Clinic Contact: Clinical and Support [id number] [facility] [address] [place], [place] [address]m: [phone]: [phone] FAX A COPY OF DISCHARGE PAPERWORK Recovery Homes Contact: Steven Carter[address] [place] [address] 327[address]q: [phone] Physician/PCP: GAEL [place] [id number] [facility] [address], [place] [phone] Psychiatric Crisis Services: For your area are available 24 hours every day, by calling: Discharge Plan Additional Information: Joana is discharging via cab and going to [facility] in [place], [place]. He is on a waitlist for [facility] also in [place]. He has referral for PCP, therapy and psychiatry. Clinic Date/Time: Referral submitted, please call to schedule your intake for therapy and psychiatry. [facility] Date/Time: Please continue to call weekly to secure your position on the [facility] waitlist. Appointment Date/Time: Joana will complete intake packet and then schedule his first PCP appointment. Crisis Services: ([facility]) Mode of Transportation: Taxi ?? Other Home/Group Home Contact: [id number] [place] [address] [phone] ?? Crisis Service Instructions: Please use as needed. Arranged Transport Date/Time: 08/09/22 10:00:00 ?? Other Home/Group Home Date/Time: Micheline is [facility] directly to this [facility]. ? Common Emergency Awareness Tips IS IT A STROKE? Act FAST and Check for these signs: FACE Does the face look uneven? ARM Does one arm drift down? SPEECH Does their speech sound strange? TIME Call at any sign of stroke ?? Heart Attack Signs Chest discomfort: Most heart attacks involve discomfort in the center of the chest and lasts more than a few minutes, or goes away and comes back. It can feel like uncomfortable pressure, squeezing, fullness or pain. Discomfort in upper body: Symptoms can include pain or discomfort in one or both arms, back, neck, jaw or stomach. Shortness of breath: With or without discomfort. Other signs: Breaking out in a cold sweat, nausea, or lightheaded. Remember, MINUTES DO MATTER. If you experience any of these heart attack warning signs, call to get immediate medical attention! ?? Smoking can increase your chances of developing chronic health problems and can cause harmful effects to other family members in your house. If you smoke, you are strongly encouraged to quit. Please call [facility] at [phone] or [phone] ([phone]) or log in to [email or web address] for referrals to smoking cessation programs. ?? The National Suicide Prevention Hotline is available 30/12 if you or someone you know needs to find a reason to keep living. By calling 5-606-056-[employer] (3744) you'll be connected to a skilled, trained counselor at a crisis center in your area. INPATIENT DISCHARGE INSTRUCTIONS SIGNATURE PAGE MICHELINE AMIN Location:[facility] Inpatient Psychiatry Registration Date and Time:07/31/2022 11:35 EST Primary Care Physician: Not on Staff, PCP I MICHELINE AMIN, have received the above patient education materials/instructions and have verbalized understanding. If ambulance or transport services are being used I further acknowledge being given a choice of service. ?? If you need to contact me, please call me at this number: . Patient/Respiratory Practitioner Name: Patient/Respiratory Practitioner Signature: Relationship to Patient: Witness Name/Signature: Date: * Olga Sinclair: PERFORM Event Display: Discharge/Transfer Note Hospital Authored Date: [id number] Psychiatric Discharge Plan Entered On: 08/08/2022 14:55 EST Performed On: 08/08/2022 14:32 EST by Olga Sinclair Discharge Plan Level of Care at Discharge : Home/Family/SelfCare/RestHome/Group Home/Sub AbuseTx ([facility]) Discharge Plan Additional Information : Joana is discharging via cab and going to [facility] in [place], [place]. He is on a waitlist for [facility] also in [place]. He has referral for PCP, therapy and psychiatry. Mode of Transportation : Taxi Arranged Transport Date/Time : 08/09/2022 10:00 EST Olga Sinclair - 08/08/2022 14:32 EST Clinics Clinic Contact : [facility] [address] [place] [address] p: [phone] f: [phone] PLEASE FAX A COPY OF DISCHARGE PAPERWORK Clinic Date/Time : Referral submitted, please call to schedule your intake for therapy and psychiatry. Olga Sinclair - 08/08/2022 14:32 EST [facility] Contact : [address] [address] p: [phone] [facility] Date/Time : Please continue to call weekly to secure your position on the [facility] waitlist. Other Home/Group Home Contact : [place] [address] Other Home/Group Home Date/Time : Micheline is discharging directly to this [facility]. Olga Sinclair - 08/08/2022 14:32 EST Other Physician/PCP : [place] [address] Appointment Date/Time : Joana will complete intake packet and then schedule his first PCP appointment. Olga Sinclair - 08/08/2022 14:32 EST Crisis Services Psychiatric Crisis Services : For your area are available 24 hours every day, by calling: Crisis Services : ([facility]) Crisis Service Instructions : Please use as needed. Olga Sinclair - 08/08/2022 14:32 EST Patient Care team information Care Team Personnel Name: Not on Staff, PCP Position: [facility] Physician (General Medicine) Member Role: PCP Name: Anam Calabrese RN Position: [facility] ED RN W/OE and Tasks Member Role: Patient Care Provider Name: Ethan Cooney MD Position: [facility] ED Medicine MD Member Role: ED Attending Physician Address: Address: [address] [place] [id number]- Name: Kelin Mckoy Position: [facility] ED OA Charge Member Role: ED Associate Care Team Related Persons Name: BRIANA GOODMAN Address: home UNKNOWN UNKNOWN
--- OUTSIDE RECORDS SUMMARY | 2023-12-31 00:54 | XMS_ITS | Continuity of Care Document ---
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 k/mm3 (11/15/23) Abs. Imm Gran: 0.1 k/mm3 (11/15/23) Abs. Lymph: 2.2 k/mm3 (11/15/23) Abs. Elmore: 1.2 k/mm3 (11/15/23) Abs. Neut:??14.5 k/mm3??High (11/15/23) Abs. NRBC: 0 k/mm3 (11/15/23) Amphetamine Screen, Urine: NONE DETECTED (11/16/23) Anion Gap:??20??High (11/15/23) Barbiturate Screen, Urine: NONE DETECTED (11/16/23) Baso %: 0.2 % (11/15/23) Benzodiazepine Screen, Urine: NONE DETECTED (11/16/23) Bicarbonate Level:??17 mmol/L??Low (11/15/23) BUN:??25 mg/dL??High (11/15/23) Calcium: 9.4 mg/dL (11/15/23) Cannabinoid Screen, Urine: POSITIVE Abnormal (11/16/23) Chloride: 103 mmol/L (11/15/23) Cocaine Metabolite Screen, Urine: POSITIVE Abnormal (11/16/23) COVID-19 by RT-PCR: NEGATIVE (11/15/23) Creatinine-Blood: 1.19 mg/dL (11/15/23) Eos %: 0 % (11/15/23) Est Creatinine Clearance: 89.47 mL/min (11/15/23) Estimated GFR Creatinine: 80 ML/MIN/1.73 M2 (11/15/23) Ethanol, Serum or Plasma: NONE DETECTED (11/15/23) Glucose Level:??154 mg/dL??High (11/15/23) Glucose, POC: 93 mg/dL (11/16/23) Hct:??38.1 %??Low (11/15/23) Hgb:??12.1 Gm/dL??Low (11/15/23) Imm Gran: 0.7 % (11/15/23) Lymph %:??12.1 %??Low (11/15/23) MCH: 28.9 pg (11/15/23) MCHC:??31.8 g/dL??Low (11/15/23) MCV: 90.9 femtoliters (11/15/23) Elmore %: 6.5 % (11/15/23) MPV: 10.6 femtoliters (11/15/23) Neut %:??80.5 %??High (11/15/23) Nucleated RBC (Automated): 0 #/100 WBC'S (11/15/23) Opiate Screen, Urine: NONE DETECTED (11/16/23) Platelet Count: 266 k/mm3 (11/15/23) Potassium:??3.5 mmol/L??Low (11/15/23) RBC:??4.19 m/mm3??Low (11/15/23) RDW-SD:??50.1 femtoliters??High (11/15/23) Sodium: 140 mmol/L (11/15/23) TSH: 2.47 uIU/mL (11/15/23) WBC:??18.1 k/mm3??High (11/15/23) Diagnostic Results Result type:?ECG 12-Lead Result date:?November 15, 2023 18:53 EDT Result status:?Auth (Verified) Result title:?12 Lead ECG Performed by:?Lance Allan MD on November 15, 2023 18:53 EDT Verified by:?Lance Allan MD on November 15, 2023 18:53 EDT Encounter info:?[id number], [facility], Emergency, 11/15/2023 -?? Contributor system:?MUSE ?? Attachments: November 15, 2023 18:53 EDT - [id number] ?? * Final Report * ?? ECG 12-Lead Please click on pdf link to open report ?? [id number] Ventricular Rate: 83 ??BPM Atrial Rate: 83 ??BPM P-R Interval: 148 ??ms QRS Duration: 80 ??ms Q-T Interval: 438 ??ms QTC Calculation(Bazett): 514 ??ms P Hurley: 69 ??degrees R Hurley: 39 ??degrees T Hurley: 23 ??degrees Normal sinus rhythm Possible Left atrial enlargement Prolonged QT Abnormal ECG When compared with ECG of 12-JUL-2022 17:01, QT has lengthened Confirmed by Lance Allan ([id number]) on 11/16/2023 7:22:51 AM ?? [place]: Lance Allan Patient Care team information Care Team Personnel Name: Not on Staff, PCP Position: S Physician (General Medicine) Member Role: PCP Care Team Related Persons Name: BRIANA GOODMAN Address: home UNKNOWN UNKNOWN
--- OUTSIDE RECORDS SUMMARY | 2023-12-31 00:54 | XMS_ITS | Continuity of Care Document ---
Author Organization [facility] ter Address [address] [place] [id number]- Care Team Providers Care Search Lead Name Role Phone Not on Staff, PCP Primary Care Physician Unavail able Encounter [facility] Date(s): 07/06/22 - 07/09/[address] [address]- Encounter Diagnosis Suicidal ideation(Final) - 07/07/22 Discharge Disposition: Transfer to [facility] Facility Attending Physician: Melissa Kennedy MD Admitting Physician: Melissa Kennedy MD Referring Physician: Not on Staff, Referring MD Allergies, Adverse Reactions, Alerts No Known Allergies Medications Benztropine = 1 mg, By Mouth, Daily at bedtime, 0 Refills, Maintenance, 07/09/22 20:36:00 EST, Partial fill upon patient request if the prescription is for a schedule II opioid drug. Start Date: 07/09/22 Status: Ordered carBAMazepine 200 mg oral tablet 200 mg, 1, tablet, By Mouth, 2 times a day, Refills 0, Maintenance, 07/09/22 20:34:00 EST, Partial fill upon patient request if the prescription is for a schedule II opioid drug. Start Date: 07/09/22 Status: Ordered Ibuprofen Tablet 400 mg, Tablet, By Mouth, Every 8 hours, PRN for Pain , Moderate, STAT, 07/06/22 20:31:00 EST Start Date: 07/06/22 Stop Date: 07/09/22 Status: Discontinued Insulin Lispro See Instructions, Subcutaneous Infusion 100units/ml. 1-10units sliding scale 4 times a day. Before meals and at bedtime, 0 Refills, Maintenance, 07/09/22 20:39:00 EST, Partial fill upon patient request if the prescription is for a schedule II opioid d... Start Date: 07/09/22 Status: Ordered Metformin = 1,000 mg, By Mouth, Daily in AM, with meals, 0 Refills, Maintenance, 07/09/22 20:30:00 EST, Partial fill upon patient request if the prescription is for a schedule II opioid drug. Start Date: 07/09/22 Status: Ordered mirtazapine 7.5 mg oral tablet 1 tablet = 7.5 mg, By Mouth, Daily at bedtime, 0 Refills, Maintenance, 07/09/22 20:22:00 EST, Partial fill upon patient request if the prescription is for a schedule II opioid drug. Start Date: 07/09/22 Status: Ordered Narcan 4 mg/0.1 mL nasal spray = 4 mg, Inhalation, 0 Refills, Maintenance, 07/09/22 20:36:00 EST, Partial fill upon patient request if the prescription is for a schedule II opioid drug. Start Date: 07/09/22 Status: Ordered Pantoprazole = 40 mg, By Mouth, Daily, 0 Refills, Maintenance, 07/09/22 20:35:00 EST Start Date: 07/09/22 Status: Ordered prazosin 5 mg oral capsule 5 mg, Capsule, By Mouth, 07/08/22 21:00:00 EST Start Date: 07/08/22 Stop Date: 07/08/22 Status: Completed prazosin 5 mg oral capsule 5 mg, 1, capsule, By Mouth, Daily at bedtime, Refills 0, Maintenance, 07/09/22 20:23:00 EST, Partial fill upon patient request if the prescription is for a schedule II opioid drug. Start Date: 07/09/22 Status: Ordered Seroquel See Instructions, 600 mg By Mouth daily at bedtime., Refills 0, Maintenance, 07/09/22 20:25:00 EST,Instructions Replace Required Details, Partial fill upon patient request if the prescription is fora schedule II opioid drug. Start Date: 07/09/22 Status: Ordered Seroquel See Instructions, PRN, 3 T (150 mg) By Mouth as needed. Insomnia., Refills 0, Maintenance, Insomnia, 07/09/22 20:28:00 EST, Instructions Replace Required Details, Partial fill upon patient request ifthe prescription is for a schedule II opioid drug. Start Date: 07/09/22 Status: Ordered tiZANidine 2 mg oral capsule 1 capsule = 2 mg, By Mouth, 3 times a day, PRN Spasm, 0 Refills, Maintenance, 07/09/22 20:32:00 EST, Partial fill upon patient request if the prescription is for a schedule II opioid drug. Start Date: 07/09/22 Status: Ordered Trazodone = 50 mg, By Mouth, Daily at bedtime, 0 Refills, Maintenance, 07/09/22 20:34:00 EST, Partial fill upon patient request if the prescription is for a schedule II opioid drug. Start Date: 07/09/22 Status: Ordered Problem List Condition Confirmation Course Effective Dates Status Health St atus Informant Obese class II Confirmed Active Vital Signs Most recent to oldest [Reference Range]: 1 2 3 Oxygen Saturation [94-100 %] 100 % (07/09/22 4:01 PM) 99 % (07/08/22 4:00 PM) 95 % (07/07/22 7:50 PM) Pulse Rate [55-90 bpm] 82 bpm (07/09/22 4:01 PM) 79 bpm (07/08/22 4:00 PM) 85 bpm (07/07/22 7:50 PM) Blood Pressure [90-138/55-84 mm Hg] 135/95mm Hg (07/09/22 4:01 PM) 131/75mm Hg (07/08/22 8:02 PM) 124/72mm Hg (07/08/22 4:00 PM) Respiratory Rate [16-30 br/min] 18 br/min (07/09/22 4:01 PM) 18 br/min (07/08/22 4:00 PM) 16 br/min (07/08/22 12:00 PM) Temperature [96.8-100.4 DegF] 97.4 DegF (07/09/22 4:01 PM) 97.9 DegF (07/08/22 4:00 PM) 98.8 DegF (07/07/22 7:50 PM) Mode of Delivery (Oxygen) Room air (07/09/22 4:01 PM) Room air (07/08/22 4:00 PM) Room air (07/07/22 7:50 PM) Blood pressure sites Arm, right (07/09/22 4:01 PM) Arm, left (07/07/22 7:50 PM) Arm, left (07/07/22 3:13 PM) Temperature Route Oral (07/09/22 4:01 PM) Oral (07/08/22 4:00 PM) Oral (07/07/22 7:50 PM) EKG study * Event Display: ECG 12-Lead Authored Date: Please click on pdf link to open report * Event Display: ECG 12-Lead Authored Date: Ventricular Rate: 74 BPM Atrial Rate: 74 BPM P-R Interval: 158 ms QRS Duration: 84 ms Q-T Interval: 394 ms QTC Calculation(Bazett): 437 ms P Hendley: 29 degrees R Hendley: 9 degrees T Hendley: -3 degrees Normal sinus rhythm Normal ECG When compared with ECG of 06-JUL-2022 21:04, QT has shortened Confirmed by IVETTE GOFF ([id number]) on 07/09/2022 1:44:01 PM [place]: IVETTE GOFF * Event Display: ECG 12-Lead Authored Date: [id number] Please click on pdf link to open report * Event Display: ECG 12-Lead Authored Date: Ventricular Rate: 95 BPM Atrial Rate: 95 BPM P-R Interval: 138 ms QRS Duration: 78 ms Q-T Interval: 408 ms QTC Calculation(Bazett): 512 ms P Hendley: 0 degrees R Hendley: 21 degrees T Hendley: 8 degrees Normal sinus rhythm Prolonged QT Abnormal ECG No previous ECGs available Confirmed by FRITZ AVALOS ([id number]) on 07/08/2022 9:38:14 PM [place]: FRITZ AVALOS Patient Care team information Care Team Personnel Name: Not on Staff, PCP Position: [facility] Physician (General Medicine) Member Role: PCP Name: *[facility], ED Attending Position: [facility] ED Attendings Patient Name: Felicita Watkins RN Position: [facility] ED RN W/OE and Tasks Member Role: Patient Care Provider Name: Melissa Kennedy MD Position: [facility] ED Medicine MD Member Role: ED Attending Physician Address: Address: [address] [place] [id number]
--- OUTSIDE RECORDS SUMMARY | 2023-12-31 00:54 | XMS_ITS | Continuity of Care Document ---
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 Doxycycline Oral Tablet?? Valuables and Belongings I fully understand and agree that [facility] accepts no responsibility for all my personal [...] to send valuables and belongings home. ?? Deposit/Withdrawal: Deposit Money/Amount: 0 Date for Pt to Sign Valuables/Belongings: 07/09/22 20:19:00 ?? Other Discharge Information ? Pulmonary Rehab Status?? Pulmonary Rehab Discharge Status?? Respiratory Rate: 16 br/min Respiratory Rate: 16 br/min ?? Psychiatric Discharge Plan?? Discharge Plan Psych?? Other Agency?? Crisis Services?? Level of Care at Discharge: Home/Family/SelfCare/RestHome/[facility] ([facility]) Other Agency Contact: Department of Transitional AssistanceATTN: [place] FAX: [phone] Psychiatric Crisis Services: For your area are available 24 hours every day, by calling: Discharge Plan Additional Information: You are discharging today at the expiration of your 3-Day Notice. You currently have no providers. You have been referred to many substance abuse programs and currently there are no beds available. You have been given contact numbers. Other Comments: DTA has requested your discharge summary. Crisis Services: [facility] [phone] Mode of Transportation: Self ? Common Emergency Awareness Tips IS IT [...] are strongly encouraged to quit. Please call [facility] at [phone] or [phone] ([phone]) or log in to [email or web address] for referrals to smoking cessation programs. ?? The National Suicide Prevention Hotline is available 30/12 if you or someone you know needs to find a reason to keep living. By calling 6-924-894-Brevado (7373) you'll be connected to a skilled, trained counselor at a crisis center in your area. INPATIENT DISCHARGE INSTRUCTIONS SIGNATURE PAGE MICHELINE AMIN Location:[facility] Inpatient Psychiatry Registration Date and Time:07/09/2022 19:46 EST Primary Care Physician: Not on Staff, PCP I MICHELINE AMIN, have received the above patient education materials/instructions and have verbalized understanding. If ambulance or transport services are being used I further acknowledge being given a choice of service. ?? If you need to contact me, please call me at this number: . Patient/Motion Picture Actor Name: Patient/Motion Picture Actor Signature: Relationship to Patient: Witness Name/Signature: Date: * Silvano Brambila RN: PERFORM Event Display: Patient Education Leaflets Authored Date: [id number] Impetigo ?? [id number] Impetigo Impetigo is a common bacterial infection of the skin that can appear on many parts of the body. It can??happen to anyone, of any age, but is more common in children age 2 to 5 years old. Causes The skin normally has bacteria on it. Impetigo usually starts when there is a break in the skin, such as from scratching, an insect bite, a scrape, or other skin problems The bacteria can then invadethe skin and cause an infection. Sometimes, impetigo will start on skin that is not injured. Impetigo is very contagious. So once there is an infection, it needs to be treated so it doesn't get worse, spread to other areas, or spread to other people. Impetigo can easily be passed to other family members, friends, schoolmates, or co-workers. It spreads through close contact and scratching, r ubbing, or touching an infected area. ?? Symptoms There is often a skin injury like a scratch, scrape, or insect bite that may have gone unnoticed before the infection began. Symptoms of impetigo include: ??? Red, inflamed area or rash ??? One or many red bumps ??? Bumps that turn into blisters filled with yellow fluid or pus ??? Blisters that break or leak, causing honey-colored crusting or scabbing over the area ??? Skin sores that spread to other surrounding areas of the body, or to other people ?? Home care These guidelines will help you care for your infection at home. Wound care ??? Clean the area several times a day. But, don???t scrub it. The best way to clean the area is tosoak the sores in warm, soapy water until they get soft enough to be wiped away. This will help remove the crust that forms from the dried liquid. In areas that you can???t soak, like the mouth or face, you can put a clean, warm washcloth over the infected are for 5 to 10 minutes at a time, until the scabs soften enough to remove. Be sure to clean this washcloth before reusing it, and wash your hands well with soap and water. ??? Cover sores with a nonstick bandage or dressing. This will help catch drainage, prevent scratching, and prevent spreading the infection. ??? Trim fingernails, if needed, to prevent scratching. Picking at the sores may leave a scar. ??? If the infection is on or around your lips, don't lick or chew on the sores. This will make the infection worse. Preventing spread Follow these additional steps to limit the spread of infection to other parts of the body and to other people: ??? Wash your hands and your child???s hands often with soap and water. ??? Don't have direct qgun-ug-oqrg contact with other people. ??? Don't touch or scratch the sores. Keep the sores covered. ???Don't??share??the infected person???s??personal items, such as washcloths, towels, pillows, sheets,or clothes with others. ??? Wash the infected person's clothing, sheets, towels and other personal items in hot, soapy water. Don't wash them with items that are used by other household members. ??? Disinfect frequently touched surfaces, like doorknobs and counters. Medicines ??? You can use??yxjm-esf-ttuyxea medicine as directed based on age and weight??for pain,fever, fussiness, or discomfort, unless another medicine was prescribed. In infants ages 6 months and older, you may use ibuprofen??or??acetaminophen. If you or your child??has chronic liver or kidney disease or ever had a stomach ulcer or gastrointestinal bleeding, talk with your healthcare provider before using these medicines. Also talk with your provider if your child??is taking blood-thinnermedicines. ??? Don't give aspirin to your child. Aspirin should never be used in children ages 18 and younger who are ill with a fever. A condition called Carmen syndrome may develop that can cause josue re??disease or .? Impetigo is often treated with antibiotic topical creams, lotions, or ointments. Apply these as directed by your healthcare provider. ??? If you were given??oral??antibiotics, take them as directed by your healthcare provider until they are used up. It's important to finish the antibiotics even if the wound looks better to make sure the infection has cleared. ?? Follow-up care Follow up with your healthcare provider if the sores continue to spread after 3 days of treatment. It will take about 7 to 10 days to heal completely. Your child should stay out of school and sports until completing 2 full days of antibiotic treatment and the rash is clearing. When to get medical advice Call your healthcare provider right away if any of the following occur: ??? Fever of 100.4??F (38??C) or higher, or as advised by your provider ??? Increased amounts of fluid or pus coming from the sores ??? Increasing number of sores or spreading areas of redness after 2 days of treatment with antibiotics ??? Increasing swelling or pain ??? Loss of appetite or vomiting ??? Abnormal drowsiness, weakness, or change in behavior ?? Last Reviewed Date: 2021 ?? 4351-5118 [employer]. All rights reserved. This information is not intended as a substitute for professional medical care. Always follow your healthcare professional's instructions. ?? * Silvano Brambila RN: PERFORM Event Display: Patient Education Leaflets Authored Date: [id number] Understanding Impetigo ?? 08201 Understanding Impetigo Impetigo is a common bacterial infection of the skin. It most often affects the face, arms, and legs. But it can appear on any part of the body. Anyone can have it, regardless of age. But it's most common in children. Impetigo is very contagious. This means it spreads easily to other people. ??How to say it nsp-dzy-PB-deborah ?? What causes impetigo? Many types of bacteria live on normal, healthy skin. The bacteria usually don???t cause problems. Impetigo happens when bacteria enter the skin through a scratch, break, sore, bite, or irritated spot. They then begin to grow out of control, leading to infection. The 2 most common bacteria causing impetigo are Staphylococcus and Streptococcus. In some cases, impetigo appears on skin that has no visible break. It may be more likely to occur on skin that has another skin problem, such as eczema. It may also be more common after a cold or other virus. ?? Symptoms of impetigo Symptoms of this problem include: ??? Small, fluid-filled blisters on the skin that may itch, ooze,or crust ??? A yellow, honey-colored crust on the infected skin ??? Skin sores that spread with scratching ??? An itchy rash that spreads with scratching ??? Swollen lymph nodes ?? Treatment for impetigo The goal is to treat the infection and prevent it from spreading to others. ??? You'll likely be given an antibiotic to treat the infection. This may be a cream or ointment to put on your skin. You usually need to use the cream or ointment for about 5 days. If the infection is severe or spreading, you may be given antibiotic medicine to take by mouth. Be sure to use this medicine as directed. Don't stop using it until you're told to stop, even if your skin gets better. If you stop too soon, theinfection may come back and be harder to treat. ??? Try not to scratch or pick at your sores. It may help to cover affected areas with a bandage. ??? To prevent spreading the infection, wash your hands with soap and clean, running water for at least 20 seconds before and after touching your skin. .Wash your hands frequently during the day. ??? Don't share personal items, towels, clothes, pillows, and sheets with others. After each use, wash these items in hot water. ??? Clean the affected skinseveral times a day. Don???t scrub. Instead, soak the area in warm, soapy water. This will help jono ve the crust that forms. For places that you can't soak, such as the face, place a clean, warm (nothot) washcloth on the affected area. Use a new washcloth and towel each time. ?? When to call your healthcare provider Call your healthcare provider right away if you have any of these: ??? Fever of 100.4??F (38??C) orhigher, or as advised by your provider ??? More sores or more spreading areas of redness after 2 days of treatment with antibiotics ??? More swelling or pain ??? More fluid or pus coming from the sores ??? Abnormal drowsiness, weakness, or change in behavior ??? Loss of appetite or vomiting ?? Last Reviewed Date: 2021 ?? 5243-3264 [employer]. All rights reserved. This information is not intended as a substitute for professional medical care. Always follow your healthcare professional's instructions. ?? * Patty CORNELIUS, Silvano: PERFORM Event Display: Patient Education Leaflets Authored Date: [id number] Doxycycline Oral Tablet ?? [address] Doxycycline Oral Tablet Brands: Adoxa, Avidoxy Uses For treating bacterial infection. ?? Instructions Take the medicine with 250 mL (1 cup) of water. Take on empty stomach - 1 hour before or 2 hours after eating. Sit or stand upright for 30 minutes after taking the medicine. Do not lie down. Keep the medicine at room temperature. Avoid heat and direct light. Do not take any antacid or vitamins with magnesium, calcium, aluminum, or iron for 2 hours before and 2 hours after taking this medicine. This medicine can make you sensitive to the sun. Use sunscreen or protective clothing when in sun. If you forget to take a dose on time, take it as soon as you remember. If it is almost time for thenext dose, do not take the missed dose. Return to your normal schedule. Do not take 2 doses at one time. Drug interactions can change how medicines work or increase risk for side effects. Tell your healthcare providers about all medicines taken. Include prescription and nlnj-lbs-ijwrmoh medicines, vitamins, and herbal medicines. Speak with your doctor or pharmacist before starting or stopping any medicine. Keep using this medicine for the full number of days that it is prescribed. Do not stop the medicine even if you start to feel better. This medicine can cause permanent change in teeth color in children. ?? Cautions Tell your doctor and pharmacist if you ever had an allergic reaction to a medicine. Do not use the medication any more than instructed. Contact your doctor if you notice a change in the amount or darkening of your urine. Please tell your doctor if you have moderate to severe diarrhea while on this medicine. Do not treat the diarrhea with gpxt-xie-ftbkjnc diarrhea medicine. Tell the doctor or pharmacist if you are , planning to be , or . Do not share this medicine with anyone who has not been prescribed this medicine. ?? Side Effects The following is a list of some common side effects from this medicine. Please speak with your doctor about what you should do if you experience these or other side effects. ??? diarrhea ??? nausea and vomiting ??? stomach upset or abdominal pain ??? increased risk of sunburn ??? yeast infection of mouth ??? vaginal itching or yeast infection Call your doctor or get medical help right away if you notice any of these more serious side effects: ??? swelling in the neck or throat ??? difficulty swallowing ??? blurring or changes of vision A few people may have an allergic reaction to this medicine. Symptoms can include difficulty breathing, skin rash, itching, swelling, or severe dizziness. If you notice any of these symptoms, seek medical help quickly. ?? Extra Please speak with your doctor, nurse, or pharmacist if you have any questions about this medicine. ?? [email or web address] IMPORTANT NOTE: This document tells you briefly how to take your medicine, but it does not tell youall there is to know about it. Your doctor or pharmacist may give you other documents about your medicine. Please talk to them if you have any questions. Always follow their advice. There is a more complete description of this medicine available in Portuguese. Scan this code on your smartphone or tablet or use the web address below. You can also ask your pharmacist for a printout. If you have any questions, please ask your pharmacist. The display and use of this drug information is subject to Terms of Use. Copyright(c) 2021 [employer]. ?? [employer]. All rights reserved. This information is not intended as a substitute for professional medical care. Always follow your healthcare professional's instructions. ?? Patient Care team information Care Team Personnel Name: Not on Staff, PCP Position: [facility] Physician (General Medicine) Member Role: PCP Care Team Related Persons Name: BRIANA GOODMAN Address: home UNKNOWN UNKNOWN
--- OUTSIDE RECORDS SUMMARY | 2023-12-31 00:54 | XMS_ITS | Continuity of Care Document ---
Author Organization [facility] Address [address] [place] [address]- Care Team Providers Care Unit Reactor Operator Name Role Phone Not on Staff, PCP Primary Care Physician Unavail able Encounter [facility] Date(s): 03/24/23 - 04/03/[address] [address]- Encounter Diagnosis Suicide attempt(Final) - 03/26/23 Anxiety(Final) - 03/26/23 Discharge Disposition: A-D/C Home Attending Physician: Hannah Camacho MD Admitting Physician: Hannah Camacho MD Referring Physician: Not on Staff, Referring [...] opioid drug. Start Date: 03/31/23 Status: Ordered Metformin = 1,000 mg, By Mouth, 2 [...] drug. Start Date: 03/31/23 Status: Ordered prazosin 5 mg oral capsule 5 mg, Capsule, By Mouth, 04/02/23 21:00:00 EDT Start Date: 04/02/23 Stop Date: 04/02/23 Status: Completed Quetiapine 150 mg, By Mouth, [...] oldest [Reference Range]: 1 2 3 Height 180 cm (04/02/23 7:55 AM) 180 cm (04/01/23 8:45 AM) 180 cm (03/31/23 2:38 PM) Weight 120 kg (04/02/23 7:55 AM) 120 kg (04/01/23 8:45 AM) 120 kg (03/31/23 2:38 PM) Oxygen Saturation [94-100 %] 98 % (04/02/23 11:00 PM) 98 % (04/02/23 9:15 PM) 98 % (04/02/23 3:00 PM) Pulse Rate [55-90 bpm] 70 bpm (04/02/23 11:00 PM) 72 bpm (04/02/23 9:15 PM) 68 bpm (04/02/23 3:00 PM) Body Mass Index [18.5-24.99 kg/m2] 37.04 kg/m2 *>HHI* (04/02/23 7:55 AM) 37.04 kg/m2 *>HHI* (04/01/23 8:45 AM) 37.04 kg/m2 *>HHI* (03/31/23 2:38 PM) Blood Pressure [90-138/55-84 mm Hg] 120/70mm Hg (04/02/23 11:00 PM) 122/76mm Hg (04/02/23 9:55 PM) 118/75mm Hg (04/02/23 9:15 PM) Respiratory Rate [16-30 br/min] 18 br/min (04/02/23 11:00 PM) 18 br/min (04/02/23 9:15 PM) 18 br/min (04/02/23 3:00 PM) Temperature [96.8-100.4 DegF] 97.8 DegF (04/02/23 11:00 PM) 97.8 DegF (04/02/23 9:15 PM) 98.6 DegF (04/02/23 3:00 PM) Liters per Minute 0 L/min (03/25/23 3:51 PM) Mode of Delivery (Oxygen) Room air (04/02/23 11:00 PM) Room air (04/02/23 9:15 PM) Room air (04/02/23 3:00 PM) Blood pressure sites Arm, right (04/02/23 7:55 AM) Arm, left (04/01/23 11:54 AM) Arm, left (04/01/23 8:45 AM) Temperature Route Temporal (04/02/23 11:00 PM) Temporal (04/02/23 9:15 PM) Oral (04/02/23 3:00 PM) Dry Weight 120 kg (04/02/23 7:55 AM) 120 kg (04/01/23 8:45 AM) 120 kg (03/31/23 2:38 PM) Social History Social History Type Response Tobacco Use: 4 or less cigar ettes(less than 1/4 pack)/day in last 30 days. No Sex Hospital Progress note * Modesto Wallace RN: PERFORM, SIGN, VERIFY Event Display: Progress Note Hospital Authored Date: [id number] Patient: FRANCHESKA CHOI Age: 37 years Sex: Male : 1985 Associated Diagnoses: None Author: Modesto Wallace RN pt has been appropriate in words and behavior and making needs known appropriately this shift, now sleeping in bed. 1:[address] in place throughout shift Note * Hannah Camacho MD: PERFORM, SIGN, VERIFY Event Display: Patient Education Handout Authored Date: [id number] * Hannah Camacho MD: PERFORM Event Display: Patient Education Leaflets Authored Date: [id number] Depression ?? [id number] Depression Depression is a very common mental health problem. It's not just a state of being unhappy or sad. It's a true disease. The cause seems to be linked to a change in chemicals that send signals in the brain. These things increase a person???s risk of depression: ??? A family history of depression, alcoholism, or suicide ??? Chronic illness ??? Chronic pain ???Migraine headaches ??? High emotional stress Depression may be easier to see in others. You may have a hard time seeing it in yourself. It can show in many physical and emotional ways. These include: ??? Loss of appetite ??? Overeating ??? Not being able to sleep ??? Sleeping too much ??? A lot of tiredness not linked to physical activity ??? Restlessness or irritability ??? Slowness of movement or speech ??? Feeling sad or withdrawn ??? Loss of interest in things you once enjoyed ??? Trouble??concentrating, remembering,??or making decisions ??? Thoughts of harming or killing yourself, or thoughts that life is not worth living ??? Low self-esteem The treatment for depression may include both medicine and psychotherapy. Antidepressants can ease symptoms. They can also make it easier for you to do daily tasks. Therapy can offer emotional support. It can also help you understand things that may be causing the depression. Home care ??? Ongoing care and support help people manage this disease. Find a healthcare provider and therapist who meet your needs. Get help when you feel like you may be getting ill. ??? Be kind to yourself. Make it a point to do things that you enjoy. This may be gardening, walking in nature, or going to a movie. Reward yourself for small successes. ??? Take care of your body. Eat a balanced diet. Eat foods low in saturated fat. Eat a lot of fruits and vegetables. Exercise at least 3 times a week for 30 minutes. Even mild to moderate exercise like brisk walking can make you feel better. ??? Take medicine as prescribed. Don't stop your medicine or change the dose unless you talk with your healthcare provider. ??? Once you start medicine, expect your symptoms to get better slowly. Depression will lift over time. It doesn't get better right away. Ask your healthcare provider how long it will take for a medicine to start working. ??? Don't share your medicine. Don???t use someone else's medicine. ??? Tell your healthcare providers all the medicines you take. This includes prescription and bkhw-nir-xcmjkzu medicines. It includes vitamins and herbal supplements. Some supplements caninteract with medicines. They can cause dangerous side effects. Ask your pharmacist about medicine interactions when you have questions. ??? Don't make major decisions until you feel better. This incl udes things such as a job change, a divorce, or a marriage. ??? Don't drink alcohol. It can make depression worse. ??? Talk with your family and??trusted friends??about your feelings and thoughts.??Ask them to help you notice behavior changes early. You can then get help and, if needed, your medicine can be changed. ??? Talk with your healthcare provider if you are not getting better. They may change your medicine or have you try another treatment. ?? Follow-up care Follow up with your healthcare provider as advised. ?? Crisis care Call 988 if you have thoughts of harming yourself or others. When you call or text [phone], you will beconnected to trained crisis counselors. An online chat option is also available. [employer] is free and available 30/12. 988 counselors will work with 91 to help you get the care you need. Call 911 if you: ??? Have trouble breathing ??? Are??very confused ??? Feel very drowsy or have??trouble awakening ??? Faint ??? Have new chest pain that becomes more severe, lasts longer, or spreadsinto your shoulder, arm, neck, jaw, or back ?? When to get medical care Call your healthcare provider right away if any of these happen: ??? Your symptoms get worse ??? You have extreme depression, fear, anxiety, or anger toward yourself or others ??? You feel out of control ??? You feel that you may try to harm yourself or another ??? You hear voices other people don't hear ??? You see things other people don't see ??? You don't sleep or eat for 3 days in a row ??? Friends or family express concern over your behavior and ask you to get help ?? Last Reviewed Date: 2021 ?? [employer]. All rights reserved. This information is not intended as a substitute for professional medical care. Always follow your healthcare professional's instructions. ?? * Doug MOSES, Hannah Hodges: PERFORM Event Display: Patient Education Leaflets Authored Date: [id number] [facility] - Substance Abuse Resources ?? 151 If you need Substance Abuse Resources: ?? [facility] [phone] ?? [facility] [phone] ?? [facility] [phone] ?? [facility] [phone] ?? [facility] [place] [phone] ?? [facility] [place] [phone] ?? [facility] [phone] ?? [facility] [phone] ?? [facility] [phone] ?? [facility] [phone] ?? [facility] [phone] ?? [facility] [phone] ?? [facility] [phone] ?? [facility] [phone] ?? [facility] [place] [place] [phone] ?? [facility] (13-17 yo) [place] [phone] ?? [facility]Ad[facility] [place] [phone] ? Partial Hospitalization ??? Outpatient therapy for adults and families with substance abuse problems [facility] [phone] ? Support Services ? [facility] Out[facility] - Outpatient therapy /support for recovery / transitional housing & shelters? [address] [facility] [phone] ? [facility] - women's AA group/street outreach program/health access assistance? [address] [facility] [phone] ? Alcoholic Anonymous - AA program to maintain sobriety/ Alanon-support for families of alcoholics/Alateen-support for children of same [phone] ? [facility] - recovery support services/sober social Opportunities [address] [place] [address] ? * Doug MOSES, Hannah Hodges: PERFORM Event Display: Patient Education Leaflets Authored Date: Anxiety??Reaction ?? [id number] Anxiety??Reaction Anxiety is the feeling we all get when we think something bad might happen. It is a normal responseto stress. It most often causes only a mild reaction. But it can interfere with daily life when anxiety is more severe. In some cases, you may not know what you???re anxious about. Anxiety seems to have both mental and physical triggers. You may have stress from home and family. Or work and social relationships. Anxiety tends to run in families. This may mean it???s linked to genes. During an anxiety reaction, you may feel: ??? Helpless ??? Nervous ??? Depressed ??? Grouchy Your body may show signs of anxiety in many ways. You may have: ??? Dry mouth ??? Shakiness ??? Dizziness ??? Weakness ??? Trouble breathing ??? Fast breathing ???Chest pressure ??? Sweating ??? Headache ??? Nausea ??? Diarrhea ??? Tiredness ??? Inability to sleep ??? Sexual problems Home care Try to find those things that set off anxiety in your life. They may not be obvious. They may include: ??? Daily hassles of life. This can include traffic jams, missed appointments, or car troubles. ???Major life changes. This means both good changes, such as a new baby or job promotion. This can also mean tough life changes, such as loss of a job or loss of a loved one. ??? Overload. This means feeling that you have too many responsibilities. And that you can't take care of all of them. ??? Feeling helpless. You may feel you don???t have any control or choices. You may feel that your problems can't be solved. Notice how your body reacts to stress. This will help you take action before the stress sets off anxiety. When you can, make changes to reduce the sources of your stress. But stress in life often can't be prevented. It is important to learn how to manage stress to reduce anxiety. There are many proven methods that will reduce your anxiety. These include: ??? Exercise ??? Good nutrition ??? Getting enough sleep ??? Relaxation methods ??? Breathing exercises ??? Visualization ??? Biofeedback ??? Meditation ??? Counseling ??? Medicine For more information about this, talk with your healthcare provider. Or check online or at your local library or bookstore. You'll find many books and audiobooks on this subject. ?? Follow-up care If you feel your anxiety is not getting better with self-help, call your healthcare provider. Or make an appointment with a counselor. You may need short-term counseling or medicine to help you manage anxiety. ?? Call 911 Call 911 if any of the following occur: ??? Trouble breathing ??? Confusion ??? Drowsiness or trouble waking up ??? Fainting ??? Rapid heart rate ??? Seizure ??? New chest pain that becomes more severe, lasts longer, or spreads into your shoulder, arm, neck, jaw, or back Call or text 988 if you have thoughts of harming yourself or others. You will be connected to trained crisis counselors at the [employer] Suicide Prevention Lifeline. An online chat option is also available at www.suicideGetO2.org. You can also call Segm[employer] at [phone] ([phone]). Segm[employer] is free and available 30/12. ?? When to get medical advice Call your healthcare provider right away if any of the following occur: ??? Symptoms that don't improve or get worse, such as feelings of hopelessness or overwhelming sadness ??? Severe headache not eased by rest and mild pain medicine The [employer] Suicide Prevention Lifeline is available at [phone] ([phone]). The Lifeline is available 30/12 and provides free and confidential support. The Lifeline also has an online chat at www.[employer].org. ?? Last Reviewed Date: 2021 ?? [employer]. All rights reserved. This information is not intended as a substitute for professional medical care. Always follow your healthcare professional's instructions. ?? Patient Care team information Care Team Personnel Name: Not on Staff, PCP Position: [facility] Physician (General Medicine) Member Role: PCP Name: Hannah Camacho MD Position: [facility] ED Medicine MD Member Role: Admitting Physician Address: Address: [address] [place] [address] Name: Nohemy Jones RN Position: [facility] ED RN W/OE and Tasks Member Role: Patient Care Provider Care Team Related Persons Name: BRIANA GOODMAN Address: home UNKNOWN UNKNOWN
--- NOTE | 2023-12-31 01:13 | ED.PSYCH ---
HPI - Psych General Chief Complaint: Psychiatric Symptoms Stated Complaint: SI Time Seen by Provider: 12/31/23 00:30 Source: patient Mode of arrival: ambulatory Limitations: no limitations History of Present Illness ED Provider: irina PULIDO Narrative: Patient's history of bipolar disorder substance abuse does discharge from inpatient psych 3 days ago staying with his ex-girlfriend for last 6 months under increased stress depressed feels suicidal with a plan to jump from the bridge using cocaine Related Data Previous Rx's ?Medication ?Instructions ?Recorded atorvastatin 20 mg tablet 20 mg PO QAM 30 days #30 tabs 11/28/23 famotidine 40 mg tablet 40 mg PO QAM 30 days #30 tabs 11/28/23 hydroxyzine HCl 25 mg tablet 25 mg PO Q6H PRN Anxiety 30 days 11/28/23 #60 tabs losartan 50 mg tablet 50 mg PO DAILY 30 days #30 tabs 11/28/23 metformin 500 mg tablet 500 mg PO BID 30 days #60 tabs 11/28/23 oxcarbazepine 300 mg tablet 300 mg PO BID 30 days #60 tabs 11/28/23 quetiapine 400 mg tablet 400 mg PO BEDTIME 30 days #30 tabs 11/28/23 sitagliptin phosphate 50 mg tablet 50 mg PO DAILY 30 days #30 tabs 11/28/23 (Januvia) trazodone 100 mg tablet 100 mg PO BEDTIME PRN insomnia 30 11/28/23 days #30 tabs Allergies Allergy/AdvReac Type Severity Reaction Status Date / Time No Known Allergies Allergy Verified 12/30/23 23:10 Review of Systems Review of Systems: Yes all other systems are reviewed and are negative PMFSH Social History Social History Household Members: Significant Other Household Members Other:: ex Housing: Apartment Do you presently have visiting nurse or other home services: No Patient Tobacco Use Status: Current everyday Tobacco user Tobacco use type: Cigarette Cigarette Packs Per Day: 0.5 Cigarettes Per Day: 10.0 Second Hand Smoke Exposure: Yes Substance Use Type: Crack/Cocaine and Marijuana Advance Directives: No Advance Directives Information Provided: No service: No Sexual orientation: Straight/Heterosexual Physical Exam Vital Signs: Vital Signs: Last Vital Signs Temp 98.1 F 12/31/23 12:55 Pulse 80 12/31/23 12:55 Resp 16 12/31/23 12:55 BP 130/72 12/31/23 12:55 Pulse Ox 97 12/31/23 12:55 O2 Del Method Room Air 12/31/23 12:55 BMI result Body Mass Index 37.7 Appearance: Alert. Oriented X3. No acute distress. Eyes: PERRLA, No Nystagmus ENT: Pharynx normal. Oral Mucosa moist Neck: Normal inspection. Neck supple. CVS: Normal heart rate and rhythm. Pulses normal. Respiratory: No respiratory distress. Equal air entry bilateral, no wheezing/rales/rhonchi Abdomen: Soft and nontender. Bowel sounds are present, no mass palpable, no CVA tenderness Skin: Skin warm and dry. Normal skin color. Normal skin turgor. Extremities: No lower extremity edema. No calf tenderness psych: Feel depressed with SI ideation no hallucination or delusion Neuro: Oriented X 3. No motor deficit. No sensory deficit.No cerebellar signs , cranial nerves II-XII intact Medications Administered Generic Name Dose Route Start Last Admin Trade Name Freq PRN Reason Stop Dose Admin Atorvastatin Calcium 20 mg 12/31/23 09:00 12/31/23 09:16 Atorvastatin Calcium 20 Mg Tablet PO 20 mg DAILY ISAÍAS Administration Famotidine 40 mg 12/31/23 09:00 12/31/23 09:16 Famotidine 20 Mg Tablet PO 40 mg DAILY ISAÍAS Administration Lactated Ringer's 1,000 mls @ 250 mls/hr 12/31/23 12:30 12/31/23 12:55 Lr IVCONT 250 mls/hr .Q4H ISAÍAS Administration Losartan Potassium 50 mg 12/31/23 09:00 12/31/23 09:16 Losartan Potassium 50 Mg Tablet PO 50 mg DAILY ISAÍAS Administration Protocol Metformin HCl 500 mg 12/31/23 09:00 12/31/23 09:16 Metformin Hcl 500 Mg Tablet PO 500 mg BID ISAÍAS Administration Oxcarbazepine 300 mg 12/31/23 09:00 12/31/23 09:16 Oxcarbazepine 300 Mg Tablet PO 300 mg BID ISAÍAS Administration Sitagliptin Phosphate 50 mg 12/31/23 09:00 12/31/23 09:16 Sitagliptin Phosphate 50 Mg Tablet PO 50 mg DAILY ISAÍAS Administration Discontinued Medications Generic Name Dose Route Start Last Admin Trade Name Freq PRN Reason Stop Dose Admin Lactated Ringer's 1,000 mls @ 999 mls/hr 12/31/23 07:30 12/31/23 08:36 Lr IV 12/31/23 08:30 Infused .Q1H1M ISAÍAS Infusion Lactated Ringer's 1,000 mls @ 999 mls/hr 12/31/23 07:30 12/31/23 10:27 Lr IV 12/31/23 08:30 Infused .Q1H1M ISAÍAS Infusion Lactated Ringer's 1,000 mls @ 999 mls/hr 12/31/23 07:30 12/31/23 10:28 Lr IV 12/31/23 08:30 Infused .Q1H1M ISAÍAS Infusion Medical Decision Making Medical Decision Making MDM Narrative: Patient's depression with suicidal ideation came here for care psych evaluation lab workup showed leukocytosis with a increased creatinine to 2.17 etiology not clear patient is signed out to Dr. Valentin for further evaluation possible medical admission and IV hydration will check CPK to rule out rhabdomyolysis patient is not medically cleared will be admitted medically 12/31/2023 at 07:51 hours,Dr. Scott Dumont's Note Start physician observation I assumed care of this patient from my colleague, Dr. Maury Lutz at 07:00 hours. Patient presents emergency department for evaluation increased depression since he was living with his ex-girlfriend for 6 months and she now has a new boyfriend which has triggered suicidal ideation with a plan to jump off a bridge. He did admit to using cocaine over the last 2 days. My interpretation patient's laboratory evaluation is as follows: Elevated WBC 12706 with 82 neutrophils. Chloride elevated 111. CO2 low 16, anion gap elevated 22. BUN and creatinine elevated 28 and 2.17. This is compared to BUN and creatinine of 16 and 0.89 from 11/20/2023. AST was elevated 47. CK was elevated 4194. Urine tox screen was positive for cocaine and marijuana. Alcohol was below detectable limits. Patient has acute kidney injury most likely secondary to rhabdomyolysis from his cocaine use. I did add a urinalysis. Patient was taken out of the emergency department Behavioral Health unit and transferred to the main department for management of his rhabdomyolysis. I ordered lactated Ringer's x3 L. I will repeat his BMP and CK after completing this treatment to see if he has improvement of his acute kidney injury and CK level. 12:11 End physician observation The patient completed his 3 L of lactated Ringer's. Repeat BUN and creatinine improved to 18 and 1.04 however patient's CK increased from 4194 to 7270. Given this increased, the patient still at risk for kidney injury from rhabdomyolysis since the CK is not yet reached its peak. T 13:05 I did discuss the patient over tiger text with the covering hospitalist, Dr. Lopez and the patient will be admitted for further management Admission/Observation Consideration of admission/observation: Escalation of care including admission/observation considered Consult Healthcare Provider Management of the patient was discussed with: Hospitalist Lab Data MDM Lab Attestation statement: I reviewed the patient's lab results. 12/30/23 23:26 12/31/23 10:43 Labs: Lab Results 12/30/23 12/31/23 12/31/23 Range/Units 23:26 05:43 10:43 WBC 19.6 H (4.8-10.8) X10*3/uL RBC 5.48 D (4.60-5.80) X10*6/uL Hgb 16.3 D (14.0-18.0) g/dl Hct 48.6 D (42.0-52.0) % MCV 88.7 (80.0-98.0) fL MCH 29.7 (27.0-33.0) pg MCHC 33.5 (31.0-36.0) g/dl RDW 14.7 (11.0-16.0) % Plt Count 303 (160-400) X10*3/uL MPV 10.2 (9.4-12.4) fL Immature Gran % (Auto) 0.6 H (0.0-0.4) % Neut % (Auto) 86.2 H (45-73) % Lymph % (Auto) 6.8 L (20-40) % [place] % (Auto) 6.1 (2-11) % Eos % (Auto) 0.0 (0-4) % Baso % (Auto) 0.3 (0-2) % Lymph # (Auto) 1.3 (1.2-4.9) X10*3/uL [place] # (Auto) 1.2 (0.1-1.2) X10*3/uL Eos # (Auto) 0.0 (0.0-0.4) X10*3/uL Baso # (Auto) 0.1 (0.0-0.2) X10*3/uL Abs Immat Gran (auto) 0.11 H (0.00-0.03) X10*3/uL Absolute Neuts (auto) 17.0 H (2.0-8.3) x10*3/uL Absolute Nucleated RBC 0.000 (0.0-0.012) X10*3/uL Nucleated RBC % (auto) 0.0 (0.0-0.2) /100WBC Sodium 145 140 (135-145) mmol/L Potassium 3.7 3.7 (3.3-5.1) mmol/L Chloride 111 H 108 (96-108) mmol/L Carbon Dioxide 16 L 23 (22-29) mmol/L Anion Gap 22 H 13 (12-20) BUN 28 H 18 H (9-16) mg/dL Creatinine 2.17 H 1.04 (0.5-1.4) mg/dL Estim Creat Clear Calc 60.9 127.0 Estimated GFR 34 > 60 Random Glucose 122 H 110 (60-115) mg/dL Calcium 10.3 H D 9.3 D (8.4-10.2) mg/dL Total Bilirubin 1.1 H (0.0-1.0) mg/dL AST 47 H (5-37) U/L ALT 30 (0-40) U/L Alkaline Phosphatase 94 (39-117) U/L Total Creatine Kinase 4194 H 7270 H (38-174) U/L Total Protein 9.2 H (6.5-8.0) g/dL Albumin 5.0 (3.5-5.0) g/dL Urine Color Urine Appearance Urine pH (5.0-9.0) Ur Specific [place] (1.005-1.025) Urine Protein (Neg-Trace) mg/dL Urine Glucose (UA) (Negative) mg/dL Urine Ketones (Negative) mg/dL Urine Blood (Negative) Urine Nitrite (Negative) Ur Leukocyte Esterase (Negative) Urine RBC (0-2) /HPF Urine WBC (0-5) /HPF Ur Squamous Epith Cells (0-2) /HPF Urine Bacteria (None Seen) Hyaline Casts (0-2) /LPF Urine Opiates Screen Not Detected (Not Detect) Ur Buprenorphine Scrn Not Detected (Not Detect) ng/mL Ur Oxycodone Screen Not Detected (Not Detect) ng/mL Urine Methadone Screen Not Detected (Not Detect) ng/mL Urine Fentanyl Screen Not Detected (Not Detect) Ur Barbiturates Screen Not Detected (Not Detect) Ur Phencyclidine Scrn Not Detected (Not Detect) Ur Amphetamines Screen Not Detected (Not Detect) U Benzodiazepines Scrn Not Detected (Not Detect) Urine Cocaine Screen POSITIVE H (Not Detect) U Marijuana (THC) Screen POSITIVE H (Not Detect) Ethyl Alcohol < 10 mg/dL 12/31/23 Range/Units 11:05 WBC (4.8-10.8) X10*3/uL RBC (4.60-5.80) X10*6/uL Hgb (14.0-18.0) g/dl Hct (42.0-52.0) % MCV (80.0-98.0) fL MCH (27.0-33.0) pg MCHC (31.0-36.0) g/dl RDW (11.0-16.0) % Plt Count (160-400) X10*3/uL MPV (9.4-12.4) fL Immature Gran % (Auto) (0.0-0.4) % Neut % (Auto) (45-73) % Lymph % (Auto) (20-40) % [place] % (Auto) (2-11) % Eos % (Auto) (0-4) % Baso % (Auto) (0-2) % Lymph # (Auto) (1.2-4.9) X10*3/uL [place] # (Auto) (0.1-1.2) X10*3/uL Eos # (Auto) (0.0-0.4) X10*3/uL Baso # (Auto) (0.0-0.2) X10*3/uL Abs Immat Gran (auto) (0.00-0.03) X10*3/uL Absolute Neuts (auto) (2.0-8.3) x10*3/uL Absolute Nucleated RBC (0.0-0.012) X10*3/uL Nucleated RBC % (auto) (0.0-0.2) /100WBC Sodium (135-145) mmol/L Potassium (3.3-5.1) mmol/L Chloride (96-108) mmol/L Carbon Dioxide (22-29) mmol/L Anion Gap (12-20) BUN (9-16) mg/dL Creatinine (0.5-1.4) mg/dL Estim Creat Clear Calc Estimated GFR Random Glucose (60-115) mg/dL Calcium (8.4-10.2) mg/dL Total Bilirubin (0.0-1.0) mg/dL AST (5-37) U/L ALT (0-40) U/L Alkaline Phosphatase (39-117) U/L Total Creatine Kinase (38-174) U/L Total Protein (6.5-8.0) g/dL Albumin (3.5-5.0) g/dL Urine Color Yellow Urine Appearance Clear Urine pH 6.0 (5.0-9.0) Ur Specific [place] 1.020 (1.005-1.025) Urine Protein 30 (1+) H (Neg-Trace) mg/dL Urine Glucose (UA) Negative (Negative) mg/dL Urine Ketones Negative (Negative) mg/dL Urine Blood Trace H (Negative) Urine Nitrite Negative (Negative) Ur Leukocyte Esterase Negative (Negative) Urine RBC 0-2 (0-2) /HPF Urine WBC 0-5 (0-5) /HPF Ur Squamous Epith Cells 0-2 (0-2) /HPF Urine Bacteria None Seen (None Seen) Hyaline Casts 0-2 (0-2) /LPF Urine Opiates Screen (Not Detect) Ur Buprenorphine Scrn (Not Detect) ng/mL Ur Oxycodone Screen (Not Detect) ng/mL Urine Methadone Screen (Not Detect) ng/mL Urine Fentanyl Screen (Not Detect) Ur Barbiturates Screen (Not Detect) Ur Phencyclidine Scrn (Not Detect) Ur Amphetamines Screen (Not Detect) U Benzodiazepines Scrn (Not Detect) Urine Cocaine Screen (Not Detect) U Marijuana (THC) Screen (Not Detect) Ethyl Alcohol mg/dL Discharge Plan Discharge Clinical Impression: Acute renal failure due to rhabdomyolysis, MDD (major depressive disorder), recurrent episode, Suicidal ideation, Acute renal failure, Polysubstance abuse Prescriptions: No Action hydroxyzine HCl 25 mg Tablet 25 mg PO Q6H PRN (Reason: Anxiety) 30 Days Qty: 60 0RF quetiapine 400 mg Tablet 400 mg PO BEDTIME 30 Days Qty: 30 0RF trazodone 100 mg Tablet 100 mg PO BEDTIME PRN (Reason: insomnia) 30 Days Qty: 30 0RF losartan 50 mg tablet 50 mg PO DAILY 30 Days Qty: 30 0RF metformin 500 mg tablet 500 mg PO BID 30 Days Qty: 60 0RF atorvastatin 20 mg tablet 20 mg PO QAM 30 Days Qty: 30 0RF famotidine 40 mg tablet 40 mg PO QAM 30 Days Qty: 30 0RF oxcarbazepine 300 mg tablet 300 mg PO BID 30 Days Qty: 60 0RF Januvia 50 mg tablet 50 mg PO DAILY 30 Days Qty: 30 0RF Interventions: Elma-Suicide Risk Severity Scale Last Done: 12/31/23 03:39 Print Language: Kuwaiti
[2023-12-31 06:01] LABS: Amphetamine Screen Urine Not Detected (Not Detect); Barbiturates, Urine Not Detected (Not Detect); Benzodiazepines Screen Urine Not Detected (Not Detect); Buprenorphine Scr Not Detected (Not Detect); Cannabinoid Screen Urine POSITIVE (Not Detect); Cocaine Screen Urine POSITIVE (Not Detect); Fentanyl, urine Not Detected (Not Detect); Methadone Screen, Urine Not Detected (Not Detect); Opiate Screen Urine Not Detected (Not Detect); Oxycodone Screen Urine Not Detected (Not Detect); Phencyclidine Screen Urine Not Detected (Not Detect)
[2023-12-31 07:57] VITALS: BP 129/68; PULSE 73; RESP 16; TEMP 36.6; O2SAT 97
[2023-12-31] MEDS: Lactated Ringers 1,000 ML 999 ML IV ×3 (07:57→09:13)
--- NOTE | 2023-12-31 08:00 | PC.NURSE ---
patient moved to ED 22 for fluids, 18# placed in the left AC, patient is calm and cooperatve, alert and oriented. LR running
[2023-12-31] MEDS: Famotidine 20 MG TABLET 40 MG PO (09:16)
[2023-12-31] MEDS: Atorvastatin Calcium 20 MG TABLET PO (09:16)
[2023-12-31] MEDS: metFORMIN HCl 500 MG TABLET PO (09:16)
[2023-12-31] MEDS: SITagliptin Phosphate 50 MG TABLET PO (09:16)
[2023-12-31] MEDS: Losartan Potassium 50 MG TABLET PO (09:16)
[2023-12-31] MEDS: OXcarbazepine 300 MG TABLET PO ×2 (09:16→21:05)
[2023-12-31 11:10] LABS: Anion Gap 13 (12-20); Blood Urea Nitrogen 18 mg/dL (9-16); Calcium 9.3 mg/dL (8.4-10.2); Chloride 108 mmol/L (96-108); Glucose Random 110 mg/dL (60-115); Potassium 3.7 mmol/L (3.3-5.1); Sodium 140 mmol/L (135-145)
[2023-12-31 11:14] LABS: Appearance Urine Clear; Color Urine Yellow; Glucose Urine UA Negative (Negative); Leukocyte Esterase Urine Negative (Negative); Nitrite Urine Negative (Negative); UMIC TRIGGER UACC YES; Urine Blood Trace (Negative); Urine Ketones Negative (Negative); Urine Protein 30 (1+) mg/dL (Neg-Trace)
[2023-12-31 11:26] LABS: Carbon Dioxide 23 mmol/L (22-29); Estimated Glomerular Filt Rate > 60
[2023-12-31 11:53] LABS: Bacteria Urine None Seen (None Seen); Hyaline Casts Urine 0-2 /LPF (0-2); RBC Urine 0-2 /HPF (0-2); Squamous Epithelial Cell Urine 0-2 /HPF (0-2); WBC Urine 0-5 /HPF (0-5)
[2023-12-31 12:55] VITALS: BP 130/72; PULSE 80; RESP 16; TEMP 36.7; O2SAT 97
[2023-12-31] MEDS: Lactated Ringers 1,000 ML 250 ML IVCONT ×3 (12:55→21:44)
--- NOTE | 2023-12-31 14:17 | P.HPHOSP_ITS ---
History of Present Illness Date of Service: 12/31/23 Attending physician on admission: Manisha Lopez Chief Complaint: Suicidal ideation Pt is a 38-year-old male with a PMH significant for?HTN, HLD, abo-vunaaee-tcccwymjp type 2 diabetes, polysubstance use disorder, PTSD, bipolar disorder, depression with SI, and multiple inpatient psychiatric hospitalizations who presents to the ED with?increased depression with suicidal ideation. Pt with recent inpatient psychiatric admissions here on 10/01-10/12 and then on 11/21-11/27. Reports was most recently admitted to [facility] 2 weeks ago and discharged around 1.5 weeks ago. Since last discharge patient has had increasing depression with suicidal ideation with plan to jump off a bridge. Patient's depression has been exacerbated by thinking about his ex-girlfriend who had an affair with his best friend. Patient also admits to using cocaine daily since discharge, up to an eight-ball. Denies HI. Complains of intermittent substernal, epigastric burning sensation and left-sided ?squeezing? around his arm. No palpitations. States has had 3 episodes of liquid diarrhea since yesterday. No fever, chills, nausea, vomiting, abdominal pain. Denies shortness of breath or difficulty breathing In the ED pt was tachycardic to 137, vitals otherwise stable and WNL. Labs were significant for leukocytosis of 19.6, initial BUN 28 and creatinine 2.17, with repeat BUN 18 and creatinine 1.04, bilirubin 1.1, AST 47, and initial CPK 4194 with repeat 7270. Stable H&H. No significant electrolyte abnormalities. Tox screen positive for cocaine and marijuana. EKG demonstrated sinus tachycardia of [address] elevations or depressions. Pt was treated with 3 L lactated Ringer's and started on maintenance fluids. Pt will be admitted to the hospital for treatment and further evaluation of cocaine induced rhabdomyolysis in the setting of patient with SI. Review of Systems 2 Review of Systems: SI with plan to jump off bridge Denies HI [place] Left-sided chest ?squeezing? 3 episodes of liquid diarrhea since yest erday Denies shortness of breath No fever, chills, nausea, vomiting, abdominal pain PMFSH Medical History (Updated 12/31/23 @ 16:20 by MONAE Johnson) GERD (gastroesophageal reflux disease) Non-insulin dependent type 2 diabetes mellitus Hypertension Social History Household Members: Significant Other Household Members Other:: ex Housing: Apartment Do you presently have visiting nurse or other home services: No Patient Tobacco Use Status: Current everyday Tobacco user Tobacco use type: Cigarette Cigarette Packs Per Day: 0.5 Cigarettes Per Day: 10.0 Second Hand Smoke Exposure: Yes Substance Use Type: Crack/Cocaine and Marijuana Advance Directives: No Advance Directives Information Provided: No service: No Sexual orientation: Straight/Heterosexual Meds Allergies Allergy/AdvReac Type Severity Reaction Status Date / Time No Known Allergies Allergy Verified 12/30/23 23:10 Active Medications: Current Medications Atorvastatin Calcium (Atorvastatin Calcium 20 Mg Tablet) 20 mg PO DAILY [facility] Last Admin: 12/31/23 09:16 Dose: 20 mg Famotidine (Famotidine 20 Mg Tablet) 40 mg PO DAILY [facility] Last Admin: 12/31/23 09:16 Dose: 40 mg Hydroxyzine HCl (Hydroxyzine Hcl 25 Mg Tablet) 25 mg PO Q6H PRN PRN Reason: Anxiety Lactated Ringer's (Lr) 1,000 mls @ 250 mls/hr IVCONT .Q4H ISAÍAS Last Admin: 12/31/23 12:55 Dose: 250 mls/hr Losartan Potassium (Losartan Potassium 50 Mg Tablet) 50 mg PO DAILY [facility]; Protocol Last Admin: 12/31/23 09:16 Dose: 50 mg Metformin HCl (Metformin Hcl 500 Mg Tablet) 500 mg PO BID ISAÍAS Last Admin: 12/31/23 09:16 Dose: 500 mg Oxcarbazepine (Oxcarbazepine 300 Mg Tablet) 300 mg PO BID ISAÍAS Last Admin: 12/31/23 09:16 Dose: 300 mg Quetiapine Fumarate (Quetiapine Fumarate 400 Mg Tablet) 400 mg PO BEDTIME ISAÍAS Sitagliptin Phosphate (Sitagliptin Phosphate 50 Mg Tablet) 50 mg PO DAILY [facility] Last Admin: 12/31/23 09:16 Dose: 50 mg Trazodone HCl (Trazodone Hcl 100 Mg Tablet) 100 mg PO BEDTIME PRN PRN Reason: insomnia Home Medications ?Medication ?Instructions ?Recorded ?Confirmed ?Last Taken ?Type atorvastatin 20 mg tablet 20 mg PO DAILY 12/31/23 12/31/23 12/29/23 History cholecalciferol (vitamin D3) 25 25 mcg PO DAILY 12/31/23 12/31/23 12/29/23 History mcg (1,000 unit) tablet (Vitamin D3) famotidine 20 mg tablet 40 mg PO DAILY 12/31/23 12/31/23 12/29/23 History melatonin 3 mg tablet 9 mg PO BEDTIME PRN insomnia 12/31/23 12/31/23 Unknown History prazosin 2 mg capsule 2 mg PO BEDTIME 12/31/23 12/31/23 12/29/23 History quetiapine 150 mg tablet 300 mg PO BEDTIME 12/31/23 12/31/23 12/29/23 History Physical Exam 2 Vital Signs and Narrative: Vital Signs: Last Vital Signs Temp 98.1 F 12/31/23 12:55 Pulse 80 12/31/23 12:55 Resp 16 12/31/23 12:55 BP 130/72 12/31/23 12:55 Pulse Ox 97 12/31/23 12:55 O2 Del Method Room Air 12/31/23 12:55 BMI result Body Mass Index 37.7 General: AOx3, no acute distress Resp: CTA bilaterally CVS: S1, S2, RRR GI: +BS, NT, no distention Skin: Warm, dry Neuro: Cranial nerves II-XII grossly intact bilaterally. Motor grossly intact bilaterally Extremities: No edema Psych: Flat affect Results Labs 12/30/23 23:26 12/31/23 10:43 Labs: Laboratory Results - last 24 hr 12/30/23 12/31/23 12/31/23 23:26 05:43 10:43 MCV 88.7 MCH 29.7 MCHC 33.5 RDW 14.7 Plt Count 303 MPV 10.2 Immature Gran % (Auto) 0.6 H Neut % (Auto) 86.2 H Lymph % (Auto) 6.8 L [place] % (Auto) 6.1 Eos % (Auto) 0.0 Baso % (Auto) 0.3 Lymph # (Auto) 1.3 [place] # (Auto) 1.2 Eos # (Auto) 0.0 Baso # (Auto) 0.1 Abs Immat Gran (auto) 0.11 H Absolute Neuts (auto) 17.0 H Absolute Nucleated RBC 0.000 Nucleated RBC % (auto) 0.0 Anion Gap 22 H 13 Estim Creat Clear Calc 60.9 127.0 Estimated GFR 34 > 60 Random Glucose 122 H 110 Calcium 10.3 H D 9.3 D Total Bilirubin 1.1 H AST 47 H ALT 30 Alkaline Phosphatase 94 Total Creatine Kinase 4194 H 7270 H Total Protein 9.2 H Albumin 5.0 Urine Color Urine Appearance Urine pH Ur Specific [place] Urine Protein Urine Glucose (UA) Urine Ketones Urine Blood Urine Nitrite Ur Leukocyte Esterase Urine RBC Urine WBC Ur Squamous Epith Cells Urine Bacteria Hyaline Casts Urine Opiates Screen Not Detected Ur Buprenorphine Scrn Not Detected Ur Oxycodone Screen Not Detected Urine Methadone Screen Not Detected Urine Fentanyl Screen Not Detected Ur Barbiturates Screen Not Detected Ur Phencyclidine Scrn Not Detected Ur Amphetamines Screen Not Detected U Benzodiazepines Scrn Not Detected Urine Cocaine Screen POSITIVE H U Marijuana (THC) Screen POSITIVE H Ethyl Alcohol < 10 12/31/23 11:05 MCV MCH MCHC RDW Plt Count MPV Immature Gran % (Auto) Neut % (Auto) Lymph % (Auto) [place] % (Auto) Eos % (Auto) Baso % (Auto) Lymph # (Auto) [place] # (Auto) Eos # (Auto) Baso # (Auto) Abs Immat Gran (auto) Absolute Neuts (auto) Absolute Nucleated RBC Nucleated RBC % (auto) Anion Gap Estim Creat Clear Calc Estimated GFR Random Glucose Calcium Total Bilirubin AST ALT Alkaline Phosphatase Total Creatine Kinase Total Protein Albumin Urine Color Yellow Urine Appearance Clear Urine pH 6.0 Ur Specific [place] 1.020 Urine Protein 30 (1+) H Urine Glucose (UA) Negative Urine Ketones Negative Urine Blood Trace H Urine Nitrite Negative Ur Leukocyte Esterase Negative Urine RBC 0-2 Urine WBC 0-5 Ur Squamous Epith Cells 0-2 Urine Bacteria None Seen Hyaline Casts 0-2 Urine Opiates Screen Ur Buprenorphine Scrn Ur Oxycodone Screen Urine Methadone Screen Urine Fentanyl Screen Ur Barbiturates Screen Ur Phencyclidine Scrn Ur Amphetamines Screen U Benzodiazepines Scrn Urine Cocaine Screen U Marijuana (THC) Screen Ethyl Alcohol Assessment and Plan (1) Rhabdomyolysis: Status: Acute Plan Pt is a 38-year-old male with a PMH significant for?HTN, HLD, ctn-fdoykks-lmyvasmrf type 2 diabetes, polysubstance use disorder, PTSD, bipolar disorder, depression with SI, and multiple inpatient psychiatric hospitalizations who presents to the ED with?increased depression with suicidal ideation. Pt will be admitted to the hospital for treatment and further evaluation of cocaine induced rhabdomyolysis in the setting of patient with SI. Rhabdomyolysis Initial CPK 4194 with repeat 7270 after fluids Likely secondary to cocaine use Patient received 3 L IVF and started on maintenance fluids in the ED Continue to treat with lactated Ringer's at 250 mls/hr Will check VBG Follow CPK IVIS, resolved In his creatinine 2.17 with repeat 1.04 after fluids In the setting of cocaine induced rhabdomyolysis Treat as above Follow BMP Depression with SI Pt comes in after attempting to jump off bridge Increasing depression due to ex-girlfriend who cheated on him with his best friend Continue hydroxyzine, oxcarbazepine, quetiapine, and prazosin 1 on 1 sitter Care team consult once medically cleared Epigastric burning with left-sided chest discomfort Likley secondary to GERD/heartburn Will check troponin, repeat EKG Continue famotidine Polysubstance use disorder Pt has been using cocaine daily since discharge from [facility] weeks ago Addiction medicine consult Oia-ulzvnrg-kscragupy type 2 diabetes Hold metformin Sliding-scale insulin Full Code Attending:?Dr. Lopez DVT Prophylaxis: Lovenox Pt will require a hospitalization of at least two nights for treatment of?cocaine induced rhabdomyolysis. Given that patient has CPK has not yet peaked, patient will require hospitalization for the administration of aggressive IVF and close monitoring of labs including CPK and kidney function. Quality Stroke Does the patient have a stroke diagnosis?: No VTE Prior VTE?: No VTE Risk Level:: Medical - moderate - high VTE Device Contraindication: Treatment Not Indicated VTE Drug Contraindication: N/A - Med Ordered
--- NOTE | 2023-12-31 15:03 | PHA.MEDREC ---
Addendum entered by Kumar Ramos RPh 12/31/23 15:06: reviewed by [facility] Original Note: Pharmacy Consult ? Medication Reconciliation Pharmacy has completed the medication reconciliation. Spoke to patient to confirm med list. Patient stated he isn't taking Januvia 50 mg daily
[2023-12-31] MEDS: Calcium Carbonate 750 MG TAB.CHEW 1500 MG PO (16:12)
[2023-12-31] MEDS: Famotidine 20 MG TABLET PO (16:13)
[2023-12-31 16:38] VITALS: BP 123/59; PULSE 70; RESP 16; TEMP 36.4; O2SAT 96
[2023-12-31 16:42] LABS: Glucose, Whole Blood 103 mg/dL (60-115)
[2023-12-31 16:52] LABS: Troponin-I High Sensitivity 17.2 ng/L (<3.5-35.0)
[2023-12-31] MEDS: Enoxaparin Sodium 40 MG/0.4 ML SYRINGE SUBCUT (17:40)
[2023-12-31 18:39] LABS: VBG Base Excess 1.3 mmol/L; VBG HCO3 24 mmol/L (22-26); VBG pCO2 35 mmHg; VBG pH 7.45 (7.32-7.43); VBG pO2 94 mmHg
[2023-12-31 18:40] LABS: Venous Blood Gas Refer to POC result
[2023-12-31 19:04] LABS: Glucose, Whole Blood 156 mg/dL (60-115)
[2023-12-31] MEDS: Insulin Lispro 100 UNIT/ML 3 ML VIAL SUBCUT (19:08)
[2023-12-31 19:23] VITALS: BP 135/62; PULSE 66; RESP 16; TEMP 36; O2SAT 98
[2023-12-31] MEDS: Prazosin HCL 1 MG CAPSULE 2 MG PO (21:04)
[2023-12-31] MEDS: QUEtiapine Fumarate 300 MG TABLET PO (21:04)
[2023-12-31 23:23] VITALS: BP 111/59; PULSE 87; RESP 18; TEMP 36.3; O2SAT 96
[2024-01-01] MEDS: Lactated Ringers 1,000 ML 250 ML IVCONT ×4 (01:30→12:34)
[2024-01-01 06:43] LABS: Hematocrit 38.9 % (42.0-52.0); Mean Corpuscular HGB Conc 33.4 g/dl (31.0-36.0); Mean Corpuscular Hemoglobin 30.1 pg (27.0-33.0); Mean Platelet Volume 10.1 fL (9.4-12.4); Platelet Count 230 X10*3/uL (160-400); Red Blood Count 4.32 X10*6/uL (4.60-5.80); Red Cell Distribution Width 14.6 % (11.0-16.0); White Blood Count 9.5 X10*3/uL (4.8-10.8)
[2024-01-01 06:57] VITALS: BP 118/62; PULSE 63; RESP 20; TEMP 36.3; O2SAT 97
[2024-01-01 07:05] LABS: Troponin-I High Sensitivity 11.8 ng/L (<3.5-35.0)
[2024-01-01 07:11] LABS: Anion Gap 14 (12-20); Blood Urea Nitrogen 13 mg/dL (9-16); Calcium 8.7 mg/dL (8.4-10.2); Carbon Dioxide 24 mmol/L (22-29); Chloride 110 mmol/L (96-108); Creatinine Clr Calc Pharmacy 146.8; Estimated Glomerular Filt Rate > 60; Glucose Random 98 mg/dL (60-115); Potassium 3.7 mmol/L (3.3-5.1); Sodium 144 mmol/L (135-145)
[2024-01-01] MEDS: Losartan Potassium 50 MG TABLET PO (07:50)
[2024-01-01] MEDS: Cholecalciferol (Vitamin D3) 25 MCG TABLET PO (07:50)
[2024-01-01] MEDS: Atorvastatin Calcium 20 MG TABLET PO (07:50)
[2024-01-01] MEDS: hydrOXYzine HCL 25 MG TABLET PO (07:50)
[2024-01-01] MEDS: SITagliptin Phosphate 50 MG TABLET PO (07:50)
[2024-01-01] MEDS: OXcarbazepine 300 MG TABLET PO ×2 (07:50→20:40)
[2024-01-01] MEDS: Famotidine 20 MG TABLET 40 MG PO (07:50)
[2024-01-01 07:51] LABS: Glucose, Whole Blood 104 mg/dL (60-115)
[2024-01-01 11:41] LABS: Glucose, Whole Blood 135 mg/dL (60-115)
[2024-01-01] MEDS: oxyCODONE HCl Immed Release 5 MG TABLET 10 MG PO (12:51)
--- NOTE | 2024-01-01 13:05 | HO.PM.IMPN ---
Subjective Subjective Date of Service: 01/01/24 Interval History: Rhabdomyolysis possible related to cocaine use. Review of Systems Has some myalgias Denies any chest pain shortness of fever chills Physical Exam Vital Signs: Vital Signs: Last Vital Signs Temp 97.3 F 01/01/24 06:57 Pulse 63 01/01/24 06:57 Resp 20 01/01/24 06:57 BP 118/62 01/01/24 06:57 Pulse Ox 97 01/01/24 06:57 O2 Del Method Room Air 01/01/24 06:57 BMI result Body Mass Index 37.7 Appearance: Alert.? Oriented X3.? cvs: rrr, [id number] , no murmur res: clear to auscultation ,no rhonchii or wheezing abd: no rebound or guarding ,nt, bs present. ext pulses present , no cyanosis. neuro: axo3 , nonfocal. Objective Data Active Medications Acetaminophen (Acetaminophen 325 Mg Tablet) 650 mg PO Q6H PRN PRN Reason: Pain, Mild (Pain Scale 1-3), fever or headache Atorvastatin Calcium (Atorvastatin Calcium 20 Mg Tablet) 20 mg PO DAILY FORMERLY [facility], [facility] Last Admin: 01/01/24 07:50 Dose: 20 mg Documented By: ROXANN Benzonatate (Benzonatate 100 Mg Capsule) 100 mg PO TID PRN PRN Reason: Cough Calcium Carbonate (Calcium Carbonate 750 Mg Tab.Chew) 750 mg PO Q4H PRN PRN Reason: Heartburn Enoxaparin Sodium (Enoxaparin Sodium 40 Mg/0.4 Ml Syringe) 40 mg SUBCUT Q24H FOR[facility], [facility] Last Admin: 12/31/23 17:40 Dose: 40 mg Documented By: CARIDAD Famotidine (Famotidine 20 Mg Tablet) 40 mg PO DAILY FOR[facility]LY [facility], [facility] Last Admin: 01/01/24 07:50 Dose: 40 mg Documented By: ROXANN Glucose (Glucose Gel 15 Gm Gel..Gram.) 15 gm PO Q15M PRN; Protocol PRN Reason: per Hypoglycemia Standing Ord. Hydroxyzine HCl (Hydroxyzine Hcl 25 Mg Tablet) 25 mg PO Q6H PRN PRN Reason: Anxiety Last Admin: 01/01/24 07:50 Dose: 25 mg Documented By: ROXANN Lactated Ringer's (Lr) 1,000 mls @ 250 mls/hr IVCONT .Q4H FOR[facility], [facility]1983 Last Admin: 01/01/24 12:34 Dose: 250 mls/hr Documented By: COTEMA Dextrose (D10) 250 mls @ 750 mls/hr IV Q15M PRN; Protocol PRN Reason: per Hypoglycemia Standing Ord. Insulin Human Lispro (Insulin Lispro 100 Unit/Ml 3 Ml Vial) 0 unit SUBCUT QIDACHS [facility]LY [facility], [facility]; Protocol Last Admin: 01/01/24 11:42 Dose: Not Given Documented By: COTEMA Non-Admin Reason: No Insulin Coverage Losartan Potassium (Losartan Potassium 50 Mg Tablet) 50 mg PO DAILY [facility], [facility]; Protocol Last Admin: 01/01/24 07:50 Dose: 50 mg Documented By: BRENDONEMA Magnesium Hydroxide (Milk Of Magnesia 30 Ml Oral.Susp) 30 ml PO DAILY PRN PRN Reason: Constipation Melatonin (Melatonin 3 Mg Tablet) 9 mg PO BEDTIME PRN PRN Reason: insomnia Ondansetron HCl (Ondansetron Hcl 4 Mg/2 Ml Vial) 4 mg IVPUSH Q8H PRN PRN Reason: Nausea and Vomiting Oxcarbazepine (Oxcarbazepine 300 Mg Tablet) 300 mg PO BID [facility], [facility] Last Admin: 01/01/24 07:50 Dose: 300 mg Documented By: ROXANN Prazosin HCl (Prazosin Hcl 1 Mg Capsule) 2 mg PO BEDTIME FOR[facility]LY [facility], [facility]; Protocol Last Admin: 12/31/23 21:04 Dose: 2 mg Documented By: LYSJorgito Quetiapine Fumarate (Quetiapine Fumarate 300 Mg Tablet) 300 mg PO BEDTIME FOR[facility], [facility] Last Admin: 12/31/23 21:04 Dose: 300 mg Documented By: LYSZ Sitagliptin Phosphate (Sitagliptin Phosphate 50 Mg Tablet) 50 mg PO DAILY [facility], [facility] Last Admin: 01/01/24 07:50 Dose: 50 mg Documented By: COTEMA Sodium Chloride (0.9 % Sodium Chloride Flush 3 Ml Syringe) 3 ml IVFLUSH QSHIFT [facility], [facility] Last Admin: 01/01/24 07:26 Dose: Not Given Documented By: COTEMA Non-Admin Reason: IV Running Trazodone HCl (Trazodone Hcl 100 Mg Tablet) 100 mg PO BEDTIME PRN PRN Reason: insomnia Vitamin D (Cholecalciferol (Vitamin D3) 25 Mcg Tablet) 25 mcg PO DAILY [facility], [facility] Last Admin: 01/01/24 07:50 Dose: 25 mcg Documented By: ROXANN Labs 01/01/24 06:11 01/01/24 06:11 Labs: Laboratory Results - last 24 hr 12/31/23 12/31/23 12/31/23 16:17 16:38 18:33 MCV MCH MCHC RDW Plt Count MPV Absolute Nucleated RBC Nucleated RBC % (auto) VBG pH 7.45 H VBG pCO2 35 VBG pO2 94 VBG HCO3 24 VBG O2 Saturation 99.0 VBG Base Excess 1.3 Anion Gap Estim Creat Clear Calc Estimated GFR POC Glucose 103 Random Glucose Calcium Total Creatine Kinase Troponin I High Sens 17.2 12/31/23 01/01/24 01/01/24 19:00 06:11 07:47 MCV 90.0 MCH 30.1 MCHC 33.4 RDW 14.6 Plt Count 230 MPV 10.1 Absolute Nucleated RBC 0.000 Nucleated RBC % (auto) 0.0 VBG pH VBG pCO2 VBG pO2 VBG HCO3 VBG O2 Saturation VBG Base Excess Anion Gap 14 Estim Creat Clear Calc 146.8 Estimated GFR > 60 POC Glucose 156 H 104 Random Glucose 98 Calcium 8.7 D Total Creatine Kinase 4541 H Troponin I High Sens 11.8 01/01/24 11:30 MCV MCH MCHC RDW Plt Count MPV Absolute Nucleated RBC Nucleated RBC % (auto) VBG pH VBG pCO2 VBG pO2 VBG HCO3 VBG O2 Saturation VBG Base Excess Anion Gap Estim Creat Clear Calc Estimated GFR POC Glucose 135 H Random Glucose Calcium Total Creatine Kinase Troponin I High Sens Assessment and Plan (1) Rhabdomyolysis: Status: Acute Assessment and Plan: 38-year-old male with a PMH significant for?HTN, HLD, dvs-ghxvlwa-lldtqzqhj type 2 diabetes, polysubstance use disorder, PTSD, bipolar disorder, depression with SI, and multiple inpatient psychiatric hospitalizations who presents to the ED with?increased depression with suicidal ideation. Pt will be admitted to the hospital for treatment and further evaluation of cocaine induced rhabdomyolysis in the setting of patient with SI. Rhabdomyolysis Initial CPK [phone] Likely secondary to cocaine use continue ivf ,moniter CPK IVIS sec to rhabo/dehydration. resolved with hydration Depression with SI Pt comes in after attempting to jump off bridge Increasing depression due to ex-girlfriend who cheated on him with his best friend Continue hydroxyzine, oxcarbazepine, quetiapine, and prazosin 1 on sitter will need Care team consult once medically cleared. Epigastric burning with left-sided chest discomfort Likley secondary to GERD/heartburn trop neg ,ekg seems fine, Continue famotidine Polysubstance use disorder Pt has been using cocaine daily since discharge from [facility] 2 weeks ago Addiction medicine consult Ttx-nycsdog-rhhviscct type 2 diabetes Hold metformin Sliding-scale insulin Full Code DVT Prophylaxis: Lovenox ongoing need for hospitalization of at least two nights for treatment of?cocaine induced rhabdomyolysis-need ivf , CPK , renal function/electrolytes monitering , will need Care team consult once medically cleared. Quality Stroke Does the patient have a stroke diagnosis?: No VTE Prior VTE?: No VTE Risk Level:: Medical - moderate - high VTE Device Contraindication: Treatment Not Indicated VTE Drug Contraindication: N/A - Med Ordered
--- NOTE | 2024-01-01 13:41 | MHC.RECOVRN ---
Met with pt in 347 after consult placed to Addiction Medicine for daily cocaine use. Pt had presented to the ED after being [place] a local bridge where he had planned to jump off to end his life. Prior to CARE Team evaluation, pt medically admitted for rhabdomyolysis. Pt sitting in bed, awake, alert, easily engages in conversation, eating lunch. Pt reports physically feeling sore all over but otherwise comfortable. Pt reports he had been using cocaine x 3 days, 1 ounce total, IN. Prior to that, pt reports last use approx 2 weeks ago. Pt reports during those 2 weeks he had been staying busy and hanging out with ex girlfriend. Pt reports recurrence occurred due to stress in his life. Discussed recovery resources and supports. Pt is interested in medication to help with stimulant cravings. Pt plans to be admitted psychiatrically and review written resources that t/w has provided. Encouraged pt to reach out if needed. Pt denies questions or concerns for t/w. Discussed with Paulina Stanton APRN.
[2024-01-01 14:56] VITALS: BP 129/67; PULSE 70; RESP 18; TEMP 36.7; O2SAT 94
[2024-01-01 15:27] VITALS: BP 129/67; PULSE 69; RESP 18; TEMP 36.6; O2SAT 94
--- NOTE | 2024-01-01 16:21 | MHC.CM.PN ---
CM ATTEMPTED TO SEE PT WHO WAS WITH RN CM TO REVISIT
[2024-01-01 16:22] LABS: Glucose, Whole Blood 117 mg/dL (60-115)
[2024-01-01] MEDS: Lactated Ringers 1,000 ML 125 ML IVCONT (17:58)
[2024-01-01] MEDS: oxyCODONE HCl Immed Release 5 MG TABLET PO (18:06)
--- NOTE | 2024-01-01 18:39 | MHC.RECOVSUP ---
? Reason for consult Recovery support o Current location: [facility] o Identified substance use concern: Cocaine - Support ? Intervention: o Harm reduction discussion ? Plan: o Patient to follow up with [facility] after discharge ? Additional information: Met with patient and we talked about Recovery and the diffrent pathway.. we also had a harm reduction talk.. Patient stated that he [facility].
[2024-01-01 20:14] LABS: Glucose, Whole Blood 117 mg/dL (60-115)
[2024-01-01 20:37] VITALS: BP 130/66
[2024-01-01] MEDS: QUEtiapine Fumarate 300 MG TABLET PO (20:37)
[2024-01-01] MEDS: Prazosin HCL 1 MG CAPSULE 2 MG PO (20:37)
[2024-01-01] MEDS: 0.9 % Sodium Chloride Flush 3 ML SYRINGE IVFLUSH (20:42)
[2024-01-01 23:35] VITALS: BP 129/72; PULSE 79; RESP 16; TEMP 36.4; O2SAT 95
[2024-01-02] MEDS: Lactated Ringers 1,000 ML 125 ML IVCONT ×2 (02:13→11:55)
[2024-01-02 06:52] LABS: Anion Gap 12 (12-20); Blood Urea Nitrogen 13 mg/dL (9-16); Calcium 8.9 mg/dL (8.4-10.2); Carbon Dioxide 26 mmol/L (22-29); Chloride 109 mmol/L (96-108); Creatinine Clr Calc Pharmacy 161.1; Estimated Glomerular Filt Rate > 60; Glucose Random 92 mg/dL (60-115); Potassium 3.9 mmol/L (3.3-5.1); Sodium 143 mmol/L (135-145)
[2024-01-02 07:30] LABS: Glucose, Whole Blood 100 mg/dL (60-115)
[2024-01-02 07:40] VITALS: BP 127/78; PULSE 65; RESP 19; TEMP 36.7; O2SAT 95
[2024-01-02] MEDS: Atorvastatin Calcium 20 MG TABLET PO (09:29)
[2024-01-02] MEDS: SITagliptin Phosphate 50 MG TABLET PO (09:29)
[2024-01-02] MEDS: Cholecalciferol (Vitamin D3) 25 MCG TABLET PO (09:29)
[2024-01-02] MEDS: Losartan Potassium 50 MG TABLET PO (09:29)
[2024-01-02] MEDS: OXcarbazepine 300 MG TABLET PO (09:29)
[2024-01-02] MEDS: Famotidine 20 MG TABLET 40 MG PO (09:29)
[2024-01-02] MEDS: oxyCODONE HCl Immed Release 5 MG TABLET PO (09:37)
[2024-01-02 11:57] LABS: Glucose, Whole Blood 127 mg/dL (60-115)
--- NOTE | 2024-01-02 14:00 | PM.DS ---
DS: Providers Provider Date of Service: 01/02/24 Date of admission: 12/31/23 16:01 Date of discharge: 01/02/24 Primary care physician: None Physician Consults: 12/31/23 15:58 Consult for Sitter Routine Reason for consultation: SI with plan to jump off bridge 12/31/23 16:25 Addiction Medicine Routine Consulting Provider: Addiction Covering Reason for consultation: Daily cocaine use 01/02/24 08:42 Consult to Care Team Routine Comment: Reason for consultation: Med clear , psych placement Consult to Psychiatry Routine Consulting Provider: Psych Covering Reason for consultation: Depression Si Has provider been notified: No Attending physician on discharge: Manisha Lopez Discharging clinician: Manisha Lopez DS: Diagnosis Discharge Diagnosis (1) Rhabdomyolysis: Status: Acute DS: Summary Hospital Course Hospital Course: 38-year-old male with a PMH significant for?HTN, HLD, aab-gcfwkzj-kwofynlwn type 2 diabetes, polysubstance use disorder, PTSD, bipolar disorder, depression with SI, and multiple inpatient psychiatric hospitalizations who presents to the ED with?increased depression with suicidal ideation. Pt with recent inpatient psychiatric admissions here on 10/01-10/12 and then on 11/21-11/27. Reports was most recently admitted to [facility] 2 weeks ago and discharged around 1.5 weeks ago. Since last discharge patient has had increasing depression with suicidal ideation with plan to jump off a bridge. Patient's depression has been exacerbated by thinking about his ex-girlfriend who had an affair with his best friend. Patient also admits to using cocaine daily since discharge, up to an eight-ball. Denies HI. Complains of intermittent substernal, epigastric burning sensation and left-sided ?squeezing? around his arm. No palpitations. States has had 3 episodes of liquid diarrhea since yesterday. No fever, chills, nausea, vomiting, abdominal pain. Denies shortness of breath or difficulty breathing In the ED pt was tachycardic to 137, vitals otherwise stable and WNL. Labs were significant for leukocytosis of 19.6, initial BUN 28 and creatinine 2.17, with repeat BUN 18 and creatinine 1.04, bilirubin 1.1, AST 47, and initial CPK 4194 with repeat 7270. Stable H&H. No significant electrolyte abnormalities. Tox screen positive for cocaine and marijuana. EKG demonstrated sinus tachycardia of [address] elevations or depressions. Pt was treated with 3 L lactated Ringer's and started on maintenance fluids. Pt will be admitted to the hospital for treatment and further evaluation of cocaine induced rhabdomyolysis in the setting of patient with SI. Hospital course: Patient was admitted to the hospital after substance use-has elevated CPK (rhabdomyolysis), some muscle pains, IVIS, in addition patient also has depression, suicidal ideation: Patient was started on IV hydration-patient's CPK is seems to be improved significantly, muscle pains also improving, IVIS improved.Patient was strongly advised for p.o. hydration. Patient was subsequently seen by psych and care team-for recommended to transfer to the psych Service for further management of depression/si. Please monitor CPK and BMP in 1 week. Start back atorvastatin once CPK normalized. plan: Encouraged for hydration p.o., Please monitor CPK and BMP in 1 week. Start back atorvastatin once CPK normalized. Above management discussed with the patient in detail length he understand in agreement with the above plan, time spent 40 minute. In addition above management also discussed with the psych team in detail. Time Attestation Total time managing care of this patient today: 40 mintues. Discharge Coordination Time (in mins): 40 min Quality: Safe Use of Opioids Does Pt have an Active Cancer Diagnosis on the Problem List?: No Quality: Stroke Does the patient have a stroke diagnosis?: No Physical Exam Vital Signs: Vital Signs: Last Vital Signs Temp 98.0 F 01/02/24 07:40 Pulse 65 01/02/24 07:40 Resp 19 01/02/24 07:40 BP 127/78 01/02/24 07:40 Pulse Ox 95 01/02/24 07:40 O2 Del Method Room Air 01/02/24 07:40 BMI result Body Mass Index 37.7 Appearance: Alert.? Oriented X3.? cvs: rrr, [id number] , no murmur res: clear to auscultation ,no rhonchii or wheezing abd: no rebound or guarding ,nt, bs present. ext pulses present , no cyanosis. neuro: axo3 , nonfocal. DS: Data Data Completed and Pending Labs on day of discharge: Laboratory Results - last 24 hr 01/01/24 01/01/24 01/02/24 16:17 20:10 05:21 Hold Purple Top SEE NOTE Sodium 143 Potassium 3.9 Chloride 109 H Carbon Dioxide 26 Anion Gap 12 BUN 13 Creatinine 0.82 Estim Creat Clear Calc 161.1 Estimated GFR > 60 POC Glucose 117 H 117 H Random Glucose 92 Calcium 8.9 Total Creatine Kinase 2358 H 01/02/24 01/02/24 07:26 11:53 Hold Purple Top Sodium Potassium Chloride Carbon Dioxide Anion Gap BUN Creatinine Estim Creat Clear Calc Estimated GFR POC Glucose 100 127 H Random Glucose Calcium Total Creatine Kinase Discharge Plan Discharge Anticipated Discharge Date/Time: 01/02/24 13:52 Patient Disposition: Xfer Psychiatric Hosp Discharge Diagnosis: IVIS, rhabdomyolysis, cocaine use. Referrals: Physician,None [Primary Care Provider] - 1 Week Discharge Medications: Continued hydroxyzine HCl 25 mg Tablet 25 mg PO Q6H PRN (Reason: Anxiety) 30 Days Qty: 60 0RF trazodone 100 mg Tablet 100 mg PO BEDTIME PRN (Reason: insomnia) 30 Days Qty: 30 0RF losartan 50 mg tablet 50 mg PO DAILY 30 Days Qty: 30 0RF metformin 500 mg tablet 500 mg PO BID 30 Days Qty: 60 0RF oxcarbazepine 300 mg tablet 300 mg PO BID 30 Days Qty: 60 0RF melatonin 3 mg tablet 9 mg PO BEDTIME PRN (Reason: insomnia) prazosin 2 mg capsule 2 mg PO BEDTIME quetiapine 150 mg tablet 300 mg PO BEDTIME famotidine 20 mg tablet 40 mg PO DAILY cholecalciferol (vitamin D3) [Vitamin D3] 25 mcg (1,000 unit) Tablet 25 mcg PO DAILY Held atorvastatin 20 mg tablet 20 mg PO DAILY Hold Instructions: Resume on 01/08/24. Discharge Orders: Discharge Order (Routine); Ordered 01/02/24 Ordered By: Manisha Lopez Diet: Advance to usual diet Activity on Discharge: As tolerated Stand Alone Forms: Patient Portal Discharge page Print Language: Telugu Care Plan Goals: Patient was admitted to the hospital after substance use-has elevated CPK (rhabdomyolysis), some muscle pains, IVIS, in addition patient also has depression, suicidal ideation: Patient was started on IV hydration-patient's CPK is seems to be improved significantly, muscle pains also improving, IVIS improved.Patient was strongly advised for p.o. hydration. Patient was subsequently seen by psych and care team-for recommended to transfer to the psych Service for further management of depression/si. Please monitor CPK and BMP in 1 week. Start back atorvastatin once CPK normalized. Above management discussed with the patient in detail length he understand in agreement with the above plan, time spent 40 minute. In addition above management also discussed with the psych team in detail. Health Concerns: As above. Plan of Treatment: As above. Assessment: As above.
--- NOTE | 2024-01-02 16:14 | MHC.CM.PN ---
PT REPORTS HE WAS LIVING WITH HIS EX-GIRLFRIEND SOCIAL SERVICES AIDE, BUT IS UNSURE IF HE CAN RETURN HE DENIES BEING CONNECTED TO ANY COMMUNITY/HOME SERVICES AND USES NO DME PT DOES NOT HAVE A PCP AND DECLINES TO COMPLETE A HCP PT IS AWARE HE WILL BE TRANSFERRED TO INPATIENT PSYCH AND SAYS HE FEELS THAT IS WHAT HE NEEDS AT THIS TIME PT WILL TRANSFER TODAY PENDING BED OPENING
== END 2024-01-02 14:20 | DRG 816 ==
LOC: HO.ED 12-31 13:37 → HO.EDOVER 12-31 16:24 → HO.S3 12-31 18:16
PROVIDERS: Internal Medicine; Admitting Provider Student in an Organized Health Care Education/Training Program; Emergency Provider Emergency Medicine Emergency Medical Services; Visit Provider Internal Medicine
DX: T40.5X1A Poisoning by cocaine, accidental (unintentional), initial encounter (principal); M62.82 Rhabdomyolysis; N17.9 Acute kidney failure, unspecified; R45.851 Suicidal ideations; E11.9 Type 2 diabetes mellitus without complications; F32.9 Major depressive disorder, single episode, unspecified; Z63.0 Problems in relationship with spouse or partner; E86.0 Dehydration; F19.90 Other psychoactive substance use, unspecified, uncomplicated; F17.210 Nicotine dependence, cigarettes, uncomplicated; K21.9 Gastro-esophageal reflux disease without esophagitis; Z71.6 Tobacco abuse counseling; Z79.899 Other long term (current) drug therapy
CPT/HCPCS: 36415; 80048; 80053; 80307; 81001; 82550; 82803; 82947; 84484; 85025; 85027; 93005; 99285; J1650; J7120; S9485

== ENCOUNTER → 2023-12-30 23:16 | Outpatient (BNV) | payer OTHER, SELFPAY | PROVIDERS: Admitting Provider Student in an Organized Health Care Education/Training Program; Emergency Provider Emergency Medicine Emergency Medical Services; Visit Provider Internal Medicine | DX: R00.0 Tachycardia, unspecified (principal); R94.31 Abnormal electrocardiogram [ECG] [EKG] | CPT/HCPCS: 93010 ==

== ENCOUNTER 2023-12-31 16:01 | Outpatient (BNV) | payer MEDICAID, SELFPAY | END 2023-12-31 16:04 | PROVIDERS: Admitting Provider Student in an Organized Health Care Education/Training Program; Emergency Provider Emergency Medicine Emergency Medical Services; Visit Provider Internal Medicine | DX: R94.31 Abnormal electrocardiogram [ECG] [EKG] (principal) | CPT/HCPCS: 93010 ==

== ENCOUNTER → 2023-12-31 16:01 | Outpatient (BNV) | payer OTHER, SELFPAY | PROVIDERS: Admitting Provider Student in an Organized Health Care Education/Training Program; Emergency Provider Emergency Medicine Emergency Medical Services; Visit Provider Student in an Organized Health Care Education/Training Program | DX: M62.82 Rhabdomyolysis (principal) | CPT/HCPCS: 99223; 99232; 99239 ==

== ENCOUNTER 2024-01-02 14:39 | Inpatient (IN) | payer OTHER, SELFPAY ==
--- NOTE | 2024-01-02 15:03 | PHA.MEDREC ---
Addendum entered by Dorita Concepcion 01/02/24 15:06: note from 12-31-23 Pharmacy has completed the medication reconciliation. Spoke to patient to confirm med list. Patient stated he isn't taking Januvia 50 mg daily Original Note: Pharmacy Consult ? Medication Reconciliation Pharmacy has completed the medication reconciliation. Patient was here on 12-31-23 confirmed med list with patient when he was here last and utilized claim to confirm med list.
[2024-01-02 15:18] VITALS: BP 170/96; PULSE 82; RESP 18; TEMP 36.2; O2SAT 96
[2024-01-02 15:45] VITALS: BMI 37.7
--- NOTE | 2024-01-02 17:30 | PC.ADMIT ---
Sabina is a 38 year old man who arrived on M5 on 01/02/24 at 1313 from S3 (medical floor) for treatment of unspecified depressive disorder and cocaine use disorder. Upon admission assessment, Sabina is calm, cooperative and pleasant. He reports that he is having difficulty due to recent break up with his girlfriend, which caused him to relapse on cocaine use. He reports using about 0.5 ounces of cocaine but was sober until recently. He states that he used with the intent to OD but this was unsuccessful and reports he doesn't know how he feels about being unsuccessful. His tox screen was positive for cocaine and marijuana. He reports that he was hopeful when he left here from his last admission but now does not feel that hope stating I am 38 years old and have nothing to show for it. He exhibits some good humor but is depressed. He denies HI/AVH but is unable to deny SI, no plan or intent while on the unit. He reports his goal of this admission is to become mentally stable. He has a medical history of T2DM, HTN and HLD. He has no current complaints. Skin check was preformed and was unremarkable except for wound on L thumb and forefinger with no signs of infection. He reports these wounds are from when he was using and heating up his cocaine. He was placed on 15 minute checks for safety.
[2024-01-02 17:57] VITALS: BP 148/84
[2024-01-02] MEDS: Losartan Potassium 50 MG TABLET PO (17:57)
[2024-01-02 20:00] VITALS: BP 147/94; PULSE 91; RESP 16; TEMP 36.4; O2SAT 96
[2024-01-02] MEDS: OXcarbazepine 300 MG TABLET PO (21:04)
[2024-01-02] MEDS: Melatonin 3 MG TABLET 9 MG PO (21:04)
[2024-01-02] MEDS: traZODone HCL 100 MG TABLET PO (21:04)
[2024-01-02] MEDS: metFORMIN HCl 500 MG TABLET PO (21:04)
[2024-01-02] MEDS: Prazosin HCL 1 MG CAPSULE 2 MG PO (21:04)
[2024-01-02] MEDS: QUEtiapine Fumarate 300 MG TABLET PO (21:04)
[2024-01-03 08:20] VITALS: BP 131/74; PULSE 68; RESP 16; TEMP 36.4; O2SAT 98
[2024-01-03] MEDS: Cholecalciferol (Vitamin D3) 25 MCG TABLET PO (08:59)
[2024-01-03] MEDS: metFORMIN HCl 500 MG TABLET PO ×2 (08:59→21:23)
[2024-01-03] MEDS: Atorvastatin Calcium 20 MG TABLET PO (08:59)
[2024-01-03] MEDS: OXcarbazepine 300 MG TABLET PO ×2 (08:59→21:23)
[2024-01-03] MEDS: Famotidine 20 MG TABLET 40 MG PO (09:00)
[2024-01-03 09:01] VITALS: BP 131/74
[2024-01-03] MEDS: Losartan Potassium 50 MG TABLET PO (09:01)
[2024-01-03 09:08] LABS: Alanine Aminotransferase 43 U/L (0-40); Albumin Level 3.5 g/dL (3.5-5.0); Alkaline Phosphatase 73 U/L (39-117); Anion Gap 12 (12-20); Aspartate Amino Transferase 46 U/L (5-37); Bilirubin Total 0.2 mg/dL (0.0-1.0); Blood Urea Nitrogen 15 mg/dL (9-16); Calcium 9.9 mg/dL (8.4-10.2); Carbon Dioxide 29 mmol/L (22-29); Chloride 105 mmol/L (96-108); Cholesterol 148 mg/dL (<200); Creatinine Clr Calc Pharmacy 150.1; Estimated Glomerular Filt Rate > 60; Glucose Fasting 118 mg/dL (60-99); HDL Cholesterol 52 mg/dL (>40); LDL Cholesterol Calculated 68 mg/dL (<100); Potassium 3.9 mmol/L (3.3-5.1); Sodium 142 mmol/L (135-145); Total Protein 6.6 g/dL (6.5-8.0); Triglycerides 143 mg/dL (<150)
[2024-01-03 09:24] LABS: Thyroid Stimulating Hormone 0.71 uIU/mL (0.32-4.0)
[2024-01-03 09:31] LABS: Vitamin B12 425 pg/mL (200-900)
--- NOTE | 2024-01-03 11:36 | HO.PSYADMNOT ---
HPI Date of Service: 01/03/24 Chief Complaint: SI Sources of Information: patient interviewed, chart reviewed and crisis/core team assessment reviewed HPI Subjective Notes: Fernandez Warning and Conditional Voluntary Narrative: Patient is a 38-year-old male with history of depression PTSD, mood lability, cocaine use disorder, recently discharged a month ago who presents for depression and SI in the face of broken relationship and relapse with cocaine. Patient transferred from medical floor where he was treated for IVIS, rhabdomyolysis secondary to excessive cocaine use. Patient reports that on medication regimen he was doing overall well however he had gone back to his girlfriend's instead of a program and thinks that the environment he was in was triggering and emotions started to increase; he went to [place] to stay with another female friend and ended up relapsing on cocaine. He continued taking medications throughout this past month however his cocaine abuse increased. Patient's girlfriend moved on to another person which depressed patient and brought up thoughts of suicide. He walked to the bridge though he says he was not really intending to jump. Patient instead self presented. Past Psychiatric History: SA: one prior attempt, pt pulled trigger to firearm and it did not go off. 1st inpatient psychiatric hospitalization. pt denies any hx of outpatient psychiatric providers. Medical Evaluation Reviewed: Yes [facility] Medical History (Updated 12/31/23 @ 16:20 by MONAE Johnson) GERD (gastroesophageal reflux disease) Non-insulin dependent type 2 diabetes mellitus Hypertension Family History: Mother depression Social History: -Pt reports he was living with his girlfriend, her 30 y/o son and the girlfriends brother in an apartment in [place]; he reports he is currently homeless. , no children, unemployed. -patient's mother when he was 10 years old; he grew up with his grandmother and his aunt who are now both -no siblings Substance History: Excessive cocaine abuse for the past 3 weeks Trauma History: Endorses Diagnostics Vital Signs (24Hr): Vital Signs - 24 hr 01/02/24 15:18 01/02/24 17:57 01/02/24 20:00 Temperature 97.1 F 97.6 F Pulse Rate 82 91 Respiratory Rate 18 16 Blood Pressure 170/96 H 148/84 H 147/94 H Pulse Oximetry 96 96 Oxygen Delivery Method Room Air Room Air 01/03/24 08:20 01/03/24 09:01 Temperature 97.6 F Pulse Rate 68 Respiratory Rate 16 Blood Pressure 131/74 131/74 Pulse Oximetry 98 Oxygen Delivery Method Room Air BMI result Body Mass Index 37.7 Labs 01/03/24 08:09 Labs: Laboratory Results - last 48 hr 01/03/24 08:09 Sodium 142 Potassium 3.9 Chloride 105 Carbon Dioxide 29 Anion Gap 12 BUN 15 Creatinine 0.88 Estim Creat Clear Calc 150.1 Estimated GFR > 60 Fasting Glucose 118 H Calcium 9.9 D Total Bilirubin 0.2 AST 46 H ALT 43 H Alkaline Phosphatase 73 Total Protein 6.6 Albumin 3.5 Triglycerides 143 Cholesterol 148 LDL Cholesterol, Calc 68 HDL Cholesterol 52 Vitamin B12 425 TSH 0.71 Meds/Allergies Meds Home Medications ?Medication ?Instructions ?Recorded ?Confirmed ?Type atorvastatin 20 mg tablet 20 mg PO DAILY 12/31/23 01/02/24 History cholecalciferol (vitamin D3) 25 25 mcg PO DAILY 12/31/23 01/02/24 History mcg (1,000 unit) tablet (Vitamin D3) famotidine 20 mg tablet 40 mg PO DAILY 12/31/23 01/02/24 History melatonin 3 mg tablet 9 mg PO BEDTIME PRN insomnia 12/31/23 01/02/24 History prazosin 2 mg capsule 2 mg PO BEDTIME 12/31/23 01/02/24 History quetiapine 150 mg tablet 300 mg PO BEDTIME 12/31/23 01/02/24 History Allergies Allergies Allergy/AdvReac Type Severity Reaction Status Date / Time No Known Allergies Allergy Verified 12/30/23 23:10 Mental Status Exam Mental Status Exam Narrative: Pt is alert and oriented; behavior is cooperative, friendly and calm; patient is not in distress; dressed in hospital attire, facial tattoos facial piercings; unkempt;described as depressed and affect congruent, downcast; eye contact appropriate; Speech is normal rate, volume and prosody and not pressured; psychomotor retardation present; thought process is organized and goal directed; Thought content is on tx; otherwise pertinent to relevant topics and without any delusional content, paranoid ideations or grandiosity; No SI; no HI; currently no AH Patients insight and judgment impaired Assessment & Plan Assessment & Plan (1) MDD (major depressive disorder), recurrent episode: Status: Acute Code(s): F33.9 - Major depressive disorder, recurrent, unspecified (2) PTSD (post-traumatic stress disorder): Status: Acute Code(s): F43.10 - Post-traumatic stress disorder, unspecified (3) Cocaine use disorder: Status: Acute Code(s): F14.10 - Cocaine abuse, uncomplicated (4) Bipolar disorder: Status: Acute Code(s): F31.9 - Bipolar disorder, unspecified Plan HPI: Patient is a 38-year-old male with history of depression PTSD, mood lability, cocaine use disorder, recently discharged a month ago who presents for depression and SI in the face of broken relationship and relapse with cocaine. Patient transferred from medical floor where he was treated for IVIS, rhabdomyolysis secondary to excessive cocaine use. Patient reports that on medication regimen he was doing overall well however he had gone back to his girlfriend's instead of a program and thinks that the environment he was in was triggering and emotions started to increase; he went to [place] to stay with another female friend and ended up relapsing on cocaine. He continued taking medications throughout this past month however his cocaine abuse increased. Patient's girlfriend moved on to another person which depressed patient and brought up thoughts of suicide. He walked to the bridge though he says he was not really intending to jump. Patient instead self presented. Patient thinks it was impulsive to discharge to his girlfriend's last time acknowledges that he needs a program in order to stay sober. Plan: CV Q 15 minute checks Seroquel 300 mg q.h.s. Trileptal 300 mg b.i.d. Prazosin 7 mg q.h.s. Trazodone 100 mg q.h.s. Atorvastatin 20 mg daily Famotidine 40 mg daily Losartan 50 mg daily Metformin 50 mg b.i.d. Januvia 50 mg daily Reviewed labs and kidney function WNL Patient educated on: diagnosis, medication risk/benefits, substance abuse, therapeutic strategies and medical condition Informed Consent: understands Reason for continued inpatient stay Substantial Risk for: rapid decompensation Statement Statement: I have reviewed the history and physical and performed a pertinent examination on my patient. No changes have occurred unless specified. If the History and Physical was not performed prior to admission, the Hospitalist's service will be consulted for completing the admission physical. Time Spent With Patient Time: Total time managing care of this patient today ____ minutes.
[2024-01-03] MEDS: SITagliptin Phosphate 50 MG TABLET PO (17:16)
[2024-01-03 19:37] VITALS: BP 142/81; PULSE 83; RESP 16; TEMP 36.6; O2SAT 96
[2024-01-03] MEDS: QUEtiapine Fumarate 300 MG TABLET PO (21:23)
[2024-01-03] MEDS: Melatonin 3 MG TABLET 9 MG PO (21:23)
[2024-01-03] MEDS: traZODone HCL 100 MG TABLET PO (21:23)
[2024-01-04] MEDS: Magnesium Hydrox/Alum Hydrox 30 ML ORAL.SUSP PO ×2 (06:00→08:38)
[2024-01-04 07:30] VITALS: BP 139/69; PULSE 80; RESP 15; TEMP 36.4; O2SAT 94
[2024-01-04 08:39] VITALS: BP 139/69
[2024-01-04] MEDS: Atorvastatin Calcium 20 MG TABLET PO (08:39)
[2024-01-04] MEDS: Famotidine 20 MG TABLET 40 MG PO (08:39)
[2024-01-04] MEDS: Losartan Potassium 50 MG TABLET PO (08:39)
[2024-01-04] MEDS: Cholecalciferol (Vitamin D3) 25 MCG TABLET PO (08:39)
[2024-01-04] MEDS: SITagliptin Phosphate 50 MG TABLET PO (08:39)
[2024-01-04] MEDS: metFORMIN HCl 500 MG TABLET PO ×2 (08:39→21:23)
[2024-01-04] MEDS: OXcarbazepine 300 MG TABLET PO ×2 (08:39→21:19)
--- NOTE | 2024-01-04 10:12 | HO.PSYCHPN ---
Subjective Subjective Date of Service: 01/04/24 Reason For Visit: SI Interim History: Met with patient; discussed with team Reports doing a little better and slept last night however patient nauseous, vomiting and with diarrhea distracting from further conversation. No other symptoms Zofran/Imodium ordered C diff ordered Mental Status Exam Mental Status Exam Narrative: Pt is alert and oriented; behavior is cooperative, friendly and calm; patient is not in distress; dressed in hospital attire, facial tattoos facial piercings; unkempt;described as depressed and affect congruent, downcast; eye contact appropriate; Speech is normal rate, volume and prosody and not pressured; psychomotor retardation present; thought process is organized and goal directed; Thought content is on tx; otherwise pertinent to relevant topics and without any delusional content, paranoid ideations or grandiosity; No SI; no HI; currently no AH Patients insight and judgment impaired Diagnostics Vital Signs (24Hr): Vital Signs - 24 hr 01/03/24 19:37 01/04/24 07:30 01/04/24 08:39 Temperature 97.9 F 97.6 F Pulse Rate 83 80 Respiratory Rate 16 15 Blood Pressure 142/81 H 139/69 139/69 Pulse Oximetry 96 94 Oxygen Delivery Method Room Air Room Air BMI result Body Mass Index 37.7 Labs 01/03/24 08:09 Labs: Laboratory Results - last 48 hr 01/03/24 08:09 Sodium 142 Potassium 3.9 Chloride 105 Carbon Dioxide 29 Anion Gap 12 BUN 15 Creatinine 0.88 Estim Creat Clear Calc 150.1 Estimated GFR > 60 Fasting Glucose 118 H Calcium 9.9 D Total Bilirubin 0.2 AST 46 H ALT 43 H Alkaline Phosphatase 73 Total Protein 6.6 Albumin 3.5 Triglycerides 143 Cholesterol 148 LDL Cholesterol, Calc 68 HDL Cholesterol 52 Vitamin B12 425 TSH 0.71 Medications Medications Current Medications Acetaminophen (Acetaminophen 325 Mg Tablet) 650 mg PO Q6H PRN PRN Reason: Headache/Pain Mild Scale (1-3) Al Hydroxide/Mg Hydroxide (Magnesium Hydrox/Alum Hydrox 30 Ml Oral.Susp) 30 ml PO Q6H PRN PRN Reason: Heartburn/Nausea Last Admin: 01/04/24 08:38 Dose: 30 ml Atorvastatin Calcium (Atorvastatin Calcium 20 Mg Tablet) 20 mg PO DAILY ISAÍAS Last Admin: 01/04/24 08:39 Dose: 20 mg Famotidine (Famotidine 20 Mg Tablet) 40 mg PO DAILY [facility] Last Admin: 01/04/24 08:39 Dose: 40 mg Hydroxyzine HCl (Hydroxyzine Hcl 25 Mg Tablet) 25 mg PO Q6H PRN PRN Reason: Anxiety Hydroxyzine HCl (Hydroxyzine Hcl 25 Mg Tablet) 25 mg PO Q6H PRN PRN Reason: Anxiety Losartan Potassium (Losartan Potassium 50 Mg Tablet) 50 mg PO DAILY [facility]; Protocol Last Admin: 01/04/24 08:39 Dose: 50 mg Magnesium Hydroxide (Milk Of Magnesia 30 Ml Oral.Susp) 30 ml PO DAILY PRN PRN Reason: Constipation Melatonin (Melatonin 3 Mg Tablet) 9 mg PO BEDTIME PRN PRN Reason: insomnia Last Admin: 01/03/24 21:23 Dose: 9 mg Metformin HCl (Metformin Hcl 500 Mg Tablet) 500 mg PO BID [facility] Last Admin: 01/04/24 08:39 Dose: 500 mg Oxcarbazepine (Oxcarbazepine 300 Mg Tablet) 300 mg PO BID [facility] Last Admin: 01/04/24 08:39 Dose: 300 mg Prazosin HCl 5 mg/ Prazosin (HCl 2 mg) 7 mg PO BEDTIME [facility] Last Admin: 01/03/24 21:23 Dose: 7 mg Quetiapine Fumarate (Quetiapine Fumarate 300 Mg Tablet) 300 mg PO BEDTIME [facility] Last Admin: 01/03/24 21:23 Dose: 300 mg Sitagliptin Phosphate (Sitagliptin Phosphate 50 Mg Tablet) 50 mg PO DAILY [facility] Last Admin: 01/04/24 08:39 Dose: 50 mg Trazodone HCl (Trazodone Hcl 50 Mg Tablet) 50 mg PO BEDTIME MRX1 PRN PRN Reason: Insomnia Trazodone HCl (Trazodone Hcl 100 Mg Tablet) 100 mg PO BEDTIME PRN PRN Reason: insomnia Last Admin: 01/03/24 21:23 Dose: 100 mg Vitamin D (Cholecalciferol (Vitamin D3) 25 Mcg Tablet) 25 mcg PO DAILY [facility] Last Admin: 01/04/24 08:39 Dose: 25 mcg Allergies Allergies Allergy/AdvReac Type Severity Reaction Status Date / Time No Known Allergies Allergy Verified 12/30/23 23:10 Assessment & Plan Assessment & Plan (1) MDD (major depressive disorder), recurrent episode: Status: Acute Code(s): F33.9 - Major depressive disorder, recurrent, unspecified (2) PTSD (post-traumatic stress disorder): Status: Acute Code(s): F43.10 - Post-traumatic stress disorder, unspecified (3) Cocaine use disorder: Status: Acute Code(s): F14.10 - Cocaine abuse, uncomplicated (4) Bipolar disorder: Status: Acute Code(s): F31.9 - Bipolar disorder, unspecified Plan HPI: Patient is a 38-year-old male with history of depression PTSD, mood lability, cocaine use disorder, recently discharged a month ago who presents for depression and SI in the face of broken relationship and relapse with cocaine. Patient transferred from medical floor where he was treated for IVIS, rhabdomyolysis secondary to excessive cocaine use. Patient reports that on medication regimen he was doing overall well however he had gone back to his girlfriend's instead of a program and thinks that the environment he was in was triggering and emotions started to increase; he went to [place] to stay with another female friend and ended up relapsing on cocaine. He continued taking medications throughout this past month however his cocaine abuse increased. Patient's girlfriend moved on to another person which depressed patient and brought up thoughts of suicide. He walked to the bridge though he says he was not really intending to jump. Patient instead self presented. Patient thinks it was impulsive to discharge to his girlfriend's last time acknowledges that he needs a program in order to stay sober. Hospital course: 01/03 Reports doing a little better and slept last night however patient nauseous, vomiting and with diarrhea distracting from further conversation. No other symptoms Zofran/Imodium ordered C diff ordered Plan: CV Q 15 minute checks Seroquel 300 mg q.h.s. Trileptal 300 mg b.i.d. Prazosin 7 mg q.h.s. Trazodone 100 mg q.h.s. Atorvastatin 20 mg daily Famotidine 40 mg daily Losartan 50 mg daily Metformin 50 mg b.i.d. Januvia 50 mg daily Reviewed labs and kidney function WNL Patient educated on: diagnosis, medication risk/benefits and medical condition Informed Consent: understands Reason for continued inpatient stay Substantial Risk for: rapid decompensation Time Spent With Patient Time: Total time managing care of this patient today ____ minutes.
[2024-01-04] MEDS: Loperamide HCl 2 MG CAPSULE 4 MG PO ×3 (11:56→22:01)
[2024-01-04] MEDS: Ondansetron ODT 4 MG TAB.RAPDIS TRANSLINGU (11:57)
[2024-01-04] MEDS: Loperamide HCl 2 MG CAPSULE PO (12:56)
--- NOTE | 2024-01-04 12:57 | PC.NURSE ---
Pt reports diarrhea x9 since 229, as well as nausea and acid reflux. Several PRN's given to address these symptoms and they have all been ineffective thus far. Information reported to Dr. Ramires via [employer].
[2024-01-04] MEDS: Ondansetron ODT 8 MG TAB.RAPDIS TRANSLINGU (14:57)
[2024-01-04] MEDS: Calcium Carbonate 750 MG TAB.CHEW PO (14:57)
[2024-01-04 17:15] LABS: CDiff Gene PCR NEGATIVE (Negative)
--- NOTE | 2024-01-04 19:06 | PC.NURSE ---
This pt reports that he has had diarrhea 20x today. VSS, CDiff negative, nausea has subsided, Loperamide utilized multiple times. This scientific technical writer reported this information to Dr. Smith via [email or web address]. Answer pending.
[2024-01-04 20:00] VITALS: BP 119/65; PULSE 85; RESP 15; TEMP 36.4; O2SAT 95
[2024-01-04] MEDS: Famotidine 20 MG TABLET PO (21:18)
[2024-01-04] MEDS: QUEtiapine Fumarate 300 MG TABLET PO (21:19)
[2024-01-04] MEDS: hydrOXYzine HCL 25 MG TABLET PO (22:02)
[2024-01-04] MEDS: traZODone HCL 100 MG TABLET PO (22:02)
[2024-01-04] MEDS: Ondansetron ODT 4 MG TAB.RAPDIS 8 MG TRANSLINGU (22:02)
[2024-01-04] MEDS: Melatonin 3 MG TABLET 9 MG PO (22:02)
[2024-01-05 08:00] VITALS: BP 115/57; PULSE 72; RESP 16; TEMP 36.2; O2SAT 96
--- NOTE | 2024-01-05 08:05 | HO.PSYCHPN ---
Subjective Subjective Date of Service: 01/05/24 Reason For Visit: SI Interim History: Met with patient; discussed with team Patient remains nauseous but vomiting has subsided and no longer with loose stool. Patient reports anxiety and depression remain; saw a shadow figures out of the corner of his eye which scared him and because of this Asks for Seroquel to be increased seroquel 350mg Mental Status Exam Mental Status Exam Narrative: Pt is alert and oriented; behavior is cooperative, friendly and calm; patient is not in distress; dressed in hospital attire, facial tattoos facial piercings; unkempt;described as anxious and affect congruent, downcast; eye contact appropriate; Speech is normal rate, volume and prosody and not pressured; psychomotor retardation present; thought process is organized and goal directed; Thought content is on tx; otherwise pertinent to relevant topics and without any delusional content, paranoid ideations or grandiosity; No SI; no HI; shadow figure but no AH Patients insight and judgment impaired Diagnostics Vital Signs (24Hr): Vital Signs - 24 hr 01/04/24 08:39 01/04/24 20:00 Temperature 97.5 F Pulse Rate 85 Respiratory Rate 15 Blood Pressure 139/69 119/65 Pulse Oximetry 95 BMI result Body Mass Index 37.7 Labs 01/03/24 08:09 Labs: Laboratory Results - last 48 hr 01/03/24 01/04/24 08:09 16:05 Sodium 142 Potassium 3.9 Chloride 105 Carbon Dioxide 29 Anion Gap 12 BUN 15 Creatinine 0.88 Estim Creat Clear Calc 150.1 Estimated GFR > 60 Fasting Glucose 118 H Calcium 9.9 D Total Bilirubin 0.2 AST 46 H ALT 43 H Alkaline Phosphatase 73 Total Protein 6.6 Albumin 3.5 Triglycerides 143 Cholesterol 148 LDL Cholesterol, Calc 68 HDL Cholesterol 52 Vitamin B12 425 TSH 0.71 C. difficile Tox B Gene NEGATIVE Medications Medications Current Medications Acetaminophen (Acetaminophen 325 Mg Tablet) 650 mg PO Q6H PRN PRN Reason: Headache/Pain Mild Scale (1-3) Al Hydroxide/Mg Hydroxide (Magnesium Hydrox/Alum Hydrox 30 Ml Oral.Susp) 30 ml PO Q6H PRN PRN Reason: Heartburn/Nausea Last Admin: 01/04/24 08:38 Dose: 30 ml Atorvastatin Calcium (Atorvastatin Calcium 20 Mg Tablet) 20 mg PO DAILY ISAÍAS Last Admin: 01/04/24 08:39 Dose: 20 mg Calcium Carbonate (Calcium Carbonate 750 Mg Tab.Chew) 750 mg PO Q4H PRN PRN Reason: continued GERD Famotidine (Famotidine 20 Mg Tablet) 20 mg PO BID [facility] Last Admin: 01/04/24 21:18 Dose: 20 mg Hydroxyzine HCl (Hydroxyzine Hcl 25 Mg Tablet) 25 mg PO Q6H PRN PRN Reason: Anxiety Last Admin: 01/04/24 22:02 Dose: 25 mg Loperamide HCl (Loperamide Hcl 2 Mg Capsule) 4 mg PO Q4H PRN PRN Reason: Diarrhea Last Admin: 01/04/24 22:01 Dose: 4 mg Losartan Potassium (Losartan Potassium 50 Mg Tablet) 50 mg PO DAILY [facility]; Protocol Last Admin: 01/04/24 08:39 Dose: 50 mg Magnesium Hydroxide (Milk Of Magnesia 30 Ml Oral.Susp) 30 ml PO DAILY PRN PRN Reason: Constipation Melatonin (Melatonin 3 Mg Tablet) 9 mg PO BEDTIME PRN PRN Reason: insomnia Last Admin: 01/04/24 22:02 Dose: 9 mg Metformin HCl (Metformin Hcl 500 Mg Tablet) 500 mg PO BID [facility] Last Admin: 01/04/24 21:23 Dose: 500 mg Ondansetron HCl (Ondansetron Odt 4 Mg Tab.Rapdis) 8 mg TRANSLINGU Q6H PRN PRN Reason: Nausea and Vomiting Last Admin: 01/04/24 22:02 Dose: 8 mg Oxcarbazepine (Oxcarbazepine 300 Mg Tablet) 300 mg PO BID [facility] Last Admin: 01/04/24 21:19 Dose: 300 mg Prazosin HCl 5 mg/ Prazosin (HCl 2 mg) 7 mg PO BEDTIME [facility] Last Admin: 01/04/24 21:19 Dose: 7 mg Quetiapine Fumarate (Quetiapine Fumarate 300 Mg Tablet) 300 mg PO BEDTIME [facility] Last Admin: 01/04/24 21:19 Dose: 300 mg Sitagliptin Phosphate (Sitagliptin Phosphate 50 Mg Tablet) 50 mg PO DAILY [facility] Last Admin: 01/04/24 08:39 Dose: 50 mg Trazodone HCl (Trazodone Hcl 50 Mg Tablet) 50 mg PO BEDTIME MRX1 PRN PRN Reason: Insomnia Trazodone HCl (Trazodone Hcl 100 Mg Tablet) 100 mg PO BEDTIME PRN PRN Reason: insomnia Last Admin: 01/04/24 22:02 Dose: 100 mg Vitamin D (Cholecalciferol (Vitamin D3) 25 Mcg Tablet) 25 mcg PO DAILY [facility] Last Admin: 01/04/24 08:39 Dose: 25 mcg Allergies Allergies Allergy/AdvReac Type Severity Reaction Status Date / Time No Known Allergies Allergy Verified 12/30/23 23:10 Assessment & Plan Assessment & Plan (1) MDD (major depressive disorder), recurrent episode: Status: Acute Code(s): F33.9 - Major depressive disorder, recurrent, unspecified (2) PTSD (post-traumatic stress disorder): Status: Acute Code(s): F43.10 - Post-traumatic stress disorder, unspecified (3) Cocaine use disorder: Status: Acute Code(s): F14.10 - Cocaine abuse, uncomplicated (4) Bipolar disorder: Status: Acute Code(s): F31.9 - Bipolar disorder, unspecified Plan HPI: Patient is a 38-year-old male with history of depression PTSD, mood lability, cocaine use disorder, recently discharged a month ago who presents for depression and SI in the face of broken relationship and relapse with cocaine. Patient transferred from medical floor where he was treated for IVIS, rhabdomyolysis secondary to excessive cocaine use. Patient reports that on medication regimen he was doing overall well however he had gone back to his girlfriend's instead of a program and thinks that the environment he was in was triggering and emotions started to increase; he went to [place] to stay with another female friend and ended up relapsing on cocaine. He continued taking medications throughout this past month however his cocaine abuse increased. Patient's girlfriend moved on to another person which depressed patient and brought up thoughts of suicide. He walked to the bridge though he says he was not really intending to jump. Patient instead self presented. Patient thinks it was impulsive to discharge to his girlfriend's last time acknowledges that he needs a program in order to stay sober. Hospital course: 01/03 Reports doing a little better and slept last night however patient nauseous, vomiting and with diarrhea distracting from further conversation. No other symptoms Zofran/Imodium ordered C diff ordered 01/04 nausea and vomiting subsiding; loose stool subsiding; saw shadow figure out the corner of his eye and asks for Seroquel to be increased to 350 mg C diff -negative Plan: CV Q 15 minute checks Increase to Seroquel 350 mg q.h.s. Trileptal 300 mg b.i.d. Prazosin 7 mg q.h.s. Trazodone 100 mg q.h.s. Atorvastatin 20 mg daily Famotidine 40 mg daily Losartan 50 mg daily Metformin 50 mg b.i.d. Januvia 50 mg daily Reviewed labs and kidney function WNL Patient educated on: diagnosis, medication risk/benefits and medical condition Informed Consent: understands Reason for continued inpatient stay Substantial Risk for: rapid decompensation Time Spent With Patient Time: Total time managing care of this patient today ____ minutes.
[2024-01-05] MEDS: Loperamide HCl 2 MG CAPSULE 4 MG PO (09:36)
[2024-01-05] MEDS: Magnesium Hydrox/Alum Hydrox 30 ML ORAL.SUSP PO (09:39)
[2024-01-05] MEDS: Ondansetron ODT 4 MG TAB.RAPDIS 8 MG TRANSLINGU (09:39)
[2024-01-05] MEDS: Atorvastatin Calcium 20 MG TABLET PO (13:24)
[2024-01-05] MEDS: OXcarbazepine 300 MG TABLET PO ×2 (13:24→21:54)
[2024-01-05] MEDS: Losartan Potassium 50 MG TABLET PO (13:24)
[2024-01-05] MEDS: Famotidine 20 MG TABLET PO ×2 (13:25→21:54)
[2024-01-05] MEDS: SITagliptin Phosphate 50 MG TABLET PO (13:25)
[2024-01-05] MEDS: Cholecalciferol (Vitamin D3) 25 MCG TABLET PO (13:25)
[2024-01-05] MEDS: metFORMIN HCl 500 MG TABLET PO ×2 (13:25→21:54)
[2024-01-05 20:00] VITALS: BP 107/53; PULSE 106; TEMP 35.8; O2SAT 95
[2024-01-05] MEDS: traZODone HCL 100 MG TABLET PO (21:53)
[2024-01-05] MEDS: QUEtiapine Fumarate 50 MG TABLET PO (21:54)
[2024-01-05] MEDS: QUEtiapine Fumarate 300 MG TABLET PO (21:54)
[2024-01-06 08:00] VITALS: BP 116/56; PULSE 77; RESP 17; TEMP 36.4; O2SAT 95
[2024-01-06] MEDS: metFORMIN HCl 500 MG TABLET PO ×2 (08:16→21:27)
[2024-01-06] MEDS: Cholecalciferol (Vitamin D3) 25 MCG TABLET PO (08:16)
[2024-01-06] MEDS: Losartan Potassium 50 MG TABLET PO (08:16)
[2024-01-06] MEDS: OXcarbazepine 300 MG TABLET PO ×2 (08:16→21:27)
[2024-01-06] MEDS: SITagliptin Phosphate 50 MG TABLET PO (08:16)
[2024-01-06] MEDS: Atorvastatin Calcium 20 MG TABLET PO (08:16)
[2024-01-06] MEDS: Famotidine 20 MG TABLET PO ×2 (08:16→21:27)
[2024-01-06] MEDS: Loperamide HCl 2 MG CAPSULE 4 MG PO (09:50)
--- NOTE | 2024-01-06 09:51 | P.PNPSI_ITS ---
Subjective Subjective Date of Service: 01/06/24 Reason For Visit: SI Interim History: met with patient; discussed with team Continued GI symptoms though less so. Pt exceedingly anxious about GI symptoms, asking if he can be cut into to see what's going. Irrigation Tax Assessor Collector thoroughly explained GI illness, treatment approach, which pt eventually understood. Labs ordered; stool samples pending. Mental Status Exam Mental Status Exam Narrative: Pt is alert and oriented; behavior is cooperative, friendly and calm; patient is not in distress; dressed in hospital attire, facial tattoos facial piercings; unkempt;described as anxious and affect congruent, downcast; eye contact appropriate; Speech is normal rate, volume and prosody and not pressured; psychomotor retardation present; thought process is organized and goal directed; Thought content is on tx; otherwise pertinent to relevant topics and without any delusional content, paranoid ideations or grandiosity; No SI; no HI; shadow figure but no AH Patients insight and judgment impaired Diagnostics Vital Signs (24Hr): Vital Signs - 24 hr 01/05/24 20:00 01/06/24 08:00 Temperature 96.4 F L 97.5 F Pulse Rate 106 H 77 Respiratory Rate 17 Blood Pressure 107/53 L 116/56 L Pulse Oximetry 95 95 Oxygen Delivery Method Room Air Room Air BMI result Body Mass Index 37.7 Labs 01/06/24 12:55 01/06/24 12:55 Labs: Laboratory Results - last 48 hr 01/04/24 16:05 C. difficile Tox B Gene NEGATIVE Medications Medications Current Medications Acetaminophen (Acetaminophen 325 Mg Tablet) 650 mg PO Q6H PRN PRN Reason: Headache/Pain Mild Scale (1-3) Al Hydroxide/Mg Hydroxide (Magnesium Hydrox/Alum Hydrox 30 Ml Oral.Susp) 30 ml PO Q6H PRN PRN Reason: Heartburn/Nausea Last Admin: 01/05/24 09:39 Dose: 30 ml Atorvastatin Calcium (Atorvastatin Calcium 20 Mg Tablet) 20 mg PO DAILY [facility] Last Admin: 01/06/24 08:16 Dose: 20 mg Calcium Carbonate (Calcium Carbonate 750 Mg Tab.Chew) 750 mg PO Q4H PRN PRN Reason: continued GERD Famotidine (Famotidine 20 Mg Tablet) 20 mg PO BID [facility] Last Admin: 01/06/24 08:16 Dose: 20 mg Hydroxyzine HCl (Hydroxyzine Hcl 25 Mg Tablet) 25 mg PO Q6H PRN PRN Reason: Anxiety Last Admin: 01/04/24 22:02 Dose: 25 mg Loperamide HCl (Loperamide Hcl 2 Mg Capsule) 4 mg PO Q4H PRN PRN Reason: Diarrhea Last Admin: 01/05/24 09:36 Dose: 4 mg Losartan Potassium (Losartan Potassium 50 Mg Tablet) 50 mg PO DAILY [facility]; Protocol Last Admin: 01/06/24 08:16 Dose: 50 mg Magnesium Hydroxide (Milk Of Magnesia 30 Ml Oral.Susp) 30 ml PO DAILY PRN PRN Reason: Constipation Melatonin (Melatonin 3 Mg Tablet) 9 mg PO BEDTIME PRN PRN Reason: insomnia Last Admin: 01/04/24 22:02 Dose: 9 mg Metformin HCl (Metformin Hcl 500 Mg Tablet) 500 mg PO BID [facility] Last Admin: 01/06/24 08:16 Dose: 500 mg Ondansetron HCl (Ondansetron Odt 4 Mg Tab.Rapdis) 8 mg TRANSLINGU Q6H PRN PRN Reason: Nausea and Vomiting Last Admin: 01/05/24 09:39 Dose: 8 mg Oxcarbazepine (Oxcarbazepine 300 Mg Tablet) 300 mg PO BID [facility] Last Admin: 01/06/24 08:16 Dose: 300 mg Prazosin HCl 5 mg/ Prazosin (HCl 2 mg) 7 mg PO BEDTIME [facility] Last Admin: 01/05/24 21:54 Dose: 7 mg Quetiapine Fumarate (Quetiapine Fumarate 300 Mg Tablet) 300 mg PO BEDTIME [facility] Last Admin: 01/05/24 21:54 Dose: 300 mg Quetiapine Fumarate (Quetiapine Fumarate 50 Mg Tablet) 50 mg PO BEDTIME [facility] Last Admin: 01/05/24 21:54 Dose: 50 mg Sitagliptin Phosphate (Sitagliptin Phosphate 50 Mg Tablet) 50 mg PO DAILY [facility] Last Admin: 01/06/24 08:16 Dose: 50 mg Trazodone HCl (Trazodone Hcl 50 Mg Tablet) 50 mg PO BEDTIME MRX1 PRN PRN Reason: Insomnia Trazodone HCl (Trazodone Hcl 100 Mg Tablet) 100 mg PO BEDTIME [facility] Last Admin: 01/05/24 21:53 Dose: 100 mg Vitamin D (Cholecalciferol (Vitamin D3) 25 Mcg Tablet) 25 mcg PO DAILY [facility] Last Admin: 01/06/24 08:16 Dose: 25 mcg Allergies Allergies Allergy/AdvReac Type Severity Reaction Status Date / Time No Known Allergies Allergy Verified 12/30/23 23:10 Assessment & Plan Assessment & Plan (1) MDD (major depressive disorder), recurrent episode: Status: Acute Code(s): F33.9 - Major depressive disorder, recurrent, unspecified (2) PTSD (post-traumatic stress disorder): Status: Acute Code(s): F43.10 - Post-traumatic stress disorder, unspecified (3) Cocaine use disorder: Status: Acute Code(s): F14.10 - Cocaine abuse, uncomplicated (4) Bipolar disorder: Status: Acute Code(s): F31.9 - Bipolar disorder, unspecified Plan HPI: Patient is a 38-year-old male with history of depression PTSD, mood lability, cocaine use disorder, recently discharged a month ago who presents for depression and SI in the face of broken relationship and relapse with cocaine. Patient transferred from medical floor where he was treated for IVIS, rhabdomyolysis secondary to excessive cocaine use. Patient reports that on medication regimen he was doing overall well however he had gone back to his girlfriend's instead of a program and thinks that the environment he was in was triggering and emotions started to increase; he went to [place] to stay with another female friend and ended up relapsing on cocaine. He continued taking medications throughout this past month however his cocaine abuse increased. Patient's girlfriend moved on to another person which depressed patient and brought up thoughts of suicide. He walked to the bridge though he says he was not really intending to jump. Patient instead self presented. Patient thinks it was impulsive to discharge to his girlfriend's last time acknowledges that he needs a program in order to stay sober. Hospital course: 01/03 Reports doing a little better and slept last night however patient nauseous, vomiting and with diarrhea distracting from further conversation. No other symptoms Zofran/Imodium ordered C diff ordered 01/04 nausea and vomiting subsiding; loose stool subsiding; saw shadow figure out the corner of his eye and asks for Seroquel to be increased to 350 mg C diff -negative 01/05 Continued GI symptoms though less so. Pt exceedingly anxious about GI symptoms, asking if he can be cut into to see what's going. Irrigation Tax Assessor Collector thoroughly explained GI illness, treatment approach, which pt eventually understood. Labs ordered; stool samples pending. Plan: CV Q 15 minute checks Increased to Seroquel 350 mg q.h.s. Trileptal 300 mg b.i.d. Prazosin 7 mg q.h.s. Trazodone 100 mg q.h.s. Atorvastatin 20 mg daily Famotidine 40 mg daily Losartan 50 mg daily Metformin 50 mg b.i.d. Januvia 50 mg daily Reviewed labs and kidney function WNL Patient educated on: diagnosis, medication risk/benefits and medical condition Informed Consent: understands Reason for continued inpatient stay Substantial Risk for: rapid decompensation Time Spent With Patient Time: Total time managing care of this patient today ____ minutes.
[2024-01-06] MEDS: Ondansetron ODT 4 MG TAB.RAPDIS 8 MG TRANSLINGU (09:58)
[2024-01-06 13:05] LABS: MANUAL DIFF FLAG NO
[2024-01-06 13:08] LABS: Basophils Percent Auto 0.1 % (0-2); Eosinophils Absolute Auto 0.1 X10*3/uL (0.0-0.4); Eosinophils Percent Auto 1.2 % (0-4); Hematocrit 39.7 % (42.0-52.0); Hemoglobin 13.3 g/dl (14.0-18.0); Imm Gran Abs Auto 0.02 X10*3/uL (0.00-0.03); Imm Gran Pct Auto 0.3 % (0.0-0.4); Lymphocytes Absolute Auto 1.5 X10*3/uL (1.2-4.9); Lymphocytes Percent Auto 20.1 % (20-40); Mean Corpuscular HGB Conc 33.5 g/dl (31.0-36.0); Mean Corpuscular Hemoglobin 30.3 pg (27.0-33.0); Mean Corpuscular Volume 90.4 fL (80.0-98.0); Monocytes Absolute Auto 0.8 X10*3/uL (0.1-1.2); Monocytes Percent Auto 10.4 % (2-11); Neutrophils Absolute Auto 4.9 x10*3/uL (2.0-8.3); Neutrophils Percent Auto 67.9 % (45-73); Platelet Count 257 X10*3/uL (160-400); Red Blood Count 4.39 X10*6/uL (4.60-5.80); Red Cell Distribution Width 14.3 % (11.0-16.0); White Blood Count 7.3 X10*3/uL (4.8-10.8)
[2024-01-06 13:23] LABS: Alanine Aminotransferase 29 U/L (0-40); Albumin Level 3.6 g/dL (3.5-5.0); Alkaline Phosphatase 95 U/L (39-117); Anion Gap 12 (12-20); Aspartate Amino Transferase 15 U/L (5-37); Bilirubin Total 0.3 mg/dL (0.0-1.0); Blood Urea Nitrogen 14 mg/dL (9-16); Calcium 8.7 mg/dL (8.4-10.2); Carbon Dioxide 24 mmol/L (22-29); Chloride 107 mmol/L (96-108); Creatinine Clr Calc Pharmacy 136.2; Estimated Glomerular Filt Rate > 60; Glucose Random 84 mg/dL (60-115); Lipase 43 U/L (8-78); Potassium 4.3 mmol/L (3.3-5.1); Sodium 139 mmol/L (135-145); Total Protein 6.8 g/dL (6.5-8.0)
--- NOTE | 2024-01-06 14:21 | PM.EVENT ---
Event Note Date of Service: 01/06/24 Event Note: Consult placed hospitalist service for diarrhea. The patient was no longer having diarrhea, stools formed. There are no fevers, vitals are stable. C diff PCR was negative, GI panel ordered and pending. No ongoing nausea or vomiting. Labs reviewed. No leukocytosis. Has a stable normocytic anemia. Renal function baseline, electrolyte levels normal. Can use Imodium as needed. No further intervention needed. Thank you for allowing me to participate in this consult. Signing off at this time. Please do not hesitate to call for further questions or for any acutemedical issues Time Spent With Patient Time: Total time managing care of this patient today ____ minutes.
--- NOTE | 2024-01-06 15:47 | PC.NURSE ---
Pt serum labs sent and reviewed by hospitalist and GI stool panel results pending. Pt reports last diarrea was this morning and since having loperamide he has had a formed BM. He states his stomach feels like it's gurgling and there is alot of gas in there. I burp and it smells like sulfur. It has a medicinal smell. I think I was poisoned. I think I need my stomach to be cut open to see whats going on in there cause I'm sick He has been out of bed and social with peers, reports cramps subsided but now feels intermittent nausea. He also feels that Dr. Ramires is avoiding me. Reminded him that since he has not been eating much over past 3 days and perhaps that might explain why he smells his burps being medicinal Will continue to update with plan and medications/labs if anymore are ordered.
[2024-01-06 20:00] VITALS: BP 124/56; PULSE 87; RESP 16; TEMP 36.7; O2SAT 94
[2024-01-06] MEDS: QUEtiapine Fumarate 50 MG TABLET PO (21:26)
[2024-01-06] MEDS: Melatonin 3 MG TABLET 9 MG PO (21:26)
[2024-01-06] MEDS: traZODone HCL 100 MG TABLET PO (21:27)
[2024-01-06] MEDS: QUEtiapine Fumarate 300 MG TABLET PO (21:27)
[2024-01-07 08:00] VITALS: BP 137/63; PULSE 76; RESP 18; TEMP 36.4; O2SAT 96
--- NOTE | 2024-01-07 08:40 | HO.PSYCHPN ---
Subjective Subjective Date of Service: 01/07/24 Reason For Visit: SI Interim History: met with patient; discussed with team Patient reports most of loose stool resolved; no vomiting though sill nauseas with GERD. Pt anxious but feels he's starting to notice mood/anxiety improvement now that GI illness resolving. Mental Status Exam Mental Status Exam Narrative: Pt is alert and oriented; behavior is cooperative, friendly and calm; patient is not in distress; dressed in hospital attire, facial tattoos facial piercings; unkempt;described as anxious but a little better and affect congruent, brighter, more calm; eye contact appropriate; Speech is normal rate, volume and prosody and not pressured; no psychomotor retardation present; thought process is organized and goal directed; Thought content is on tx; otherwise pertinent to relevant topics and without any delusional content, paranoid ideations or grandiosity; No SI; no HI; No AVH Patients insight and judgment impaired but improving Diagnostics Vital Signs (24Hr): Vital Signs - 24 hr 01/06/24 20:00 Temperature 98.1 F Pulse Rate 87 Respiratory Rate 16 Blood Pressure 124/56 L Pulse Oximetry 94 Oxygen Delivery Method Room Air BMI result Body Mass Index 37.7 Labs 01/06/24 12:55 01/06/24 12:55 Labs: Laboratory Results - last 48 hr 01/06/24 12:55 WBC 7.3 RBC 4.39 L Hgb 13.3 L Hct 39.7 L MCV 90.4 MCH 30.3 MCHC 33.5 RDW 14.3 Plt Count 257 MPV 10.0 Immature Gran % (Auto) 0.3 Neut % (Auto) 67.9 Lymph % (Auto) 20.1 Cataño % (Auto) 10.4 Eos % (Auto) 1.2 Baso % (Auto) 0.1 Lymph # (Auto) 1.5 [place]ata[place] # (Auto) 0.8 Eos # (Auto) 0.1 Baso # (Auto) 0.0 Abs Immat Gran (auto) 0.02 Absolute Neuts (auto) 4.9 Absolute Nucleated RBC 0.000 Nucleated RBC % (auto) 0.0 Sodium 139 Potassium 4.3 Chloride 107 Carbon Dioxide 24 Anion Gap 12 BUN 14 Creatinine 0.97 Estim Creat Clear Calc 136.2 Estimated GFR > 60 Random Glucose 84 Calcium 8.7 D Magnesium 2.0 Total Bilirubin 0.3 AST 15 ALT 29 Alkaline Phosphatase 95 Total Protein 6.8 Albumin 3.6 Lipase 43 Medications Medications Current Medications Acetaminophen (Acetaminophen 325 Mg Tablet) 650 mg PO Q6H PRN PRN Reason: Headache/Pain Mild Scale (1-3) Al Hydroxide/Mg Hydroxide (Magnesium Hydrox/Alum Hydrox 30 Ml Oral.Susp) 30 ml PO Q6H PRN PRN Reason: Heartburn/Nausea Last Admin: 01/05/24 09:39 Dose: 30 ml Atorvastatin Calcium (Atorvastatin Calcium 20 Mg Tablet) 20 mg PO DAILY [facility] Last Admin: 01/06/24 08:16 Dose: 20 mg Calcium Carbonate (Calcium Carbonate 750 Mg Tab.Chew) 750 mg PO Q4H PRN PRN Reason: continued GERD Famotidine (Famotidine 20 Mg Tablet) 20 mg PO BID [facility] Last Admin: 01/06/24 21:27 Dose: 20 mg Hydroxyzine HCl (Hydroxyzine Hcl 25 Mg Tablet) 25 mg PO Q6H PRN PRN Reason: Anxiety Last Admin: 01/04/24 22:02 Dose: 25 mg Loperamide HCl (Loperamide Hcl 2 Mg Capsule) 4 mg PO Q4H PRN PRN Reason: Diarrhea Last Admin: 01/06/24 09:50 Dose: 4 mg Losartan Potassium (Losartan Potassium 50 Mg Tablet) 50 mg PO DAILY [facility]; Protocol Last Admin: 01/06/24 08:16 Dose: 50 mg Magnesium Hydroxide (Milk Of Magnesia 30 Ml Oral.Susp) 30 ml PO DAILY PRN PRN Reason: Constipation Melatonin (Melatonin 3 Mg Tablet) 9 mg PO BEDTIME PRN PRN Reason: insomnia Last Admin: 01/06/24 21:26 Dose: 9 mg Metformin HCl (Metformin Hcl 500 Mg Tablet) 500 mg PO BID [facility] Last Admin: 01/06/24 21:27 Dose: 500 mg Ondansetron HCl (Ondansetron Odt 4 Mg Tab.Rapdis) 8 mg TRANSLINGU Q6H PRN PRN Reason: Nausea and Vomiting Last Admin: 01/06/24 09:58 Dose: 8 mg Oxcarbazepine (Oxcarbazepine 300 Mg Tablet) 300 mg PO BID [facility] Last Admin: 01/06/24 21:27 Dose: 300 mg Prazosin HCl 5 mg/ Prazosin (HCl 2 mg) 7 mg PO BEDTIME [facility] Last Admin: 01/06/24 21:27 Dose: 7 mg Quetiapine Fumarate (Quetiapine Fumarate 300 Mg Tablet) 300 mg PO BEDTIME [facility] Last Admin: 01/06/24 21:27 Dose: 300 mg Quetiapine Fumarate (Quetiapine Fumarate 50 Mg Tablet) 50 mg PO BEDTIME [facility] Last Admin: 01/06/24 21:26 Dose: 50 mg Sitagliptin Phosphate (Sitagliptin Phosphate 50 Mg Tablet) 50 mg PO DAILY [facility] Last Admin: 01/06/24 08:16 Dose: 50 mg Trazodone HCl (Trazodone Hcl 50 Mg Tablet) 50 mg PO BEDTIME MRX1 PRN PRN Reason: Insomnia Trazodone HCl (Trazodone Hcl 100 Mg Tablet) 100 mg PO BEDTIME [facility] Last Admin: 01/06/24 21:27 Dose: 100 mg Vitamin D (Cholecalciferol (Vitamin D3) 25 Mcg Tablet) 25 mcg PO DAILY [facility] Last Admin: 01/06/24 08:16 Dose: 25 mcg Allergies Allergies Allergy/AdvReac Type Severity Reaction Status Date / Time No Known Allergies Allergy Verified 12/30/23 23:10 Assessment & Plan Assessment & Plan (1) MDD (major depressive disorder), recurrent episode: Status: Acute Code(s): F33.9 - Major depressive disorder, recurrent, unspecified (2) PTSD (post-traumatic stress disorder): Status: Acute Code(s): F43.10 - Post-traumatic stress disorder, unspecified (3) Cocaine use disorder: Status: Acute Code(s): F14.10 - Cocaine abuse, uncomplicated (4) Bipolar disorder: Status: Acute Code(s): F31.9 - Bipolar disorder, unspecified Plan HPI: Patient is a 38-year-old male with history of depression PTSD, mood lability, cocaine use disorder, recently discharged a month ago who presents for depression and SI in the face of broken relationship and relapse with cocaine. Patient transferred from medical floor where he was treated for IVIS, rhabdomyolysis secondary to excessive cocaine use. Patient reports that on medication regimen he was doing overall well however he had gone back to his girlfriend's instead of a program and thinks that the environment he was in was triggering and emotions started to increase; he went to [place] to stay with another female friend and ended up relapsing on cocaine. He continued taking medications throughout this past month however his cocaine abuse increased. Patient's girlfriend moved on to another person which depressed patient and brought up thoughts of suicide. He walked to the bridge though he says he was not really intending to jump. Patient instead self presented. Patient thinks it was impulsive to discharge to his girlfriend's last time acknowledges that he needs a program in order to stay sober. Hospital course: 01/03 Reports doing a little better and slept last night however patient nauseous, vomiting and with diarrhea distracting from further conversation. No other symptoms Zofran/Imodium ordered C diff ordered 01/04 nausea and vomiting subsiding; loose stool subsiding; saw shadow figure out the corner of his eye and asks for Seroquel to be increased to 350 mg C diff -negative 01/05 Continued GI symptoms though less so. Pt exceedingly anxious about GI symptoms, asking if he can be cut into to see what's going. Culture Manager thoroughly explained GI illness, treatment approach, which pt eventually understood. Labs ordered; stool samples pending. 01/06 improving; GI labs wnl Plan: CV Q 15 minute checks continue Seroquel 350 mg q.h.s. Trileptal 300 mg b.i.d. Prazosin 7 mg q.h.s. Trazodone 100 mg q.h.s. Atorvastatin 20 mg daily Famotidine 40 mg daily Losartan 50 mg daily Metformin 50 mg b.i.d. Januvia 50 mg daily Reviewed labs and kidney function WNL Patient educated on: diagnosis, medication risk/benefits, therapeutic strategies and medical condition Informed Consent: understands Reason for continued inpatient stay Substantial Risk for: rapid decompensation Time Spent With Patient Time: Total time managing care of this patient today ____ minutes.
[2024-01-07] MEDS: metFORMIN HCl 500 MG TABLET PO ×2 (08:44→20:51)
[2024-01-07] MEDS: SITagliptin Phosphate 50 MG TABLET PO (08:45)
[2024-01-07 09:49] LABS: Adenovirus F 40/41 Not Detected (Not Detect.); Astrovirus Not Detected (Not Detect.); Campylobacter Not Detected (Not Detect.); Cryptosporidium Not Detected (Not Detect.); Cyclospora cayetanensis Not Detected (Not Detect.); E. coli EAEC Not Detected (Not Detect.); E. coli EPEC Not Detected (Not Detect.); E. coli ETEC Not Detected (Not Detect.); E. coli STEC Not Detected (Not Detect.); Entamoeba histolytica Not Detected (Not Detect.); Giardia lamblia Not Detected (Not Detect.); Norovirus GI/GII Not Detected (Not Detect.); Plesiomonas shigelloides Not Detected (Not Detect.); Rotavirus A Not Detected (Not Detect.); Salmonella Not Detected (Not Detect.); Sapovirus Not Detected (Not Detect.); Shigella sp./EIEC Not Detected (Not Detect.); Vibrio Not Detected (Not Detect.); Vibrio Cholerae Not Detected (Not Detect.); Yersinia enterocolitica Not Detected (Not Detect.)
[2024-01-07 20:00] VITALS: BP 129/75; PULSE 84; RESP 16; TEMP 36.4; O2SAT 98
[2024-01-07] MEDS: Famotidine 20 MG TABLET PO (20:50)
[2024-01-07] MEDS: OXcarbazepine 300 MG TABLET PO (20:50)
[2024-01-07] MEDS: QUEtiapine Fumarate 50 MG TABLET PO (20:50)
[2024-01-07] MEDS: traZODone HCL 100 MG TABLET PO (20:51)
[2024-01-07] MEDS: QUEtiapine Fumarate 300 MG TABLET PO (20:51)
[2024-01-08 07:00] VITALS: BMI 36.6
[2024-01-08 08:00] VITALS: BP 142/65; PULSE 82; TEMP 36.6; O2SAT 96
[2024-01-08] MEDS: Cholecalciferol (Vitamin D3) 25 MCG TABLET PO (08:59)
[2024-01-08] MEDS: SITagliptin Phosphate 50 MG TABLET PO (09:00)
[2024-01-08] MEDS: Famotidine 20 MG TABLET PO ×2 (09:00→22:42)
[2024-01-08] MEDS: metFORMIN HCl 500 MG TABLET PO ×2 (09:00→22:43)
--- NOTE | 2024-01-08 09:21 | P.PNPSI_ITS ---
Subjective Subjective Date of Service: 01/08/24 Reason For Visit: SI Interim History: met with patient; discussed with team pt continues to improve and reports overall feeling much better, mood is good and anxiety under control; wants program and focused on getting into a program. Did not take some meds yesterday worried they maybe cause of recent, now mostly resolved diarrheal illness. Cycle Counter provided education how this was very unlikely and pt agrees to continue with medications, which he finds helpul and on which wants to remain (statin was one of his worries). Patient was triggered today in [facility], misinterpreting staff's interaction and labeling staff person racist; sullen for part of the day but willing later on to engage with social media project manager and then race and sports book writer in a good discussion about his history, dealing with severe racism in [place] and how he remains easily triggered on this topic. Pt demonstrated good insight sharing that he knows he can not read other peoples minds and misinterprets things, something he is committed to working on. Mental Status Exam Mental Status Exam Narrative: Pt is alert and oriented; behavior is cooperative, friendly and calm; patient is not in distress; dressed in hospital attire, facial tattoos facial piercings; adequate hygiene and grooming; described as better and affect congruent, brighter, more calm; eye contact appropriate; Speech is normal rate, volume and prosody and not pressured; no psychomotor retardation present; thought process is organized and goal directed; Thought content is on tx; otherwise pertinent to relevant topics and without any delusional content, paranoid ideations or grandiosity; No SI; no HI; No AVH Patients insight and judgment fair. Diagnostics Vital Signs (24Hr): Vital Signs - 24 hr 01/07/24 20:00 01/08/24 08:00 Temperature 97.5 F 98 F Pulse Rate 84 82 Respiratory Rate 16 Blood Pressure 129/75 142/65 H Pulse Oximetry 98 96 Oxygen Delivery Method Room Air Room Air BMI result Body Mass Index 37.7 Labs 01/06/24 12:55 01/06/24 12:55 Labs: Laboratory Results - last 48 hr 01/06/24 01/06/24 12:55 Unknown WBC 7.3 RBC 4.39 L Hgb 13.3 L Hct 39.7 L MCV 90.4 MCH 30.3 MCHC 33.5 RDW 14.3 Plt Count 257 MPV 10.0 Immature Gran % (Auto) 0.3 Neut % (Auto) 67.9 Lymph % (Auto) 20.1 [place] % (Auto) 10.4 Eos % (Auto) 1.2 Baso % (Auto) 0.1 Lymph # (Auto) 1.5 [place] # (Auto) 0.8 Eos # (Auto) 0.1 Baso # (Auto) 0.0 Abs Immat Gran (auto) 0.02 Absolute Neuts (auto) 4.9 Absolute Nucleated RBC 0.000 Nucleated RBC % (auto) 0.0 Sodium 139 Potassium 4.3 Chloride 107 Carbon Dioxide 24 Anion Gap 12 BUN 14 Creatinine 0.97 Estim Creat Clear Calc 136.2 Estimated GFR > 60 Random Glucose 84 Calcium 8.7 D Magnesium 2.0 Total Bilirubin 0.3 AST 15 ALT 29 Alkaline Phosphatase 95 Total Protein 6.8 Albumin 3.6 Lipase 43 Stl C. cayetanensis PCR Not Detected Stool Rotavirus A PCR Not Detected Stl Adenov F 40/41 PCR Not Detected Stool Astrovirus (PCR) Not Detected Stool Campylobacter PCR Not Detected Stool Cryptosporidium PCR Not Detected Stl Sh Tox Pr E STEC PCR Not Detected Stool E coli O157 PCR Not applicable Stl Enterotoxigenic E PCR Not Detected Stool EPEC (PCR) Not Detected Stool EAEC (PCR) Not Detected Stl E. histolytica PCR Not Detected Stool Giardia Lamblia PCR Not Detected Stl P. shigelloides PCR Not Detected Stool Salmonella PCR Not Detected Stool Sapovirus (PCR) Not Detected Stl Shigella/EIEC PCR Not Detected St Y.enterocolitica PCR Not Detected Stool Vibrio (PCR) Not Detected Stl Vibrio cholerae PCR Not Detected Stl Norovirus GI/GII PCR Not Detected Medications Medications Current Medications Acetaminophen (Acetaminophen 325 Mg Tablet) 650 mg PO Q6H PRN PRN Reason: Headache/Pain Mild Scale (1-3) Al Hydroxide/Mg Hydroxide (Magnesium Hydrox/Alum Hydrox 30 Ml Oral.Susp) 30 ml PO Q6H PRN PRN Reason: Heartburn/Nausea Last Admin: 01/05/24 09:39 Dose: 30 ml Atorvastatin Calcium (Atorvastatin Calcium 20 Mg Tablet) 20 mg PO DAILY [facility] Last Admin: 01/08/24 09:04 Dose: Not Given Calcium Carbonate (Calcium Carbonate 750 Mg Tab.Chew) 750 mg PO Q4H PRN PRN Reason: continued GERD Famotidine (Famotidine 20 Mg Tablet) 20 mg PO BID [facility] Last Admin: 01/08/24 09:00 Dose: 20 mg Hydroxyzine HCl (Hydroxyzine Hcl 25 Mg Tablet) 25 mg PO Q6H PRN PRN Reason: Anxiety Last Admin: 01/04/24 22:02 Dose: 25 mg Loperamide HCl (Loperamide Hcl 2 Mg Capsule) 4 mg PO Q4H PRN PRN Reason: Diarrhea Last Admin: 01/06/24 09:50 Dose: 4 mg Losartan Potassium (Losartan Potassium 50 Mg Tablet) 50 mg PO DAILY [facility]; Protocol Last Admin: 01/08/24 09:04 Dose: Not Given Magnesium Hydroxide (Milk Of Magnesia 30 Ml Oral.Susp) 30 ml PO DAILY PRN PRN Reason: Constipation Melatonin (Melatonin 3 Mg Tablet) 9 mg PO BEDTIME PRN PRN Reason: insomnia Last Admin: 01/06/24 21:26 Dose: 9 mg Metformin HCl (Metformin Hcl 500 Mg Tablet) 500 mg PO BID [facility] Last Admin: 01/08/24 09:00 Dose: 500 mg Ondansetron HCl (Ondansetron Odt 4 Mg Tab.Rapdis) 8 mg TRANSLINGU Q6H PRN PRN Reason: Nausea and Vomiting Last Admin: 01/06/24 09:58 Dose: 8 mg Oxcarbazepine (Oxcarbazepine 300 Mg Tablet) 300 mg PO BID [facility] Last Admin: 01/08/24 09:04 Dose: Not Given Prazosin HCl 5 mg/ Prazosin (HCl 2 mg) 7 mg PO BEDTIME [facility] Last Admin: 01/07/24 20:51 Dose: 7 mg Quetiapine Fumarate (Quetiapine Fumarate 300 Mg Tablet) 300 mg PO BEDTIME [facility] Last Admin: 01/07/24 20:51 Dose: 300 mg Quetiapine Fumarate (Quetiapine Fumarate 50 Mg Tablet) 50 mg PO BEDTIME [facility] Last Admin: 01/07/24 20:50 Dose: 50 mg Simethicone (Simethicone 80 Mg Tab.Chew) 80 mg PO QIDWMHS PRN PRN Reason: gas and bloating Simethicone (Simethicone 80 Mg Tab.Chew) 80 mg PO QIDWMHS PRN PRN Reason: flatulance Sitagliptin Phosphate (Sitagliptin Phosphate 50 Mg Tablet) 50 mg PO DAILY [facility] Last Admin: 01/08/24 09:00 Dose: 50 mg Trazodone HCl (Trazodone Hcl 50 Mg Tablet) 50 mg PO BEDTIME MRX1 PRN PRN Reason: Insomnia Trazodone HCl (Trazodone Hcl 100 Mg Tablet) 100 mg PO BEDTIME [facility] Last Admin: 01/07/24 20:51 Dose: 100 mg Vitamin D (Cholecalciferol (Vitamin D3) 25 Mcg Tablet) 25 mcg PO DAILY [facility] Last Admin: 01/08/24 08:59 Dose: 25 mcg Allergies Allergies Allergy/AdvReac Type Severity Reaction Status Date / Time No Known Allergies Allergy Verified 12/30/23 23:10 Assessment & Plan Assessment & Plan (1) MDD (major depressive disorder), recurrent episode: Status: Acute Code(s): F33.9 - Major depressive disorder, recurrent, unspecified (2) PTSD (post-traumatic stress disorder): Status: Acute Code(s): F43.10 - Post-traumatic stress disorder, unspecified (3) Cocaine use disorder: Status: Acute Code(s): F14.10 - Cocaine abuse, uncomplicated (4) Bipolar disorder: Status: Acute Code(s): F31.9 - Bipolar disorder, unspecified Plan HPI: Patient is a 38-year-old male with history of depression PTSD, mood lability, cocaine use disorder, recently discharged a month ago who presents for depression and SI in the face of broken relationship and relapse with cocaine. Patient transferred from medical floor where he was treated for IVIS, rhabdomyolysis secondary to excessive cocaine use. Patient reports that on medication regimen he was doing overall well however he had gone back to his girlfriend's instead of a program and thinks that the environment he was in was triggering and emotions started to increase; he went to [place] to stay with another female friend and ended up relapsing on cocaine. He continued taking medications throughout this past month however his cocaine abuse increased. Patient's girlfriend moved on to another person which depressed patient and brought up thoughts of suicide. He walked to the bridge though he says he was not really intending to jump. Patient instead self presented. Patient thinks it was impulsive to discharge to his girlfriend's last time acknowledges that he needs a program in order to stay sober. Hospital course: 01/03 Reports doing a little better and slept last night however patient nauseous, vomiting and with diarrhea distracting from further conversation. No other symptoms Zofran/Imodium ordered C diff ordered 01/04 nausea and vomiting subsiding; loose stool subsiding; saw shadow figure out the corner of his eye and asks for Seroquel to be increased to 350 mg C diff -negative 01/05 Continued GI symptoms though less so. Pt exceedingly anxious about GI symptoms, asking if he can be cut into to see what's going. Cycle Counter thoroughly explained GI illness, treatment approach, which pt eventually understood. Labs ordered; stool samples pending. 01/06 improving; GI labs wnl 01/07 pt continues to improve and reports overall feeling much better, mood is good and anxiety under control; wants program and focused on getting into a program. Did not take some meds yesterday worried they maybe cause of recent, now mostly resolved diarrheal illness. Cycle Counter provided education how this was very unlikely and pt agrees to continue with medications, which he finds helpul and on which wants to remain (statin was one of his worries). -[facility], [facility]preting staff's interaction and labeling staff person racist; martinez for part of the day but willing later on to engage with social media project manager and then race and sports book writer in a good discussion about his history, dealing with severe racism in [place] and how he remains easily triggered on this topic. Pt demonstrated good insight sharing that he knows he can not read other peoples minds and misinterprets things, something he is committed to working on. Discussed substance abuse and how he falls back into the pattern of cocaine abuse. -patient is at baseline. In talking about dispo, patient says that he has a sober friend that is willing to let him live with him starting next Friday. He says if he gets into a program he will go to that instead but otherwise will discharge there. Plan: CV Q 15 minute checks continue Seroquel 350 mg q.h.s. Trileptal 300 mg b.i.d. Prazosin 7 mg q.h.s. Trazodone 100 mg q.h.s. Atorvastatin 20 mg daily Famotidine 40 mg daily Losartan 50 mg daily Metformin 50 mg b.i.d. Januvia 50 mg daily Reviewed labs and kidney function WNL Patient educated on: diagnosis, medication risk/benefits, substance abuse and therapeutic strategies Informed Consent: does not understand Reason for continued inpatient stay Substantial Risk for: stable for discharge Time Spent With Patient Time: Total time managing care of this patient today ____ minutes.
[2024-01-08] MEDS: Simethicone 80 MG TAB.CHEW PO ×2 (09:33→16:49)
[2024-01-08 20:00] VITALS: BP 121/77; PULSE 103; TEMP 36.6
[2024-01-08 22:40] VITALS: BP 134/88; PULSE 84; TEMP 36.1
[2024-01-08] MEDS: QUEtiapine Fumarate 50 MG TABLET PO (22:42)
[2024-01-08] MEDS: QUEtiapine Fumarate 300 MG TABLET PO (22:42)
[2024-01-08] MEDS: traZODone HCL 100 MG TABLET PO (22:42)
[2024-01-09 07:30] VITALS: BP 133/75; PULSE 75; RESP 16; TEMP 36.4; O2SAT 99
[2024-01-09] MEDS: Cholecalciferol (Vitamin D3) 25 MCG TABLET PO (08:35)
[2024-01-09] MEDS: metFORMIN HCl 500 MG TABLET PO ×2 (08:35→22:04)
[2024-01-09] MEDS: SITagliptin Phosphate 50 MG TABLET PO (08:35)
[2024-01-09] MEDS: Famotidine 20 MG TABLET PO ×2 (08:35→22:04)
[2024-01-09] MEDS: Simethicone 80 MG TAB.CHEW PO (08:39)
--- NOTE | 2024-01-09 12:23 | P.PNPSI_ITS ---
Subjective Subjective Date of Service: 01/09/24 Reason For Visit: SI Interim History: Met with patient; discussed with team Patient reports that a female friend of his, with whom he has a romantic interest has offered for him to come live with her. Discussed getting into a program patient said that at this point even if he got into a program he would still rather go live with her, feeling that this is a positive relationship that might be able to endure, that she is sober, and this is what he wants. Product Inspection Coordinator discussed risks of relapse and need for consistent focus on dealing with his addiction issues, that avoiding this puts him at high risk for relapse. Patient agrees with insurance underwriter and says that while it is likely true, that he should go to a program he is willing to take that risk for this relationship. He reports being in a good mood, optimistic, future oriented, no SI/HI or AVH and requesting discharge. Mental Status Exam Mental Status Exam Narrative: Pt is alert and oriented; behavior is cooperative, friendly and calm; patient is not in distress; dressed in hospital attire, facial tattoos facial piercings; adequate hygiene and grooming; described as good and affect congruent, brighter, more calm; eye contact appropriate; Speech is normal rate, volume and prosody and not pressured; no psychomotor retardation present; thought process is organized and goal directed; Thought content is on tx; otherwise pertinent to relevant topics and without any delusional content, paranoid ideations or grandiosity; No SI; no HI; No AVH Patients insight and judgment fair. Diagnostics Vital Signs (24Hr): Vital Signs - 24 hr 01/08/24 20:00 01/08/24 22:40 01/09/24 07:30 Temperature 97.8 F 97.0 F 97.5 F Pulse Rate 103 H 84 75 Respiratory Rate 16 Blood Pressure 121/77 134/88 133/75 Pulse Oximetry 99 Oxygen Delivery Method Room Air BMI result Body Mass Index 36.6 Labs 01/06/24 12:55 01/06/24 12:55 Medications Medications Current Medications Acetaminophen (Acetaminophen 325 Mg Tablet) 650 mg PO Q6H PRN PRN Reason: Headache/Pain Mild Scale (1-3) Al Hydroxide/Mg Hydroxide (Magnesium Hydrox/Alum Hydrox 30 Ml Oral.Susp) 30 ml PO Q6H PRN PRN Reason: Heartburn/Nausea Last Admin: 01/05/24 09:39 Dose: 30 ml Atorvastatin Calcium (Atorvastatin Calcium 20 Mg Tablet) 20 mg PO DAILY [facility] Last Admin: 01/09/24 08:41 Dose: Not Given Calcium Carbonate (Calcium Carbonate 750 Mg Tab.Chew) 750 mg PO Q4H PRN PRN Reason: continued GERD Famotidine (Famotidine 20 Mg Tablet) 20 mg PO BID [facility] Last Admin: 01/09/24 08:35 Dose: 20 mg Hydroxyzine HCl (Hydroxyzine Hcl 25 Mg Tablet) 25 mg PO Q6H PRN PRN Reason: Anxiety Last Admin: 01/04/24 22:02 Dose: 25 mg Loperamide HCl (Loperamide Hcl 2 Mg Capsule) 4 mg PO Q4H PRN PRN Reason: Diarrhea Last Admin: 01/06/24 09:50 Dose: 4 mg Losartan Potassium (Losartan Potassium 50 Mg Tablet) 50 mg PO DAILY [facility]; Protocol Last Admin: 01/09/24 08:41 Dose: Not Given Magnesium Hydroxide (Milk Of Magnesia 30 Ml Oral.Susp) 30 ml PO DAILY PRN PRN Reason: Constipation Melatonin (Melatonin 3 Mg Tablet) 9 mg PO BEDTIME PRN PRN Reason: insomnia Last Admin: 01/06/24 21:26 Dose: 9 mg Metformin HCl (Metformin Hcl 500 Mg Tablet) 500 mg PO BID [facility] Last Admin: 01/09/24 08:35 Dose: 500 mg Ondansetron HCl (Ondansetron Odt 4 Mg Tab.Rapdis) 8 mg TRANSLINGU Q6H PRN PRN Reason: Nausea and Vomiting Last Admin: 01/06/24 09:58 Dose: 8 mg Oxcarbazepine (Oxcarbazepine 300 Mg Tablet) 300 mg PO BID [facility] Last Admin: 01/09/24 08:41 Dose: Not Given Prazosin HCl 5 mg/ Prazosin (HCl 2 mg) 7 mg PO BEDTIME [facility] Last Admin: 01/08/24 22:46 Dose: Not Given Quetiapine Fumarate (Quetiapine Fumarate 300 Mg Tablet) 300 mg PO BEDTIME [facility] Last Admin: 01/08/24 22:42 Dose: 300 mg Quetiapine Fumarate (Quetiapine Fumarate 50 Mg Tablet) 50 mg PO BEDTIME [facility] Last Admin: 01/08/24 22:42 Dose: 50 mg Simethicone (Simethicone 80 Mg Tab.Chew) 80 mg PO QIDWMHS PRN PRN Reason: flatulance Last Admin: 01/09/24 08:39 Dose: 80 mg Sitagliptin Phosphate (Sitagliptin Phosphate 50 Mg Tablet) 50 mg PO DAILY [facility] Last Admin: 01/09/24 08:35 Dose: 50 mg Trazodone HCl (Trazodone Hcl 50 Mg Tablet) 50 mg PO BEDTIME MRX1 PRN PRN Reason: Insomnia Trazodone HCl (Trazodone Hcl 100 Mg Tablet) 100 mg PO BEDTIME [facility] Last Admin: 01/08/24 22:42 Dose: 100 mg Vitamin D (Cholecalciferol (Vitamin D3) 25 Mcg Tablet) 25 mcg PO DAILY [facility] Last Admin: 01/09/24 08:35 Dose: 25 mcg Allergies Allergies Allergy/AdvReac Type Severity Reaction Status Date / Time No Known Allergies Allergy Verified 12/30/23 23:10 Assessment & Plan Assessment & Plan (1) MDD (major depressive disorder), recurrent episode: Status: Acute Code(s): F33.9 - Major depressive disorder, recurrent, unspecified (2) PTSD (post-traumatic stress disorder): Status: Acute Code(s): F43.10 - Post-traumatic stress disorder, unspecified (3) Cocaine use disorder: Status: Acute Code(s): F14.10 - Cocaine abuse, uncomplicated (4) Bipolar disorder: Status: Acute Code(s): F31.9 - Bipolar disorder, unspecified Plan HPI: Patient is a 38-year-old male with history of depression PTSD, mood lability, cocaine use disorder, recently discharged a month ago who presents for depression and SI in the face of broken relationship and relapse with cocaine. Patient transferred from medical floor where he was treated for IVIS, rhabdomyolysis secondary to excessive cocaine use. Patient reports that on medication regimen he was doing overall well however he had gone back to his girlfriend's instead of a program and thinks that the environment he was in was triggering and emotions started to increase; he went to [place] to stay with another female friend and ended up relapsing on cocaine. He continued taking medications throughout this past month however his cocaine abuse increased. Patient's girlfriend moved on to another person which depressed patient and brought up thoughts of suicide. He walked to the bridge though he says he was not really intending to jump. Patient instead self presented. Patient thinks it was impulsive to discharge to his girlfriend's last time acknowledges that he needs a program in order to stay sober. Hospital course: 01/03 Reports doing a little better and slept last night however patient nauseous, vomiting and with diarrhea distracting from further conversation. No other symptoms Zofran/Imodium ordered C diff ordered 01/04 nausea and vomiting subsiding; loose stool subsiding; saw shadow figure out the corner of his eye and asks for Seroquel to be increased to 350 mg C diff -negative 01/05 Continued GI symptoms though less so. Pt exceedingly anxious about GI symptoms, asking if he can be cut into to see what's going. Product Inspection Coordinator thoroughly explained GI illness, treatment approach, which pt eventually understood. Labs ordered; stool samples pending. 01/06 improving; GI labs wnl 01/07 pt continues to improve and reports overall feeling much better, mood is good and anxiety under control; wants program and focused on getting into a program. Did not take some meds yesterday worried they maybe cause of recent, now mostly resolved diarrheal illness. Product Inspection Coordinator provided education how this was very unlikely and pt agrees to continue with medications, which he finds helpul and on which wants to remain (statin was one of his worries). -Patient was triggered today in [facility], misinterpreting staff's interaction and labeling staff person racist; sullen for part of the day but willing later on to engage with foster care social worker and then insurance underwriter in a good discussion about his history, dealing with severe racism in [place] and how he remains easily triggered on this topic. Pt demonstrated good insight sharing that he knows he can not read other peoples minds and misinterprets things, something he is committed to working on. Discussed substance abuse and how he falls back into the pattern of cocaine abuse. -patient is at baseline. In talking about dispo, patient says that he has a sober friend that is willing to let him live with him starting next Friday. He says if he gets into a program he will go to that instead but otherwise will discharge there. 01/08 Patient reports that a female friend of his, with whom he has a romantic interest has offered for him to come live with her. Discussed getting into a program patient said that at this point even if he got into a program he would still rather go live with her, feeling that this is a positive relationship that might be able to endure, that she is sober, and this is what he wants. Product Inspection Coordinator discussed risks of relapse and need for consistent focus on dealing with his addiction issues, that avoiding this puts him at high risk for relapse. Patient agrees with insurance underwriter and says that while it is likely true, that he should go to a program he is willing to take that risk for this relationship. He reports being in a good mood, optimistic, future oriented, no SI/HI or AVH and requesting discharge. Product Inspection Coordinator underscored that this is definitely a change of direction. Patient acknowledged that while a substance abuse program has always been a considered option for him, he remained with ambivalence. -patient is at baseline. He remains vulnerable to relapse and emotional dysregulation however this is a chronic issue with him, 1 which will not resolve with longer stay on inpatient unit but which requires consistent outpatient therapy and pursuit of sobriety, with which patient is not yet ready to fully engage. He is not in imminent risk for harm to self or others and request for discharge honored. Plan: CV Q 15 minute checks continue Seroquel 350 mg q.h.s. Trileptal 300 mg b.i.d. Prazosin 7 mg q.h.s. Trazodone 100 mg q.h.s. Atorvastatin 20 mg daily Famotidine 40 mg daily Losartan 50 mg daily Metformin 50 mg b.i.d. Januvia 50 mg daily Reviewed labs and kidney function WNL Patient educated on: diagnosis, medication risk/benefits, substance abuse, therapeutic strategies and medical condition Informed Consent: understands Reason for continued inpatient stay Substantial Risk for: stable for discharge Time Spent With Patient Time: Total time managing care of this patient today ____ minutes.
--- NOTE | 2024-01-09 14:09 | P.DS_ITS ---
DS: Providers Provider Date of Service: 01/10/24 Date of admission: 01/02/24 14:39 Date of discharge: 01/10/24 Primary care physician: Unknown Physician Attending physician on admission: Mick Ramires Consults: 01/02/24 17:29 Addiction Medicine Routine Consulting Provider: Addiction Covering Reason for consultation: OD attempt 01/06/24 12:17 Consult to Hospitalist Routine Comment: Consulting Provider: Hospitalist Reason For Exam: cont.diarrhea,abdcramp;CDif neg; labs ord;vitalWNL Attending physician on discharge: Mick Ramires DS: Diagnosis Discharge Diagnosis (1) MDD (major depressive disorder), recurrent episode: Status: Acute (2) PTSD (post-traumatic stress disorder): Status: Acute (3) Cocaine use disorder: Status: Acute (4) Bipolar disorder: Status: Acute DS: Medications Discharge Medications Home Medications: Home Medications ?Medication ?Instructions ?Recorded ?Confirmed cholecalciferol (vitamin D3) 25 25 mcg PO DAILY 12/31/23 01/02/24 mcg (1,000 unit) tablet (Vitamin D3) famotidine 20 mg tablet 40 mg PO DAILY 12/31/23 01/02/24 melatonin 3 mg tablet 9 mg PO BEDTIME PRN insomnia 12/31/23 01/02/24 prazosin 2 mg capsule 2 mg PO BEDTIME 12/31/23 01/02/24 quetiapine 150 mg tablet 300 mg PO BEDTIME 12/31/23 01/02/24 Previous Rx's ?Medication ?Instructions ?Recorded hydroxyzine HCl 25 mg tablet 25 mg PO Q6H PRN Anxiety 30 days 11/28/23 #60 tabs losartan 50 mg tablet 50 mg PO DAILY 30 days #30 tabs 11/28/23 metformin 500 mg tablet 500 mg PO BID 30 days #60 tabs 11/28/23 oxcarbazepine 300 mg tablet 300 mg PO BID 30 days #60 tabs 11/28/23 trazodone 100 mg tablet 100 mg PO BEDTIME PRN insomnia 30 11/28/23 days #30 tabs atorvastatin 20 mg tablet 20 mg PO DAILY 30 days #30 tabs 01/09/24 Mental Status Exam Mental Status Exam Narrative: Pt is alert and oriented; behavior is cooperative, friendly and calm; patient is not in distress; dressed in hospital attire, facial tattoos facial piercings; adequate hygiene and grooming; described as good and affect congruent, brighter, more calm; eye contact appropriate; Speech is normal rate, volume and prosody and not pressured; no psychomotor retardation present; thought process is organized and goal directed; Thought content is on tx; otherwise pertinent to relevant topics and without any delusional content, paranoid ideations or grandiosity; No SI; no HI; No AVH Patients insight and judgment fair. Data Data Completed and Pending Completed studies during hospitalization [Text1]: 01/03/24 01/04/24 01/06/24 08:09 16:05 12:55 WBC 7.3 RBC 4.39 L Hgb 13.3 L Hct 39.7 L MCV 90.4 MCH 30.3 MCHC 33.5 RDW 14.3 Plt Count 257 MPV 10.0 Immature Gran % (Auto) 0.3 Neut % (Auto) 67.9 Lymph % (Auto) 20.1 Kingfisher % (Auto) 10.4 Eos % (Auto) 1.2 Baso % (Auto) 0.1 Lymph # (Auto) 1.5 Kingfisher # (Auto) 0.8 Eos # (Auto) 0.1 Baso # (Auto) 0.0 Abs Immat Gran (auto) 0.02 Absolute Neuts (auto) 4.9 Absolute Nucleated RBC 0.000 Nucleated RBC % (auto) 0.0 Sodium 142 139 Potassium 3.9 4.3 Chloride 105 107 Carbon Dioxide 29 24 Anion Gap 12 12 BUN 15 14 Creatinine 0.88 0.97 Estim Creat Clear Calc 150.1 136.2 Estimated GFR > 60 > 60 Random Glucose 84 Fasting Glucose 118 H Calcium 9.9 D 8.7 D Magnesium 2.0 Total Bilirubin 0.2 0.3 AST 46 H 15 ALT 43 H 29 Alkaline Phosphatase 73 95 Total Protein 6.6 6.8 Albumin 3.5 3.6 Triglycerides 143 Cholesterol 148 LDL Cholesterol, Calc 68 HDL Cholesterol 52 Lipase 43 Vitamin B12 425 TSH 0.71 Stl C. cayetanensis PCR Stool Rotavirus A PCR Stl Adenov F 40/41 PCR Stool Astrovirus (PCR) Stool Campylobacter PCR Stool Cryptosporidium PCR Stl Sh Tox Pr E STEC PCR Stool E coli O157 PCR Stl Enterotoxigenic E PCR Stool EPEC (PCR) Stool EAEC (PCR) Stl E. histolytica PCR Stool Giardia Lamblia PCR Stl P. shigelloides PCR Stool Salmonella PCR Stool Sapovirus (PCR) Stl Shigella/EIEC PCR St Y.enterocolitica PCR Stool Vibrio (PCR) Stl Vibrio cholerae PCR Stl Norovirus GI/GII PCR C. difficile Tox B Gene NEGATIVE 01/06/24 Unknown WBC RBC Hgb Hct MCV MCH MCHC RDW Plt Count MPV Immature Gran % (Auto) Neut % (Auto) Lymph % (Auto) Kingfisher % (Auto) Eos % (Auto) Baso % (Auto) Lymph # (Auto) Kingfisher # (Auto) Eos # (Auto) Baso # (Auto) Abs Immat Gran (auto) Absolute Neuts (auto) Absolute Nucleated RBC Nucleated RBC % (auto) Sodium Potassium Chloride Carbon Dioxide Anion Gap BUN Creatinine Estim Creat Clear Calc Estimated GFR Random Glucose Fasting Glucose Calcium Magnesium Total Bilirubin AST ALT Alkaline Phosphatase Total Protein Albumin Triglycerides Cholesterol LDL Cholesterol, Calc HDL Cholesterol Lipase Vitamin B12 TSH Stl C. cayetanensis PCR Not Detected Stool Rotavirus A PCR Not Detected Stl Adenov F 40/41 PCR Not Detected Stool Astrovirus (PCR) Not Detected Stool Campylobacter PCR Not Detected Stool Cryptosporidium PCR Not Detected Stl Sh Tox Pr E STEC PCR Not Detected Stool E coli O157 PCR Not applicable Stl Enterotoxigenic E PCR Not Detected Stool EPEC (PCR) Not Detected Stool EAEC (PCR) Not Detected Stl E. histolytica PCR Not Detected Stool Giardia Lamblia PCR Not Detected Stl P. shigelloides PCR Not Detected Stool Salmonella PCR Not Detected Stool Sapovirus (PCR) Not Detected Stl Shigella/EIEC PCR Not Detected St Y.enterocolitica PCR Not Detected Stool Vibrio (PCR) Not Detected Stl Vibrio cholerae PCR Not Detected Stl Norovirus GI/GII PCR Not Detected C. difficile Tox B Gene DS: Summary Hospital Course Hospital Course: HPI: Patient is a 38-year-old male with history of depression PTSD, mood lability, borderline personality traits cocaine use disorder, recently discharged a month ago who presents for depression and SI in the face of broken relationship and r elapse with cocaine. Patient transferred from medical floor where he was treated for IVIS, rhabdomyolysis secondary to excessive cocaine use. Patient reports that on medication regimen he was doing overall well however he had gone back to his girlfriend's instead of a program and thinks that the environment he was in was triggering and emotions started to increase; he went to [place] to stay with another female friend and ended up relapsing on cocaine. He continued taking medications throughout this past month however his cocaine abuse increased. Patient's girlfriend moved on to another person which depressed patient and brought up thoughts of suicide. He walked to the bridge though he says he was not really intending to jump. Patient instead self presented. Patient thinks it was impulsive to discharge to his girlfriend's last time acknowledges that he needs a program in order to stay sober. Hospital course: Depressed on admission; SI resolved. Mood congruent AVH. Continued on home medications. Patient developed diarrheal illness with nausea and vomiting which self resolved after several days; during bout pt exceedingly anxious about GI symptoms, asking if he can be cut into to see what's going. Absorption Plant Operator Helper thoroughly explained GI illness, treatment approach, which pt eventually understood. Patient soon improved On medications and with milieu therapy; depression resolved, mood was good and anxiety well controlled. Patient had some moments of high expressed emotion, misinterpreting staff's interactions, taking offense and feeling purposely on helped. Patient however was able to talk through these feelings and demonstrate good insight and judgment into realizing that he may be over-reacting and his allegations may very well be unfounded; patient talked about the origin of his emotional reactivity is likely from long history of trauma. Initially patient wanted to go to program and applications were sent. However patient eventually decided he preferred to discharge to a female friend's house with whom he has a romantic interest. Absorption Plant Operator Helper discussed risks of relapse and importance of focusing on his struggles with addiction; patient acknowledged he would probably benefit from going to a program but his mind was made up and he preferred to do otherwise, planning to work out his sobriety on his own; patient acknowledged that he had always been ambivalent about whether to attend program. Patient is at baseline. He is in a good mood, future oriented, without any SI or HI or AVH. Of course remains vulnerable to relapse and emotional dysregulation however this is a chronic issue with him, one which will not resolve with longer stay on inpatient unit but which requires consistent outpatient therapy and pursuit of sobriety, with which patient is not yet ready to fully engage. He is not in imminent risk for harm to self or others and request for discharge honored. Time spent discussing smoking cessation with patient: 3 to 10 minutes Status at Discharge Functional status at discharge: independent ambulation Overall status at discharge: patient is back to baseline Time Spent with Patient Time attestation: Total time managing care of this patient today ____ minutes. 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 Referrals: Physician,Unknown J [Primary Care Provider] - 1 Week Discharge Medications: New prazosin 5 mg capsule 5 mg PO BEDTIME 30 Days Qty: 30 1RF Rx Instructions: Take with 2 mg capsule quetiapine 50 mg Tablet 50 mg PO BEDTIME 30 Days Qty: 30 1RF Rx Instructions: Take with 300 mg tablet simethicone [Gas Relief (simethicone)] 80 mg Tablet,Chewable 80 mg PO QIDWMHS PRN (Reason: flatulance) 30 Days Qty: 60 0RF Januvia 50 mg Tablet 50 mg PO DAILY 30 Days Qty: 30 0RF Continued atorvastatin 20 mg tablet 20 mg PO DAILY 30 Days Qty: 30 1RF losartan 50 mg tablet 50 mg PO DAILY 30 Days Qty: 30 0RF metformin 500 mg tablet 500 mg PO BID 30 Days Qty: 60 0RF quetiapine 300 mg tablet 300 mg PO BEDTIME 30 Days Qty: 30 1RF Rx Instructions: Take with 50 mg tablet oxcarbazepine 300 mg tablet 300 mg PO BID 30 Days Qty: 60 1RF trazodone 100 mg Tablet 100 mg PO BEDTIME PRN (Reason: insomnia) 30 Days Qty: 30 1RF hydroxyzine HCl 25 mg Tablet 25 mg PO Q6H PRN (Reason: Anxiety) 30 Days Qty: 60 1RF prazosin 2 mg capsule 2 mg PO BEDTIME 30 Days Qty: 30 1RF Rx Instructions: Take with 5 mg capsule cholecalciferol (vitamin D3) [Vitamin D3] 25 mcg (1,000 unit) Tablet 25 mcg PO DAILY 30 Days Qty: 30 0RF Changed famotidine 20 mg tablet 20 mg PO BID 30 Days Qty: 60 1RF melatonin 5 mg tablet 10 mg PO BEDTIME PRN (Reason: sleep) 30 Days Qty: 60 1RF Discharge Orders: Discharge Order (Routine); Ordered 01/10/24 Ordered By: Mick Ramires Diet: Regular diet Activity on Discharge: As tolerated Stand Alone Forms: Patient Portal Discharge page Print Language: Estonian Care Plan Goals: Maintain mood and safe behaviors Take medications as prescribed Continue to pursue sobriety Practice coping skills Continue with outpatient providers and reach out to them as needed Health Concerns: Mood stability and behaviors Sobriety History of Elevated cholesterol Plan of Treatment: Follow up with your PCP, psychiatric provider and other outpatient providers regarding above concerns Take medications as prescribed Assessment: Risk assessment at time of discharge:? Patient was interviewed prior to discharge and found to be fully oriented and without any SI or HI. Patient has improved insight and judgment and wants to continue treatment. Patient is not in imminent risk of harm to self or others and has a safety plan that includes presenting to the closest ER or calling 911 if feeling unsafe.? Patient has been observed closely by nursing and unit staff throughout admission; patient has not engaged in any behaviors that suggest dangerousness to self or others and has demonstrated appropriate behaviors and impulse control
[2024-01-09 20:00] VITALS: BP 132/81; PULSE 89; RESP 18; TEMP 36.6; O2SAT 95
[2024-01-09] MEDS: QUEtiapine Fumarate 300 MG TABLET PO (22:04)
[2024-01-09] MEDS: traZODone HCL 100 MG TABLET PO (22:04)
[2024-01-09] MEDS: QUEtiapine Fumarate 50 MG TABLET PO (22:05)
[2024-01-10 07:45] VITALS: BP 135/78; PULSE 83; RESP 17; TEMP 36.1; O2SAT 96
[2024-01-10] MEDS: SITagliptin Phosphate 50 MG TABLET PO (08:24)
[2024-01-10] MEDS: Famotidine 20 MG TABLET PO (08:24)
[2024-01-10] MEDS: metFORMIN HCl 500 MG TABLET PO (08:24)
[2024-01-10] MEDS: Naloxone HCl Nasal TAKE HOME 4 MG SPRAY 8 MG NOSTRILALT (08:26)
--- NOTE | 2024-01-10 09:37 | P.PNPSI_ITS ---
Subjective Subjective Date of Service: 01/10/24 Reason For Visit: SI Diagnostics Vital Signs (24Hr): Vital Signs - 24 hr 01/09/24 20:00 01/10/24 07:45 Temperature 97.8 F 97.0 F Pulse Rate 89 83 Respiratory Rate 18 17 Blood Pressure 132/81 135/78 Pulse Oximetry 95 96 Oxygen Delivery Method Room Air Room Air BMI result Body Mass Index 36.6 Labs 01/06/24 12:55 01/06/24 12:55 Medications Medications Current Medications Acetaminophen (Acetaminophen 325 Mg Tablet) 650 mg PO Q6H PRN PRN Reason: Headache/Pain Mild Scale (1-3) Al Hydroxide/Mg Hydroxide (Magnesium Hydrox/Alum Hydrox 30 Ml Oral.Susp) 30 ml PO Q6H PRN PRN Reason: Heartburn/Nausea Last Admin: 01/05/24 09:39 Dose: 30 ml Atorvastatin Calcium (Atorvastatin Calcium 20 Mg Tablet) 20 mg PO DAILY [facility] Last Admin: 01/10/24 08:27 Dose: Not Given Calcium Carbonate (Calcium Carbonate 750 Mg Tab.Chew) 750 mg PO Q4H PRN PRN Reason: continued GERD Famotidine (Famotidine 20 Mg Tablet) 20 mg PO BID [facility] Last Admin: 01/10/24 08:24 Dose: 20 mg Hydroxyzine HCl (Hydroxyzine Hcl 25 Mg Tablet) 25 mg PO Q6H PRN PRN Reason: Anxiety Last Admin: 01/04/24 22:02 Dose: 25 mg Loperamide HCl (Loperamide Hcl 2 Mg Capsule) 4 mg PO Q4H PRN PRN Reason: Diarrhea Last Admin: 01/06/24 09:50 Dose: 4 mg Losartan Potassium (Losartan Potassium 50 Mg Tablet) 50 mg PO DAILY [facility]; Protocol Last Admin: 01/10/24 08:28 Dose: Not Given Magnesium Hydroxide (Milk Of Magnesia 30 Ml Oral.Susp) 30 ml PO DAILY PRN PRN Reason: Constipation Melatonin (Melatonin 3 Mg Tablet) 9 mg PO BEDTIME PRN PRN Reason: insomnia Last Admin: 01/06/24 21:26 Dose: 9 mg Metformin HCl (Metformin Hcl 500 Mg Tablet) 500 mg PO BID [facility] Last Admin: 01/10/24 08:24 Dose: 500 mg Ondansetron HCl (Ondansetron Odt 4 Mg Tab.Rapdis) 8 mg TRANSLINGU Q6H PRN PRN Reason: Nausea and Vomiting Last Admin: 01/06/24 09:58 Dose: 8 mg Oxcarbazepine (Oxcarbazepine 300 Mg Tablet) 300 mg PO BID [facility] Last Admin: 01/10/24 08:28 Dose: Not Given Prazosin HCl 5 mg/ Prazosin (HCl 2 mg) 7 mg PO BEDTIME ISAÍAS Last Admin: 01/09/24 22:06 Dose: Not Given Quetiapine Fumarate (Quetiapine Fumarate 300 Mg Tablet) 300 mg PO BEDTIME ISAÍAS Last Admin: 01/09/24 22:04 Dose: 300 mg Quetiapine Fumarate (Quetiapine Fumarate 50 Mg Tablet) 50 mg PO BEDTIME ISAÍAS Last Admin: 01/09/24 22:05 Dose: 50 mg Simethicone (Simethicone 80 Mg Tab.Chew) 80 mg PO QIDWMHS PRN PRN Reason: flatulance Last Admin: 01/09/24 08:39 Dose: 80 mg Sitagliptin Phosphate (Sitagliptin Phosphate 50 Mg Tablet) 50 mg PO DAILY [facility] Last Admin: 01/10/24 08:24 Dose: 50 mg Trazodone HCl (Trazodone Hcl 50 Mg Tablet) 50 mg PO BEDTIME MRX1 PRN PRN Reason: Insomnia Trazodone HCl (Trazodone Hcl 100 Mg Tablet) 100 mg PO BEDTIME [facility] Last Admin: 01/09/24 22:04 Dose: 100 mg Vitamin D (Cholecalciferol (Vitamin D3) 25 Mcg Tablet) 25 mcg PO DAILY [facility] Last Admin: 01/10/24 08:28 Dose: Not Given Allergies Allergies Allergy/AdvReac Type Severity Reaction Status Date / Time No Known Allergies Allergy Verified 12/30/23 23:10 Assessment & Plan Assessment & Plan (1) MDD (major depressive disorder), recurrent episode: Status: Acute Code(s): F33.9 - Major depressive disorder, recurrent, unspecified (2) PTSD (post-traumatic stress disorder): Status: Acute Code(s): F43.10 - Post-traumatic stress disorder, unspecified (3) Cocaine use disorder: Status: Acute Code(s): F14.10 - Cocaine abuse, uncomplicated (4) Bipolar disorder: Status: Inactive Code(s): F31.9 - Bipolar disorder, unspecified Plan HPI: Patient is a 38-year-old male with history of depression PTSD, mood lability, cocaine use disorder, recently discharged a month ago who presents for depression and SI in the face of broken relationship and relapse with cocaine. Patient transferred from medical floor where he was treated for IVIS, rhabdomyolysis secondary to excessive cocaine use. Patient reports that on medication regimen he was doing overall well however he had gone back to his girlfriend's instead of a program and thinks that the environment he was in was triggering and emotions started to increase; he went to [place] to stay with another female friend and ended up relapsing on cocaine. He continued taking medications throughout this past month however his cocaine abuse increased. Patient's girlfriend moved on to another person which depressed patient and brought up thoughts of suicide. He walked to the bridge though he says he was not really intending to jump. Patient instead self presented. Patient thinks it was impulsive to discharge to his girlfriend's last time acknowledges that he needs a program in order to stay sober. Hospital course: 01/03 Reports doing a little better and slept last night however patient nauseous, vomiting and with diarrhea distracting from further conversation. No other symptoms Zofran/Imodium ordered C diff ordered 01/04 nausea and vomiting subsiding; loose stool subsiding; saw shadow figure out the corner of his eye and asks for Seroquel to be increased to 350 mg C diff -negative 01/05 Continued GI symptoms though less so. Pt exceedingly anxious about GI symptoms, asking if he can be cut into to see what's going. Violent Crimes Detective thoroughly explained GI illness, treatment approach, which pt eventually understood. Labs ordered; stool samples pending. 01/06 improving; GI labs wnl 01/07 pt continues to improve and reports overall feeling much better, mood is good and anxiety under control; wants program and focused on getting into a program. Did not take some meds yesterday worried they maybe cause of recent, now mostly resolved diarrheal illness. Violent Crimes Detective provided education how this was very unlikely and pt agrees to continue with medications, which he finds helpul and on which wants to remain (statin was one of his worries). -Patient was triggered today in [place], misinterpreting staff's interaction and labeling staff person racist; sullen for part of the day but willing later on to engage with executive secretary social welfare and then jingle writer in a good discussion about his history, dealing with severe racism in [place] and how he remains easily triggered on this topic. Pt demonstrated good insight sharing that he knows he can not read other peoples minds and misinterprets things, something he is committed to working on. Discussed substance abuse and how he falls back into the pattern of cocaine abuse. -patient is at baseline. In talking about dispo, patient says that he has a sober friend that is willing to let him live with him starting next Friday. He says if he gets into a program he will go to that instead but otherwise will discharge there. 01/08 Patient reports that a female friend of his, with whom he has a romantic interest has offered for him to come live with her. Discussed getting into a program patient said that at this point even if he got into a program he would still rather go live with her, feeling that this is a positive relationship that might be able to endure, that she is sober, and this is what he wants. Violent Crimes Detective discussed risks of relapse and need for consistent focus on dealing with his addiction issues, that avoiding this puts him at high risk for relapse. Patient agrees with jingle writer and says that while it is likely true, that he should go to a program he is willing to take that risk for this relationship. He reports being in a good mood, optimistic, future oriented, no SI/HI or AVH and requesting discharge. Violent Crimes Detective underscored that this is definitely a change of direction. Patient acknowledged that while a substance abuse program has always been a considered option for him, he remained with ambivalence. -patient is at baseline. He remains vulnerable to relapse and emotional dysregulation however this is a chronic issue with him, 1 which will not resolve with longer stay on inpatient unit but which requires consistent outpatient therapy and pursuit of sobriety, with which patient is not yet ready to fully engage. He is not in imminent risk for harm to self or others and request for discharge honored. Plan: CV Q 15 minute checks continue Seroquel 350 mg q.h.s. Trileptal 300 mg b.i.d. Prazosin 7 mg q.h.s. Trazodone 100 mg q.h.s. Atorvastatin 20 mg daily Famotidine 40 mg daily Losartan 50 mg daily Metformin 50 mg b.i.d. Januvia 50 mg daily Reviewed labs and kidney function WNL Time Spent With Patient Time: Total time managing care of this patient today ____ minutes.
== END 2024-01-10 10:23 | disposition home or self-care (01) | DRG 751 ==
PROVIDERS: Physician Assistant; Social Worker; Admitting Provider Internal Medicine; Visit Provider Psychiatry & Neurology Psychiatry
DX: F33.3 Major depressive disorder, recurrent, severe with psychotic symptoms (principal); R45.851 Suicidal ideations; E11.9 Type 2 diabetes mellitus without complications; F17.210 Nicotine dependence, cigarettes, uncomplicated; F43.10 Post-traumatic stress disorder, unspecified; R19.7 Diarrhea, unspecified; F14.10 Cocaine abuse, uncomplicated; Z71.6 Tobacco abuse counseling; Z79.84 Long term (current) use of oral hypoglycemic drugs; Z79.899 Other long term (current) drug therapy
CPT/HCPCS: 36415; 80053; 80061; 82607; 83690; 83735; 84443; 85025; 87493; 87507

== ENCOUNTER → 2024-01-02 14:39 | Outpatient (BNV) | payer OTHER, SELFPAY | PROVIDERS: Admitting Provider Internal Medicine; Visit Provider Psychiatry & Neurology Psychiatry | DX: F33.9 Major depressive disorder, recurrent, unspecified (principal); F43.10 Post-traumatic stress disorder, unspecified; F14.10 Cocaine abuse, uncomplicated | CPT/HCPCS: 90792; 99232; 99239 ==